=== PATIENT | female | born 1940 | race Caucasian/White ===

== ENCOUNTER 2016-08-11 06:34 | Day surgery (SDC) | payer MEDICARE, MEDICAID ==
[2016-08-11] VITALS (7 sets, daily range): BP systolic 106–139; BP diastolic 55–102; PULSE 60–77; RESP 12–20; TEMP 97–97.8; O2SAT 96–97; Ht 165.1 cm; Wt 53.2 kg
[~2016-08-11] VITALS: Ht 165.1 cm; Wt 53.2 kg
[~2016-08-11 06:34] MED LIST: ALBU18HF2 PO; COD1CAPS7 PO; CYAN10009 PO; CYAN1TAB46 PO; DIPH25CA84 PO; FLUT1AER INH; LEVO75TA10 PO; MOME13HF3 INH; MULT1TAB69 PO; VITA1TAB21 PO; ZINC50TA4 PO
--- OUTSIDE RECORDS SUMMARY | 2016-08-11 06:39 | XMS REPORT | Referral Summary ---
Author Author [facility], [facility] Organization [facility] Address Unknown Phone Unavailable Care Team Providers Care Railway Switchman Name Role Phone Oral Grant Primary Care Physician [phone] Encounter VC Date(s): 07/24/15 - 07/24/15 [facility], [address] [place] [address]- Discharge Diagnosis: External otitis Discharge Disposition: 01-Home or Self Care Attending Physician: Reed Grant MD Admitting Physician: Reed Grant MD Vital Signs Most recent to 1 oldest [Reference Range]: Peripheral Pulse 77 bpm Rate [60-100 bpm] (07/24/15 3:35 PM) Blood Pressure 134/78 mmHg [90-140/60-90 mmHg] (07/24/15 3:35 PM) SpO2 96 % (07/24/15 3:35 PM) Problem List Condition Effective Dates Status Health Status Informant Hay fever(Confirmed) Active allergy Resolved rhinitis(Confirmed) anxiety(Confirmed) Resolved Arthritis(Confirmed) Resolved asthma/emphyzema(Con Resolved firmed) Benign essential Active hypertension(Confirm ed) bipolar(Confirmed) Resolved Breast Active mass(Confirmed) Chronic low back Active pain(Confirmed) COPD (chronic Resolved obstructive pulmonary disease)(Confirmed) Fusion of spine of Active lumbar region(Confirmed) Disc degeneration, Active lumbosacral(Confirme d) Depression(Confirmed Resolved ) dysuria(Confirmed) Resolved Emphysema(Confirmed) Resolved GERD Resolved (gastroesophageal reflux disease)(Confirmed) Anxiety(Confirmed) Active History of Active melanoma(Confirmed) Hypothyroidism(Confi Resolved rmed) 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) Colitis(Confirmed) Active Lumbago(Confirmed) Active Lumbar Active post-laminectomy syndrome(Confirmed) Other malaise and Active fatigue(Confirmed) Melanoma(Confirmed) Resolved Lumbar Active radiculitis(Confirme d) Lumbar Active radiculitis(Confirme d) Lumbar disc Active herniation(Confirmed ) reflux(Confirmed) Resolved right eye retinal Resolved tear(Confirmed) stress Resolved incontinence(Confirm ed) Thoracic and Active lumbosacral neuritis(Confirmed) Tobacco Active patient user(Confirmed) Trigonitis(Confirmed Active ) ulcers(Confirmed) Resolved UTI (urinary tract Active infection)(Confirmed ) Vaginitis(Confirmed) Active Allergies, Adverse Reactions, Alerts Substance Reaction Severity Status Bactrim DS Active bismuth subsalicylate Active codeine Active meperidine Active Medications amoxicillin 875 mg oral tablet 875 mg 1 tabs, Oral, BID, X 10 days, # 20 tabs, 0 Refill(s), Pharmacy: [facility] #[id number], 1 tabs Oral BID,x10 days Start Date: 07/24/15 Stop Date: 08/03/15 Status: Ordered cetirizine 10 mg oral tablet 10 mg 1 tabs, Oral, Daily, 0 Refill(s) Start Date: 01/13/15 Status: Ordered Cortisporin otic solution 4 drops, Ear-Right, QID, # 10 mL, 0 Refill(s), Pharmacy: [facility] # [id number] Start Date: 07/24/15 Stop Date: 08/05/15 Status: Ordered estradiol 0.1 mg/g vaginal cream 1 g, Vaginal, 3x/Wk, APPOINTMENT NEEDED PRIOR TO ADDITIONAL REFILLS., # 42 g, 0 Refill(s), Pharmacy: [facility] #[id number] Start Date: 05/22/15 Status: Ordered levothyroxine 75 mcg (0.075 mg) oral tablet See Instructions, TAKE ONE TABLET BY MOUTH DAILY, # 30 tabs, 2 Refill(s), eRx: [facility] #[id number], TAKE ONE TABLET BY MOUTH DAILY Start Date: 02/16/15 Status: Ordered Lexapro 5 mg oral tablet 5 mg 1 tabs, Oral, Daily, # 30 tabs, 1 Refill(s), Pharmacy: [facility] # [id number], 1 tabs Oral Daily Start Date: 03/27/15 Status: Ordered Robaxin 500 mg oral tablet 500 mg 1 tabs, Oral, QID, as needed for pain, # 120 tabs, 0 Refill(s), Pharmacy : [facility] #[id number], 1 tabs Oral QID,PRN:as needed for pain Start Date: 01/22/15 Status: Ordered Symbicort 80 mcg-4.5 mcg/inh inhalation aerosol 2 puffs, Inhalation, BID, # 10.2 g, 3 Refill(s), Pharmacy: [facility] # [id number] Start Date: 05/21/15 Status: Ordered Ventolin HFA 90 mcg/inh inhalation aerosol 2 puffs, Inhalation, QID, # 2 Each, 3 Refill(s), Pharmacy: [facility] # [id number], 2 puffs Inhalation QID Start Date: 01/01/15 Status: Ordered Vitamin B-12 5,000 mcg, 0 Refill(s) Start Date: 10/09/13 Status: Ordered Vitamin B6 100 mg oral tablet 2 tabs, Oral, Daily, 0 Refill(s) Start Date: 10/09/13 Status: Ordered Vitamin C 500 mg, Oral, 0 Refill(s) Start Date: 10/09/13 Status: Ordered Results No data available for this section Immunizations Vaccine Date Refusal Reason tetanus/diphth/pertuss (Tdap) adult/adol1 07/11/15 influenza virus vaccine, inactivated2 02/02/15 influenza virus vaccine, inactivated 02/07/14 influenza virus vaccine, live 01/22/13 pneumococcal 13-valent conjugate vaccine3 02/02/15 pneumococcal 23-polyvalent vaccine 01/16/04 tetanus-diphth toxoids (Td) adult/adol 02/18/08 tetanus-diphth toxoids (Td) adult/adol 08/16/96 tetanus-diphth toxoids (Td) adult/adol 08/16/96 1Location History: given [facility] 2Location History: [facility] 3Location History: [facility] Procedures Procedure Date Related Diagnosis Body Site Right L2-3 Transforminal 12/12/13 Left L4-5 Transforaminal 05/19/11 cystoscopy1 11/05/10 Cholecystectomy;2 2008 Colonoscopy3 07/04/07 Esophagogastroduodenoscopy4 07/04/07 colonoscopies 1999 [facility] - Total abdominal hysterectomy and 1972 bilateral salpingo-oophorectomy hysterectomy5 1968 tonsilectomy 1956 anterior lumbar fusion 2006 Cataract surgery left knee menisectomy skin graft left buttock 11st coaptite suburethral bulking implant 2laparoscopic Dr. Collins 3with polypectomy showing 2 polps of hyperplastic origin. Plan repeat in 10 yrs (06/25/2017) 4Showing fundic gland polyp 5vaginal Social History Social History Type Response Smoking Status Current every day smoker; Type: Cigarettes; Tobacco use per day: 1 Pack; Number of years: 40 Assessment and Plan Extracted from: Title: Ambulatory Patient Education Author: Reed Grant MD Date: Behavioral Health Panic Attacks Panic attacks are sudden, short-livedsurges of severe anxiety, fear, or discomfort. They may occur for no reason when you are relaxed, when you are anxious, or when you are sleeping. Panic attacks may occur for a number of reasons: Healthy people occasionally have panic attacks in extreme, life- threatening situations, such as war or natural disasters. Normal anxiety is a protective mechanism of the body that helps us react to danger (fight or flight response). Panic attacks are often seen with anxiety disorders, such as panic disorder, social anxiety disorder, generalized anxiety disorder, and phobias. Anxiety disorders cause excessive or uncontrollable anxiety. They may interfere with your relationships or other life activities. Panic attacks are sometimes seen with other mental illnesses, such as depression and posttraumatic stress disorder. Certain medical conditions, prescription medicines, and drugs of abuse can cause panic attacks. SYMPTOMS Panic attacks start suddenly, peak within 20 minutes, and are accompanied by four or more of the following symptoms: Pounding heart or fast heart rate (palpitations). Sweating. Trembling or shaking. Shortness of breath or feeling smothered. Feeling choked. Chest pain or discomfort. Nausea or strange feeling in your stomach. Dizziness, light-headedness, or feeling like you will faint. Chills or hot flushes. Numbness or tingling in your lips or hands and feet. Feeling that things are not real or feeling that you are not yourself. Fear of losing control or going crazy. Fear of dying. Some of these symptoms can mimic serious medical conditions. For example, you may think you are having a heart attack. Although panic attacks can be very scary, they are not life threatening. DIAGNOSIS Panic attacks are diagnosed through an assessment by your health care provider. Your health care provider will ask questions about your symptoms, such as where and when they occurred. Your health care provider will also ask about your medical history and use of alcohol and drugs, including prescription medicines. Your health care provider may order blood tests or other studies to rule out a serious medical condition. Your health care provider may refer you to a mental health professional for further evaluation. TREATMENT Most healthy people who have one or two panic attacks in an extreme, life -threatening situation will not require treatment. The treatment for panic attacks associated with anxiety disorders or other mental illness typically involves counseling with a mental health professional, medicine, or a combination of both. Your health care provider will help determine what treatment is best for you. Panic attacks due to physical illness usually go away with treatment of the illness. If prescription medicine is causing panic attacks, talk with your health care provider about stopping the medicine, decreasing the dose, or substituting another medicine. Panic attacks due to alcohol or drug abuse go away with abstinence. Some adults need professional help in order to stop drinking or using drugs. HOME CARE INSTRUCTIONS Take all medicines as directed by your health care provider. Schedule and attend follow-up visits as directed by your health care provider. It is important to keep all your appointments. SEEK MEDICAL CARE IF: You are not able to take your medicines as prescribed. Your symptoms do not improve or get worse. SEEK IMMEDIATE MEDICAL CARE IF: You experience panic attack symptoms that are different than your usual symptoms. You have serious thoughts about hurting yourself or others. You are taking medicine for panic attacks and have a serious side effect. MAKE SURE YOU: Understand these instructions. Will watch your condition. Will get help right away if you are not doing well or get worse. This information is not intended to replace advice given to you by your health care provider. Make sure you discuss any questions you have with your health care provider. Document Released: 04/24/2006 Document Revised: 04/29/2014 Document Reviewed: [employer] Patient Information 2015 [employer]. Family Medicine Ear Drops You have been diagnosed with a condition requiring you to put drops of medicine into your outer ear. HOME CARE INSTRUCTIONS Put drops in the affected ear as instructed. After putting the drops in, you will need to lie down with the affected ear facing up for ten minutes so the drops will remain in the ear canal and run down and fill the canal. Continue using the ear drops for as long as directed by your health care provider. Prior to getting up, put a cotton ball gently in your ear canal. Leave enough of the cotton ball out so it can be easily removed. Do not attempt to push this down into the canal with a cotton-tipped swab or other instrument. Do not irrigate or wash out your ears if you have had a perforated eardrum or mastoid surgery, or unless instructed to do so by your health care provider. Keep appointments with your health care provider as instructed. Finish all medicine, or use for the length of time prescribed by your health care provider. Continue the drops even if your problem seems to be doing well after a couple days, or continue as instructed. SEEK MEDICAL CARE IF: You become worse or develop increasing pain. You notice any unusual drainage from your ear (particularly if the drainage has a bad smell). You develop hearing difficulties. You experience a serious form of dizziness in which you feel as if the room is spinning, and you feel nauseated (vertigo). The outside of your ear becomes red or swollen or both. This may be a sign of an allergic reaction. MAKE SURE YOU: Understand these instructions. Will watch your condition. Will get help right away if you are not doing well or get worse. This information is not intended to replace advice given to you by your health care provider. Make sure you discuss any questions you have with your health care provider. Document Released: 04/18/2002 Document Revised: 04/29/2014 Document Reviewed: [facility] Patient Information 2015 [employer]. Abscess An abscess is an infected area that contains a collection of pus and debris. It can occur in almost any part of the body. An abscess is also known as a furuncle or boil. CAUSES An abscess occurs when tissue gets infected. This can occur from blockage of oil or sweat glands, infection of hair follicles, or a minor injury to the skin. As the body tries to fight the infection, pus collects in the area and creates pressure under the skin. This pressure causes pain. People with weakened immune systems have difficulty fighting infections and get certain abscesses more often. SYMPTOMS Usually an abscess develops on the skin and becomes a painful mass that is red, warm, and tender. If the abscess forms under the skin, you may feel a moveable soft area under the skin. Some abscesses break open (rupture) on their own, but most will continue to get worse without care. The infection can spread deeper into the body and eventually into the bloodstream, causing you to feel ill. DIAGNOSIS Your caregiver will take your medical history and perform a physical exam. A sample of fluid may also be taken from the abscess to determine what is causing your infection. TREATMENT Your caregiver may prescribe antibiotic medicines to fight the infection. However, taking antibiotics alone usually does not cure an abscess. Your caregiver may need to make a small cut (incision) in the abscess to drain the pus. In some cases, gauze is packed into the abscess to reduce pain and to continue draining the area. HOME CARE INSTRUCTIONS Only take cden-djo-gboinru or prescription medicines for pain, discomfort , or fever as directed by your caregiver. If you were prescribed antibiotics, take them as directed. Finish them even if you start to feel better. If gauze is used, follow your caregiver's directions for changing the gauze. To avoid spreading the infection: Keep your draining abscess covered with a bandage. Wash your hands well. Do not share personal care items, towels, or whirlpools with others. Avoid skin contact with others. Keep your skin and clothes clean around the abscess. Keep all follow-up appointments as directed by your caregiver. SEEK MEDICAL CARE IF: You have increased pain, swelling, redness, fluid drainage, or bleeding. You have muscle aches, chills, or a general ill feeling. You have a fever. MAKE SURE YOU: Understand these instructions. Will watch your condition. Will get help right away if you are not doing well or get worse. This information is not intended to replace advice given to you by your health care provider. Make sure you discuss any questions you have with your health care provider. Document Released: 02/01/2006 Document Revised: 10/23/2012 Document Reviewed: [employer] Patient Information 2015 [employer]. No follow up information was provided. Extracted from: Title: Office Visit Note Author: Reed Grant MD Date: 07/24/15 Assessment/Plan Abscess of right external ear, External otitis Cortisporin Otic, Amoxicillin 875mg bid. Ordered: Office Visit Level 4 Est 64260 Anxiety Would like to get her back on Lexapro but she refused. Ordered: Office Visit Level 4 Est 36620 Orders: amoxicillin, 875 mg 1 tabs, Oral, BID, X 10 days, # 20 tabs, 0 Refill( s), Pharmacy: [facility] #[id number], 1 tabs Oral BID,x10 days neomycin/polymyxin B/hydrocortisone otic, 4 drops, Ear-Right, QID, # 10 mL, 0 Refill(s), Pharmacy: [facility] #[id number]
--- OUTSIDE RECORDS SUMMARY | 2016-08-11 06:39 | XMS REPORT | Summary of Care ---
Author Author Mykel Benavides, Lewis Organization Unknown Address Unknown Phone Unavailable Care Team Providers Care Resident Buyer Name Role Phone Lewis Hogue M.D. Unavailable Unavailable Reed Grant Unavailable Unavailable Unavailable Unavailable Functional Status Name Dates Details Functional status health issues are not documented Status: Name Dates Details Cognitive status health issues are not documented Status: Problems Name Dates Details Hypertension (401.9, I10) Status: Active Anxiety (300.00, F41.9) Status: Active Colitis (558.9, K52.9) Status: Active Chronic low back pain (724.2, M54.5) Status: Active Disc degeneration (722.6) Status: Active UTI (urinary tract infection) (599.0, N39.0) Status: Active Vaginitis (616.10, N76.0) Status: Active Trigonitis (595.3, N30.30) Status: Active 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 * Start 23-Feb-2016 Active Ventolin HFA 108 (90 Base) MCG/ACT Inhalation Aerosol Solution * Refills: 0 Lewis Hogue M.D. * Start 23-Feb-2016 Active Cetirizine HCl - 10 MG Oral Tablet TAKE 1 TABLET DAILY DIRECTED. * Refills: 0 * Start 26-Feb-2016 Active Cod Liver Oil Oral Capsule 1 capsule daily * Refills: 0 * Start 26-Feb-2016 Active Estrace 0.1 MG/GM Vaginal Cream APPLY A PEA-SIZED AMOUNT TO VAGINAL OPENING EVERY MONDAY, MONDAY, AND MONDAY EVENING. * Refills: 0 * Start 26-Feb-2016 Active Ferrous Sulfate 27 MG Oral Tablet TAKE DIRECTED. * Refills: 0 * Start 26-Feb-2016 Active Lexapro 5 MG Oral Tablet TAKE 1 TABLET DAILY. * Refills: 0 * Start 26-Feb-2016 Active Robaxin 500 MG Oral Tablet TAKE 1 TABLET 3 TIMES DAILY. * Refills: 0 * Start 26-Feb-2016 Active Symbicort 80-4.5 MCG/ACT Inhalation Aerosol INHALE 2 PUFFS TWICE DAILY. RINSE MOUTH AFTER USE. * Refills: 0 * Start 26-Feb-2016 Active Vitamin B12 1000 MCG Oral Tablet Extended Release 5000mcg daily * Refills: 0 * Start 26-Feb-2016 Active Vitamin B6 200 MG Oral Tablet TAKE 1 TABLET DAILY DIRECTED. * Refills: 0 * Start 26-Feb-2016 Active Vitamin C 500 MG Oral Tablet TAKE 1 TABLET DAILY. * Refills: 0 * Start 26-Feb-2016 Active Allergies and Adverse Reactions Name Dates Details Bactrim (Allergy) Status: Active codeine (Allergy) Status: Active meperidine (Allergy) Status: Active Pepto-Bismol (Allergy) Status: Active Past Medical History Name Dates Details History of Bipolar depression (296.50, F31.30) Status: Resolved History of chronic obstructive lung disease (V12.69, Z87.09) Status: Resolved History of depression (V11.8, Z86.59) Status: Resolved History of Dysuria (788.1, R30.0) Status: Resolved History of esophageal reflux (V12.79, Z87.19) Status: Resolved History of hypothyroidism (V12.29, Z86.39) Status: Resolved History of malignant melanoma (V10.82, Z85.820) Status: Resolved History of pulmonary emphysema (V12.69, Z87.09) Status: Resolved History of Stress incontinence, female (625.6, N39.3) Status: Resolved Procedures Procedure Dates Details History of Hysterectomy History of Tonsillectomy History of Salpingo-oophorectomy Bilat Laparosc Removal Of Both Ovaries & Tubes History of Cystoscopy (Diagnostic) History of Cholecystectomy History of Colonoscopy History of Diagnostic Esophagogastroduodenoscopy History of Cataract Extraction History of Arthrodesis Lumbar By Anterior Approach History of Graft Harvesting Procedures not documented Immunization Name Dates Details Immunizations not documented Family History Name Dates Details Family history of asthma (V17.5, Z82.5) Status: Active Family history of Parkinson disease, symptomatic (332.0, G20) Status: Active Name Dates Details Family history of Emphysema lung (492.8, J43.9) Status: Active Name Dates Details Family history of lung cancer (V16.1, Z80.1) Status: Active Social History Name Dates Details - Status: Name Dates Details Current every day smoker Vital Signs Date Test Result Details 22-Mar-2016 10:47 Temperature 98.1 f Status: Comments: Method: Heart Rate 90 /min Status: Comments: Location: ; Physical Findings 96 Status: Comments: O2 Saturation 16-Mar-2016 13:45 BP Systolic 121 mm[Hg] Status: Comments: Location: ; Position: BP Diastolic 66 mm[Hg] Status: Comments: Location: ; Position: Heart Rate 75 /min Status: Comments: Location: ; Height 65.5 in Status: Weight 106 lb Status: Body Mass Index Calculated 17.37 kg/m2 Status: Body Surface Area Calculated 1.52 m2 Status: 23-Feb-2016 11:35 BP Systolic 127 mm[Hg] Status: BP Diastolic 80 mm[Hg] Status: Temperature 97.9 f Status: Comments: Method: Heart Rate 79 /min Status: Comments: Location: ; Height 65.5 in Status: Weight 106 lb Status: Body Mass Index Calculated 17.37 kg/m2 Status: Body Surface Area Calculated 1.52 m2 Status: Results Date Description Value Details Results not documented Plan of Care Name Dates Details Planned Observations Planned Goals not documented Planned Encounters Appointment; Provider: Brandon Brice M.D. On 23-Mar-2016 15:30 Instructions Name Dates Details Instructions not documented Encounters Appointment; Brandon Brice M.D. Encounter Diagnosis: Problem not documented On 16-Mar-2016 13:45 Appointment; Lewis Hogue M.D. Encounter Diagnosis: Problem not documented On 23-Feb-2016 11:00
--- OUTSIDE RECORDS SUMMARY | 2016-08-11 06:39 | XMS REPORT | Referral Summary ---
Author Author [facility] Medicine Organization [facility] Address Unknown Phone Unavailable Care Team Providers Care Citizenship Instructor Name Role Phone Oral Grant Primary Care Physician [phone] Encounter VC Date(s): 03/21/16 - 03/21/16 [facility] [address] [place] [address] Discharge Diagnosis: Emphysema/COPD Discharge Diagnosis: Chronic obstructive pulmonary disease, unspecified Discharge Diagnosis: Anxiety Discharge Disposition: 01-Home or Self Care Attending Physician: Reed Grant MD Admitting Physician: Reed Grant MD Vital Signs Most recent to 1 oldest [Reference Range]: Blood Pressure 106/64 mmHg [90-140/60-90 mmHg] (03/21/16 11:14 AM) Problem List Condition Effective Dates Status Health [...] subsalicylate Active codeine Active meperidine Active Medications cetirizine 10 mg oral tablet 10 mg 1 tabs, Oral, Daily, 0 Refill(s) Start Date: 01/13/15 Status: Ordered Cod Liver Oil oral capsule 1 caps, Oral, Daily, # 30 caps, 0 Refill(s) Start Date: 11/02/15 Status: Ordered Estrace Vaginal 0.1 mg/g vaginal cream See Instructions, APPLY 1 GM VAGINALLY 3 TIMES WEEKLY -- MUST CALL MD FOR APPOINTMENT, # 42.5 unknown unit, eRx: [facility] #[id number], APPLY 1 GM VAGINALLY 3 TIMES WEEKLY -- MUST CALL MD FOR APPOINTMENT Start Date: 01/19/16 Status: Ordered ferrous sulfate Oral, 0 Refill(s) Start Date: 12/30/15 Status: Ordered levothyroxine 75 mcg (0.075 mg) oral tablet See Instructions, TAKE ONE TABLET BY MOUTH DAILY, # 30 tabs, eRx: [facility] #[id number], TAKE ONE TABLET BY MOUTH DAILY Start Date: 03/09/16 Status: Ordered Lexapro 5 mg oral tablet 5 mg 1 tabs, Oral, Daily, # 30 tabs, 1 Refill(s), Pharmacy: [facility] # [id number], 1 tabs Oral Daily Start Date: 03/27/15 Status: Ordered Robaxin 500 mg oral tablet 500 mg 1 tabs, Oral, QID, as needed for pain, # 120 tabs, 0 Refill(s), Pharmacy : [facility] #[id number], 1 tabs Oral QID,PRN:as needed for pain Start Date: 01/22/15 Status: Ordered Ventolin HFA 90 mcg/inh inhalation aerosol See Instructions, INHALE TWO PUFFS BY MOUTH FOUR TIMES A DAY NEEDED FOR WHEEZING, # 18 unknown unit, 2 Refill(s), eRx: [facility] #[id number], INHALE TWO PUFFS BY MOUTH FOUR TIMES A DAY NEEDED FOR WHEEZING Start Date: 02/05/16 Status: Ordered Vitamin B-12 5,000 mcg, 0 Refill(s) Start Date: 10/09/13 Status: Ordered Vitamin B6 100 mg oral tablet 2 tabs, Oral, Daily, 0 Refill(s) Start Date: 10/09/13 Status: Ordered Vitamin C 500 mg, Oral, 0 Refill(s) Start Date: 10/09/13 Status: Ordered Results No data available for this section Immunizations Vaccine Date Refusal Reason tetanus/diphth/pertuss (Tdap) adult/adol1 07/11/15 influenza virus vaccine, inactivated 02/24/16 influenza virus vaccine, inactivated2 02/02/15 influenza virus vaccine, inactivated 02/07/14 influenza virus vaccine, live 01/22/13 pneumococcal 13-valent conjugate vaccine3 02/02/15 pneumococcal 23-polyvalent vaccine 01/16/04 tetanus-diphth toxoids (Td) adult/adol 02/18/08 tetanus-diphth toxoids (Td) adult/adol 08/16/96 tetanus-diphth toxoids (Td) adult/adol 08/16/96 1Location History: given [facility] 2Location History: [place] 3Location History: [place] Procedures Procedure Date Related Diagnosis Body Site Right L2-3 Transforminal 12/12/13 Left L4-5 Transforaminal 05/19/11 cystoscopy1 11/05/10 Cholecystectomy;2 2008 Colonoscopy3 07/04/07 Esophagogastroduodenoscopy4 07/04/07 colonoscopies 1999 BSO - Total abdominal hysterectomy and 1972 bilateral salpingo-oophorectomy hysterectomy5 1967 tonsilectomy 1956 anterior lumbar fusion 2006 Cataract surgery left knee menisectomy skin graft left buttock 11st coaptite suburethral bulking implant 2laparoscopic Dr. Collins 3with polypectomy showing 2 polps of hyperplastic origin. Plan repeat in 10 yrs (06/25/2017) 4Showing fundic gland polyp 5vaginal Social History Social History Type Response Smoking Status Current every day smoker; Type: Cigarettes; Tobacco use per day: Pack; Number of years: 40 Assessment and Plan Extracted from: Title: Ambulatory Patient Education Author: Reed Grant MD Date: Emergency Medicine Chronic Obstructive Pulmonary Disease Chronic obstructive pulmonary disease (COPD) is a common lung condition in which airflow from the lungs is limited. COPD is a general term that can be used to describe many different lung problems that limit airflow, including both chronic bronchitis and emphysema. If you have COPD, your lung function will probably never return to normal, but there are measures you can take to improve lung function and make yourself feel better. CAUSES Smoking (common). Exposure to secondhand smoke. Genetic problems. Chronic inflammatory lung diseases or recurrent infections. SYMPTOMS Shortness of breath, especially with physical activity. Deep, persistent (chronic) cough with a large amount of thick mucus. Wheezing. Rapid breaths (tachypnea). Villarreal or bluish discoloration (cyanosis) of the skin, especially in your fingers, toes, or lips. Fatigue. Weight loss. Frequent infections or episodes when breathing symptoms become much worse (exacerbations). Chest tightness. DIAGNOSIS Your health care provider will take a medical history and perform a physical examination to diagnose COPD. Additional tests for COPD may include: Lung (pulmonary) function tests. Chest X-ray. CT scan. Blood tests. TREATMENT Treatment for COPD may include: Inhaler and nebulizer medicines. These help manage the symptoms of COPD and make your breathing more comfortable. Supplemental oxygen. Supplemental oxygen is only helpful if you have a low oxygen level in your blood. Exercise and physical activity. These are beneficial for nearly all people with COPD. Lung surgery or transplant. Nutrition therapy to gain weight, if you are underweight. Pulmonary rehabilitation. This may involve working with a team of health care providers and specialists, such as respiratory, occupational, and physical therapists. HOME CARE INSTRUCTIONS Take all medicines (inhaled or pills) as directed by your health care provider. Avoid juyc-xdr-qchreex medicines or cough syrups that dry up your airway (such as antihistamines) and slow down the elimination of secretions unless instructed otherwise by your health care provider. If you are a smoker, the most important thing that you can do is stop smoking. Continuing to smoke will cause further lung damage and breathing trouble. Ask your health care provider for help with quitting smoking. He or she can direct you to community resources or hospitals that provide support. Avoid exposure to irritants such as smoke, chemicals, and fumes that aggravate your breathing. Use oxygen therapy and pulmonary rehabilitation if directed by your health care provider. If you require home oxygen therapy, ask your health care provider whether you should purchase a pulse oximeter to measure your oxygen level at home. Avoid contact with individuals who have a contagious illness. Avoid extreme temperature and humidity changes. Eat healthy foods. Eating smaller, more frequent meals and resting before meals may help you maintain your strength. Stay active, but balance activity with periods of rest. Exercise and physical activity will help you maintain your ability to do things you want to do. Preventing infection and hospitalization is very important when you have COPD. Make sure to receive all the vaccines your health care provider recommends , especially the pneumococcal and influenza vaccines. Ask your health care provider whether you need a pneumonia vaccine. Learn and use relaxation techniques to manage stress. Learn and use controlled breathing techniques as directed by your health care provider. Controlled breathing techniques include: Pursed lip breathing. Start by breathing in (inhaling) through your nose for 1 second. Then, purse your lips as if you were going to whistle and breathe out (exhale) through the pursed lips for 2 seconds. Diaphragmatic breathing. Start by putting one hand on your abdomen just above your waist. Inhale slowly through your nose. The hand on your abdomen should move out. Then purse your lips and exhale slowly. You should be able to feel the hand on your abdomen moving in as you exhale. Learn and use controlled coughing to clear mucus from your lungs. Controlled coughing is a series of short, progressive coughs. The steps of controlled coughing are: 1.Lean your head slightly forward. 2.Breathe in deeply using diaphragmatic breathing. 3.Try to hold your breath for 3 seconds. 4.Keep your mouth slightly open while coughing twice. 5.Spit any mucus out into a tissue. 6.Rest and repeat the steps once or twice as needed. SEEK MEDICAL CARE IF: You are coughing up more mucus than usual. There is a change in the color or thickness of your mucus. Your breathing is more labored than usual. Your breathing is faster than usual. SEEK IMMEDIATE MEDICAL CARE IF: You have shortness of breath while you are resting. You have shortness of breath that prevents you from: Being able to talk. Performing your usual physical activities. You have chest pain lasting longer than 5 minutes. Your skin color is more cyanotic than usual. You measure low oxygen saturations for longer than 5 minutes with a pulse oximeter. MAKE SURE YOU: Understand these instructions. Will watch your condition. Will get help right away if you are not doing well or get worse. This information is not intended to replace advice given to you by your health care provider. Make sure you discuss any questions you have with your health care provider. Document Released: 02/01/2006 Document Revised: 05/15/2015 Document Reviewed: [employer] Interactive Patient Education 2016 [employer] No follow up information was provided. Extracted from: Title: Office Visit Note Author: Reed Grant MD Date: 03/21/16 Assessment/Plan 1.Anxiety No change in treatment. Ordered: Office Visit Level 4 Est 87266 2.Emphysema/COPD, Will start patient on Breo inhaler daily and follow upin 1 month. Chronic obstructive pulmonary disease, unspecified Ordered: Office Visit Level 4 Est 00047
--- OUTSIDE RECORDS SUMMARY | 2016-08-11 06:39 | XMS REPORT | Summary of Care ---
Author Author Lewis Hogue M.D. Organization Unknown Address Unknown Phone Unavailable Care Team Providers Care Licensed Veterinary Technician Name Role Phone Lewis Hogue M.D. Unavailable Unavailable Reed Grant Unavailable Unavailable Unavailable Unavailable Functional Status Name Dates Details Functional status health issues are not documented Status: Name Dates Details Cognitive status health issues are not documented Status: Problems Name Dates Details Active medical history not documented Status: Medications Name Dates Details Levothyroxine Sodium 75 MCG Oral Tablet Lewis Hogue M.D. * Start 23-Feb-2016 Active Ventolin HFA 108 (90 Base) MCG/ACT Inhalation Aerosol Solution * Refills: 0 Lewis Hogue M.D. * Start 23-Feb-2016 Active Allergies and Adverse Reactions Name Dates Details Pepto-Bismol (Allergy) Status: Active Procedures Procedure Dates Details Procedures not documented Immunization Name Dates Details Immunizations not documented Family History Name Dates Details No pertinent family history Status: Active Social History Name Dates Details - Status: Name Dates Details Current every day smoker Vital Signs Date Test Result Details 23-Feb-2016 11:35 BP Systolic 127 mm[Hg] Status: Comments: Location: ; Position: BP Diastolic 80 mm[Hg] Status: Comments: Location: ; Position: Temperature 97.9 f Status: Comments: Method: Heart Rate 79 /min Status: Comments: Location: ; Height 65.5 in Status: Weight 106 lb Status: Body Mass Index Calculated 17.37 kg/m2 Status: Body Surface Area Calculated 1.52 m2 Status: Results Date Description Value Details Results not documented Plan of Care Name Dates Details Planned Observations Planned Goals not documented Instructions Name Dates Details Instructions not documented Encounters Appointment; Lewis Hogue M.D. Encounter Diagnosis: Problem not documented On 23-Feb-2016 11:00
--- OUTSIDE RECORDS SUMMARY | 2016-08-11 06:39 | XMS REPORT | Referral Summary ---
Author Author [facility] Medicine Organization [facility] Address Unknown Phone Unavailable Care Team Providers Care Leather Goods Sales Representative Name Role Phone Oral Grant Primary Care Physician [phone] Encounter VC Date(s): 01/29/15 - 01/29/15 [facility] [address] [place] [address]- Discharge Disposition: 01-Home or Self Care Attending Physician: Reed Grant MD Admitting Physician: Reed Grant MD Vital Signs Most recent to 1 oldest [Reference Range]: Blood Pressure 102/72 mmHg [90-140/60-90 mmHg] (01/29/15 10:39 AM) Problem List Condition Effective Dates Status [...] 0 Refill(s) Start Date: 01/13/15 Status: Ordered estradiol 0.1 mg/g vaginal cream 1 g, Vaginal, 3x/Wk, APPOINTMENT NEEDED PRIOR TO ADDITIONAL REFILLS., # 42 g, 0 Refill(s), Pharmacy: [facility] #[id number] Start Date: 05/22/15 Status: Ordered levothyroxine 75 mcg (0.075 mg) oral tablet See Instructions, TAKE ONE TABLET BY MOUTH DAILY, # 30 tabs, 2 Refill(s), eRx: [facility] #[id number], TAKE ONE TABLET BY MOUTH DAILY Start Date: 02/16/15 Status: Ordered Lexapro 5 mg oral tablet 5 mg 1 tabs, Oral, Daily, # 30 tabs, 1 Refill(s), Pharmacy: [facility] # [id number], 1 tabs Oral Daily Start Date: 03/27/15 Status: Ordered Robaxin 500 mg oral tablet 500 mg 1 tabs, Oral, QID, as needed for pain, # 120 tabs, 0 Refill(s), Pharmacy : [facility] #[id number], 1 tabs Oral QID,PRN:as needed for pain Start Date: 01/22/15 Status: Ordered Symbicort 80 mcg-4.5 mcg/inh inhalation aerosol 2 puffs, Inhalation, BID, # 10.2 g, 3 Refill(s), Pharmacy: [facility] # [id number] Start Date: 05/21/15 Status: Ordered Ventolin HFA 90 mcg/inh inhalation aerosol 2 puffs, Inhalation, QID, # 2 Each, 3 Refill(s), Pharmacy: [facility] # [id number], 2 puffs Inhalation QID Start Date: 01/01/15 Status: Ordered Vitamin B-12 5,000 mcg, 0 Refill(s) Start Date: 10/09/13 Status: Ordered Vitamin B6 100 mg oral tablet 2 tabs, Oral, Daily, 0 Refill(s) Start Date: 10/09/13 Status: Ordered Vitamin C 500 mg, Oral, 0 Refill(s) Start Date: 10/09/13 Status: Ordered Results Chemistry Most recent to 1 oldest [Reference Range]: T4 [4.8-11.7 mcg/dL] 7.3 mcg/dL (01/29/15 11:10 AM) TSH [0.35-4.94] 4.04 (01/29/15 11:10 AM) Immunizations Vaccine Date Refusal Reason tetanus/diphth/pertuss (Tdap) [...] hysterectomy5 1968 tonsilectomy 1956 anterior lumbar fusion 2005 Cataract surgery left knee menisectomy skin graft [...] Patient Education Author: Reed Grant MD Date: Family Medicine Hypothyroidism The thyroid is a large gland located in the lower front of your neck. The thyroid gland helps control metabolism. Metabolism is how your body handles food. It controls metabolism with the hormone thyroxine. When this gland is underactive (hypothyroid), it produces too little hormone. CAUSES These include: Absence or destruction of thyroid tissue. Goiter due to iodine deficiency. Goiter due to medications. Congenital defects (since ). Problems with the pituitary. This causes a lack of TSH (thyroid stimulating hormone). This hormone tells the thyroid to test and turn up technician more hormone. SYMPTOMS Lethargy (feeling as though you have no energy) Cold intolerance Weight gain (in spite of normal food intake) Dry skin Coarse hair Menstrual irregularity (if severe, may lead to infertility) Slowing of thought processes Cardiac problems are also caused by insufficient amounts of thyroid hormone. Hypothyroidism in the is cretinism, and is an extreme form. It is important that this form be treated adequately and immediately or it will lead rapidly to retarded physical and mental development. DIAGNOSIS To prove hypothyroidism, your caregiver may do blood tests and ultrasound tests. Sometimes the signs are hidden. It may be necessary for your caregiver to watch this illness with blood tests either before or after diagnosis and treatment. TREATMENT Low levels of thyroid hormone are increased by using synthetic thyroid hormone. This is a safe, effective treatment. It usually takes about four weeks to gain the full effects of the medication. After you have the full effect of the medication, it will generally take another four weeks for problems to leave. Your caregiver may start you on low doses. If you have had heart problems the dose may be gradually increased. It is generally not an emergency to get rapidly to normal. HOME CARE INSTRUCTIONS Take your medications as your caregiver suggests. Let your caregiver know of any medications you are taking or start taking. Your caregiver will help you with dosage schedules. As your condition improves, your dosage needs may increase. It will be necessary to have continuing blood tests as suggested by your caregiver. Report all suspected medication side effects to your caregiver. SEEK MEDICAL CARE IF: Seek medical care if you develop: Sweating. Tremulousness (tremors). Anxiety. Rapid weight loss. Heat intolerance. Emotional swings. Diarrhea. Weakness. SEEK IMMEDIATE MEDICAL CARE IF: You develop chest pain, an irregular heart beat (palpitations), or a rapid heart beat. MAKE SURE YOU: Understand these instructions. Will watch your condition. Will get help right away if you are not doing well or get worse. Document Released: 04/24/2006 Document Revised: 07/16/2012 Document Reviewed: ExitCare Patient Information 2015 [employer] [facility]. This information is not intended to replace advice given to you by your health care provider. Make sure you discuss any questions you have with your health care provider. No follow up information was provided. Extracted from: Title: Office Visit Note Author: Reed Grant MD Date: 01/29/15 Assessment/Plan Anxiety Continue with the current medications. Ordered: Office Visit Level 3 Est 19483 Disc degeneration, lumbosacral Ordered: Office Visit Level 3 Est 27057 Hypothyroidism Will further evaluate with some lab. Ordered: Office Visit Level 3 Est 83782
--- OUTSIDE RECORDS SUMMARY | 2016-08-11 06:40 | XMS REPORT | Referral Summary ---
Author Author [facility], [facility] Organization [facility] Address Unknown Phone Unavailable Care Team Providers Care Boat And Plant Utility Supervisor Name Role Phone Oral Grant Primary Care Physician [phone] Encounter VC Date(s): 07/03/15 - 07/03/15 [facility], [address] [place] [address]- Discharge Diagnosis: Generalized anxiety disorder Discharge Diagnosis: Other malaise and fatigue Discharge Disposition: 01-Home or Self Care Attending Physician: Reed Grant MD Admitting Physician: Reed Grant MD Vital Signs Most recent to 1 oldest [Reference Range]: Peripheral Pulse 84 bpm Rate [60-100 bpm] (07/03/15 3:33 PM) Respiratory Rate 16 br/min [14-20 br/min] (07/03/15 3:33 PM) Blood Pressure 102/68 mmHg [90-140/60-90 mmHg] (07/03/15 3:33 PM) Problem List Condition Effective Dates Status [...] REFILLS., # 42 g, 0 Refill(s), Pharmacy: [facility] #[id number] Start Date: 05/22/15 Status: Ordered levothyroxine 75 mcg (0.075 mg) oral tablet See Instructions, TAKE ONE TABLET BY MOUTH DAILY, # 30 tabs, 2 Refill(s), eRx: [facility] #[id number], TAKE ONE TABLET BY MOUTH DAILY Start Date: 02/16/15 Status: Ordered Lexapro 5 mg oral tablet 5 mg 1 tabs, Oral, Daily, # 30 tabs, 1 Refill(s), Pharmacy: [facility] # [id number], 1 tabs Oral Daily Start Date: 03/27/15 Status: Ordered Robaxin 500 mg oral tablet 500 mg 1 tabs, Oral, QID, as needed for pain, # 120 tabs, 0 Refill(s), Pharmacy : [facility] #[id number], 1 tabs Oral QID,PRN:as needed for pain Start Date: 01/22/15 Status: Ordered Symbicort 80 mcg-4.5 mcg/inh inhalation aerosol 2 puffs, Inhalation, BID, # 10.2 g, 3 Refill(s), Pharmacy: [facility] # [id number] Start Date: 05/21/15 Status: Ordered Ventolin HFA 90 mcg/inh inhalation aerosol 2 puffs, Inhalation, QID, # 2 Each, 3 Refill(s), Pharmacy: [facility] # [id number], 2 puffs Inhalation QID Start Date: 01/01/15 Status: Ordered Vitamin B-12 5,000 mcg, 0 Refill(s) Start Date: 10/09/13 Status: Ordered Vitamin B6 100 mg oral tablet 2 tabs, Oral, Daily, 0 Refill(s) Start Date: 10/09/13 Status: Ordered Vitamin C 500 mg, Oral, 0 Refill(s) Start Date: 10/09/13 Status: Ordered Results No data available for this section Immunizations Vaccine Date Refusal Reason influenza virus vaccine, inactivated1 02/02/15 influenza virus vaccine, inactivated 02/07/14 influenza virus vaccine, live 01/22/13 pneumococcal 13-valent conjugate vaccine2 02/02/15 pneumococcal 23-polyvalent vaccine 01/16/04 tetanus-diphth toxoids (Td) adult/adol 02/18/08 tetanus-diphth toxoids (Td) adult/adol 08/16/96 tetanus-diphth toxoids (Td) adult/adol 08/16/96 1Location History: [place] 2Location History: [place] Procedures Procedure Date Related Diagnosis [...] 04/29/2014 Document Reviewed: ExitCare Patient Information 2015 [employer] No follow up information was provided. Extracted from: Title: Office Visit Note Author: Reed Grant MD Date: 07/03/15 Assessment/Plan Generalized anxiety disorder, Generalized anxiety disorder Will write up a letter to see if we can get her released from her present contract and move to another location for the senior citizens. Ordered: Office Visit Level 3 Est 31460 Other malaise, Other malaise and fatigue Ordered: Office Visit Level 3 Est 58324
--- OUTSIDE RECORDS SUMMARY | 2016-08-11 06:40 | XMS REPORT ---
Author Author Elizabeth Thurston Organization [employer] Address Unknown Phone Unavailable Care Team Providers Care Public Health Program Manager Name Role Phone Elizabeth Thurston CP Unavailable Allergies, Adverse Reactions, Alerts Substance Reaction Event Type spider bites Info Not Available Non Drug Allergy bee stings Info Not Available Non Drug Allergy codine Info Not Available Non Drug Allergy sulfamide Info Not Available Non Drug Allergy Problems Problem Type Condition Code Onset Dates Condition Status Assessment Right maxillary sinusitis J32.0 Active Medications Medication Code System Code Instructions Start Date End Date Status Dosage Synthroid [facility] [address]-06 75 MCG Orally Once a day 1 tablet on an empty stomach in the morning Augmentin [facility] [address]-29 875-125 MG Orally Twice a day Feb 15, 2016 Feb 22, 2016 1 tablet Zyrtec Allergy [facility] [address]-62 10 MG Orally Once a day 1 capsule Benadryl Allergy [facility] [address]-39 25 MG Orally every 6 hrs 1 tablet as needed Calcium 500+D High Potency [facility] [address]28-70598 500-400 MG-UNIT Orally Twice a day 1 tablet with meals Ventolin HFA [facility] [address]-77 108 (90 Base) MCG/ACT Inhalation every 4 hrs 2 puffs as needed Procedures Procedure Coding System Code Date OFFICE VISIT, EST-LOW COMPLEXITY (15 MIN.) CPT-4 85390 Feb 15, 2016 [facility] visit Established Patient CPT-4 G0467 Feb 15, 2016 Vital Signs Date/Time: Feb 15, 2016 Temperature 97.8 F Height 65.5 in Weight 105.1 lbs Blood Pressure Diastolic 60 mm Hg Blood Pressure Systolic 110 mm Hg Cardiac Monitoring Heart Rate 76 /min BMI 17.22 Index Oximetry 96 % Respiratory Rate 16 /min Results No Known Results Summary Purpose [employer] Submission
--- OUTSIDE RECORDS SUMMARY | 2016-08-11 06:40 | XMS REPORT | Continuity of Care Document ---
Author Author Linda Dias MA Ambulatory Address Unknown Phone Unavailable Care Team Providers Care Loader Unloader Name Role Phone Grant Reed SUMAN Unavailable Payers Payer name Insurance type Covered alliance party ID Authorization(s) Unknown Problems Condition Effective Dates (start - stop) Clinical Status Abdominal Pain - *Chronic Other and unspecified hyperlipidemia - *Chronic Candidiasis of vulva and vagina - *Acute Abdominal pain, unspecified site - *Acute Skin lesion - *Symptomatic Benign neoplasm of other specified sites of skin - COPD exacerbation - *Acute Bronchitis - *Chronic Fibrocystic breast disease - *Chronic Macular degeneration - *Chronic Radiculitis, Thoracic or Lumbar - *Chronic Hypothyroidism - *Fair Control Depression - *Fair Control Insect bite - *Acute Bite of nonvenomous arthropod - *Acute Hypothyroidism - *Chronic Depression - *Chronic Benign mole - *Acute NEED FOR PROPHYLACTIC VACCINATION AND INOCULATION AGAINST TETANUS-DIPHTHERIA [ TD] (DT) - Skin tear - *Acute Anxiety - *Poor control COPD (chronic obstructive pulmonary disease) - *Chronic Lung nodule - *Acute Depression - *Chronic ASTHMA, UNSPECIFIED TYPE, WITH (ACUTE) EXACERBATION - *Chronic Anxiety - *Chronic Bladder pain - *Acute DYSURIA - MALAISE AND FATIGUE NEC - LUMBOSACRAL NEURITIS NOS - LUMB/LUMBOSAC DISC DEGEN - VAGINITIS NOS - INTRINSC SPHNCTR DFICNCY - URIN TRACT INFECTION NOS - TRIGONITIS - PEPTIC ULCER NOS - ASTHMA NOS W (AC) EXAC - ALLERGIC RHINITIS NOS - 311 - DEPRESSIVE DISORDER NEC - Degeneration of lumbar or lumbosacral intervertebral disc - * Chronic Eczema - *Acute Allergic rhinitis - *Acute Emphysema - *Chronic Backache - *Chronic Vaginitis - *Acute Abdominal Pain - *Chronic Skin tag - *Symptomatic Benign neoplasm of other specified sites of skin - Improved Sinusitis, Acute - *Acute Bronchitis, Acute - *Acute Chronic interstitial cystitis - *Chronic OTH SYMPTM URINARY SYSTM - *Chronic STRAINING ON URINATION - *Chronic Cerumen impaction - *Chronic Deafness - *Acute Suture check - *Routine Benign pigmented nevus - *Chronic Family History Family Member Diagnosis Age At Onset Status Family h/o (Unknown) no family hx of anesthetic pro Yes Social History Social History Element Description Quantity alcohol Allergies, Adverse Reactions, Alerts Substance Reaction Severity Status CODEINE Unknown BISMUTH SUBSALICYLATE Unknown MEPERIDINE HCL Unknown PRESERVATIVE FREE Unknown Medications Medication Instructions Dosage Effective Dates (start - stop) Status Vitamin B-6 200 mg tablet,extended release TAKE 2 AT NIGHT - Active vitamin B12 500 mcg-folic acid 400 mcg tablet TAKE 2 TABS AT NIGHT 2011 - Active Atrovent HFA 17 mcg/actuation aerosol inhaler Inhale 2 puffs by inhalation 4 times a day. - Active take 1 Tablet by Oral route 2 times every day with meals 0 - Active Benadryl 25 mg capsule qid - Active Remeron 15 mg tablet take 1 tablet (15MG) by oral route every day before bedtime 15 MG - Active Vitamin C 500 mg tablet take 1 Tablet by Oral route every day 0 2013 - Active vitamin A-vitamin D3 5,000 unit-400 unit capsule daily - Active ProAir HFA 90 mcg/actuation aerosol inhaler inhale 2 puff by inhalation route 4 times every day as needed 0 - Active levothyroxine 75 mcg tablet take 1 tablet (75MCG) by oral route every day 75 MCG - Active [facility] to evaluate for services following eye surgery DX: 362.50 - Active Flexeril 10 mg tablet take 1 tablet (10MG) by oral route every 8 hours as needed 10 MG - Active Mobic 7.5 mg tablet take 1 tablet (7.5MG) by oral route 2 times every day 7.5 MG - Active Immunizations Vaccine Date Status Comments Td (7 yrs or older) cancelled - Cancelled reason: ALREADY HAD ONE flu (split) (3 yrs or older) completed - Completed reason: public agency flu (split) (3 yrs or older) completed - Completed reason: public agency Td (adult) completed - Completed reason: source unspecified Td (adult) completed - Completed reason: source unspecified pneumo (2 yrs or older) (PPV23) completed - Completed reason: source unspecified Results Test Name Date and Time Measure Units Reference Range Abnormal Flag Comments Panel Description: Metabolic Profile Glucose 15:25:00 94 mg/dL 70-99 BUN 15:25:00 17 mg/dL 10-20 Creatinine 15:25:00 0.74 mg/dL 0.57-1.11 Calcium 15:25:00 10.3 mg/dL 8.9-10.5 Sodium 15:25:00 139 mEq/L 135-144 Potassium 15:25:00 4.3 mEq/L 3.5-5.2 Chloride 15:25:00 103 mEq/L 99-111 CO2 15:25:00 27 mEq/L 22-31 Anion Gap 15:25:00 9 3-20 Testing performed at [facility] [address] [place] [id number] Insurance Sales Executive Nitin Villanueva MD Panel Description: EGFR-[facility] eGFR 15:25:00 >60 mL/min >60 Multiply eGFR results by 1.21 for race.Testing performed at [facility] [address] [place] [id number] Insurance Sales Executive Nitin Villanueva MD Vital Signs Date / Time: Height Weight Pulse Rate Blood Pressure Temperature /14:40:00 65.00 in 114.00 lbs 106/60 mm[Hg] 98.3 F Procedures Procedure Date Unknown Encounters En[facility] Patient [facility] Advance Directives Directive Effective Date Unknown
--- OUTSIDE RECORDS SUMMARY | 2016-08-11 06:40 | XMS REPORT | Referral Summary ---
Author Author [facility], Family Medicine Organization [facility] Address Unknown Phone Unavailable Care Team Providers Care Pneumatic Tool Repairer Name Role Phone Oral Grant Primary Care Physician [phone] Encounter [facility] Date(s): 01/29/15 - 01/29/15 [facility], [address] [place] [address]- Discharge Disposition: 01-Home or Self Care Attending Physician: Reed Grant MD Admitting Physician: Reed Grant MD Vital Signs Most recent to 1 oldest [Reference Range]: Blood Pressure 102/72 mmHg [90-140/60-90 mmHg] (01/29/15 10:39 AM) Problem List Condition Effective Dates Status Health Status Informant Hay fever(Confirmed) Active allergy Resolved rhinitis(Confirmed) Anxiety(Confirmed) Active anxiety(Confirmed) Resolved Arthritis(Confirmed) Resolved asthma/emphyzema(Con Resolved firmed) bipolar(Confirmed) Resolved Breast Active mass(Confirmed) Chronic low back Active pain(Confirmed) COPD (chronic Resolved obstructive pulmonary disease)(Confirmed) Fusion of spine of Active lumbar region(Confirmed) Disc degeneration, Active lumbosacral(Confirme d) Depression(Confirmed Resolved ) dysuria(Confirmed) Resolved Emphysema(Confirmed) Resolved GERD Resolved (gastroesophageal reflux disease)(Confirmed) History of Active melanoma(Confirmed) Hypothyroidism(Confi Resolved rmed) [...] 0 Refill(s) Start Date: 01/13/15 Status: Ordered Dulera 200 mcg-5 mcg/inh inhalation aerosol See Instructions, INHALE TWO PUFFS BY MOUTH TWICE A DAY, # 13 g, 2 Refill(s), Pharmacy: [facility] #[id number] Start Date: 01/01/15 Status: Ordered levothyroxine 75 mcg (0.075 mg) oral tablet See Instructions, TAKE ONE TABLET BY MOUTH ONCE A DAY, # 30 tabs, 2 Refill(s), eRx: [facility] #[id number], TAKE ONE TABLET BY MOUTH ONCE A DAY Start Date: 09/30/14 Status: Ordered Mobic 7.5 mg oral tablet 1 tabs, Oral, BID, 0 Refill(s) Start Date: 10/09/13 Status: Ordered [place] 5 mg-325 mg oral tablet See Instructions, as needed for pain, 0.5 tabs Oral q6-8hr prn pain, # 10 tabs, 0 Refill(s) Start Date: 12/09/14 Status: Ordered Premarin 0.625 mg/g vaginal cream with applicator See Instructions, 0.5 applicator Vaginal twice a week., # 42 g, 5 Refill(s), Pharmacy: [facility] #[id number] Start Date: 07/21/14 Status: Ordered Robaxin 500 mg oral tablet 500 mg 1 tabs, Oral, QID, as needed for pain, # 120 tabs, 0 Refill(s), Pharmacy : [facility] #[id number], 1 tabs Oral QID,PRN:as needed for pain Start Date: 01/22/15 Status: Ordered Toviaz 4 mg oral tablet, extended release 1 tabs, Oral, Daily, # 30 tabs, 0 Refill(s) Start Date: 09/01/14 Status: Ordered Ventolin HFA 90 mcg/inh inhalation aerosol 2 puffs, Inhalation, QID, # 2 Each, 3 Refill(s), Pharmacy: [facility] # [id number], 2 puffs Inhalation QID Start Date: 01/01/15 [...] 11:10 AM) Immunizations Vaccine Date Refusal Reason influenza virus vaccine, inactivated 02/07/14 influenza virus vaccine, live 01/22/13 pneumococcal 23-polyvalent vaccine 01/16/04 tetanus-diphth toxoids (Td) adult/adol 02/18/08 tetanus-diphth toxoids (Td) adult/adol 08/16/96 tetanus-diphth toxoids (Td) adult/adol 08/16/96 Procedures Procedure Date Related Diagnosis Body Site Right L2-3 Transforminal 12/12/13 Left L4-5 Transforaminal 05/19/11 cystoscopy1 11/05/10 Cholecystectomy;2 2008 Colonoscopy3 07/04/07 Esophagogastroduodenoscopy4 07/04/07 colonoscopies 1999 BSO - Total abdominal hysterectomy and 1972 bilateral salpingo-oophorectomy hysterectomy5 1968 tonsilectomy 1956 anterior lumbar fusion 2005 left knee menisectomy skin graft left buttock 11st coaptite suburethral bulking implant 2laparoscopic Dr. Collins 3with polypectomy showing 2 polps of hyperplastic origin. Plan repeat in 10 yrs (06/25/2017) 4Showing fundic gland polyp 5vaginal Social History Social History Type Response Smoking Status Current every day smoker; Type: Cigarettes; Tobacco use per day: 1 Pack; Number of years: 40 Assessment and Plan No data available for this section
--- OUTSIDE RECORDS SUMMARY | 2016-08-11 06:40 | XMS REPORT | Continuity of Care Document ---
Author Author Reed Grant MD Organization [facility] Ambulatory Address [address] [place] [address] Phone Care Team Providers Care Lapidary Apprentice Name Role Phone Reed Grant PP Unavailable Payers Payer name Insurance type Covered republican ID Authorization(s) Unknown Problems Condition Effective Dates (start - stop) Clinical Status Fibrocystic breast disease - *Chronic Macular degeneration - *Chronic Candidiasis of vulva and vagina - *Acute Abdominal pain, unspecified site - *Acute Other and unspecified hyperlipidemia - *Chronic Benign neoplasm of other specified sites of skin - Skin lesion - *Symptomatic COPD exacerbation - *Acute Bronchitis - *Chronic Radiculitis, Thoracic or Lumbar - *Chronic Benign pigmented nevus - *Chronic Abdominal Pain - *Chronic Suture check - *Routine Deafness - *Acute Cerumen impaction - *Chronic Vaginitis - *Acute Backache - *Chronic Abdominal Pain - *Chronic Emphysema - *Chronic Allergic rhinitis - *Acute Hypothyroidism - *Fair Control Depression - *Fair Control Insect bite - *Acute Bite of nonvenomous arthropod - *Acute Eczema - *Acute Degeneration of lumbar or lumbosacral intervertebral disc - * Chronic Hypothyroidism - *Chronic Depression - *Chronic Benign mole - *Acute STRAINING ON URINATION - *Chronic OTH SYMPTM URINARY SYSTM - *Chronic Chronic interstitial cystitis - *Chronic 311 - DEPRESSIVE DISORDER NEC - ALLERGIC RHINITIS NOS - ASTHMA NOS W (AC) EXAC - PEPTIC ULCER NOS - TRIGONITIS - URIN TRACT INFECTION NOS - INTRINSC SPHNCTR DFICNCY - VAGINITIS NOS - LUMB/LUMBOSAC DISC DEGEN - LUMBOSACRAL NEURITIS NOS - MALAISE AND FATIGUE NEC - DYSURIA - Bronchitis, Acute - *Acute Sinusitis, Acute - *Acute Bladder pain - *Acute Anxiety - *Chronic ASTHMA, UNSPECIFIED TYPE, WITH (ACUTE) EXACERBATION - *Chronic Depression - *Chronic Lung nodule - *Acute COPD (chronic obstructive pulmonary disease) - *Chronic NEED FOR PROPHYLACTIC VACCINATION AND INOCULATION AGAINST TETANUS-DIPHTHERIA [ TD] (DT) - Skin tear - *Acute Anxiety - *Poor control Benign neoplasm of other specified sites of skin - Improved Skin tag - *Symptomatic Family History Family Member Diagnosis Age At Onset Status Family h/o (Unknown) no family hx of anesthetic pro Yes Social History Social History Element Description Quantity alcohol Allergies, Adverse Reactions, Alerts Substance Reaction Severity Status CODEINE Unknown BISMUTH SUBSALICYLATE Unknown MEPERIDINE HCL Unknown PRESERVATIVE FREE Unknown Medications Medication Instructions Dosage Effective Dates (start - stop) Status Remeron 15 mg tablet take 1 tablet (15MG) by oral route every day before bedtime 15 MG - Active Vitamin C 500 mg tablet take 1 Tablet by Oral route every day 0 2013 - Active vitamin A-vitamin D3 5,000 unit-400 unit capsule daily - Active Vitamin B-6 200 mg tablet,extended release TAKE [...] Benadryl 25 mg capsule qid - Active ProAir HFA 90 mcg/actuation aerosol [...] Measure Units Reference Range Abnormal Flag Comments Unknown Vital Signs Date / Time: Height Weight Pulse Rate Blood Pressure Temperature /13:40:00 65.00 in 115.00 lbs 110/70 mm[Hg] 97.2 F Procedures Procedure Date Unknown Encounters Encounter Location Date Patient Visit [facility] Patient Visit [facility] Patient Visit [facility] Patient Visit [facility] Patient Visit [facility] Advance Directives Directive Effective Date Unknown
--- OUTSIDE RECORDS SUMMARY | 2016-08-11 06:40 | XMS REPORT | Referral Summary ---
Author Author [facility], [facility] Organization [facility] Address Unknown Phone Unavailable Care Team Providers Care Boarding Kennel Or Cattery Operator Name Role Phone Oral Grant Primary Care Physician [phone] Encounter [facility] Date(s): 01/29/15 - 01/29/15 [facility], [address] [place] [address]- Discharge Disposition: 01-Home or Self Care Attending [...] DAY, # 13 g, 2 Refill(s), Pharmacy: [facility] #[id number] Start Date: 01/01/15 Status: Ordered levothyroxine 75 mcg (0.075 mg) oral tablet See Instructions, TAKE ONE TABLET BY MOUTH ONCE A DAY, # 30 tabs, 2 Refill(s), eRx: [facility] #[id number], TAKE ONE TABLET BY MOUTH ONCE A DAY Start Date: 09/30/14 Status: Ordered Mobic 7.5 mg oral tablet 1 tabs, Oral, BID, 0 Refill(s) Start Date: 10/09/13 Status: Ordered [place] 5 mg-325 mg oral tablet See Instructions, as needed for pain, 0.5 tabs Oral q6-8hr prn pain, # 10 tabs, 0 Refill(s) Start Date: 12/09/14 Status: Ordered Premarin 0.625 mg/g vaginal cream with applicator See Instructions, 0.5 applicator Vaginal twice a week., # 42 g, 5 Refill(s), Pharmacy: [facility] #[id number] Start Date: 07/21/14 Status: Ordered Robaxin 500 mg oral tablet 500 mg 1 tabs, Oral, QID, as needed for pain, # 120 tabs, 0 Refill(s), Pharmacy : [facility] #[id number], 1 tabs Oral QID,PRN:as needed for pain Start Date: 01/22/15 Status: Ordered Toviaz 4 mg oral tablet, extended release 1 tabs, Oral, Daily, # 30 tabs, 0 Refill(s) Start Date: 09/01/14 Status: Ordered Ventolin HFA 90 mcg/inh inhalation aerosol 2 puffs, Inhalation, QID, # 2 Each, 3 Refill(s), Pharmacy: [facility] # [id number], 2 puffs Inhalation QID Start Date: 01/01/15 [...]
--- OUTSIDE RECORDS SUMMARY | 2016-08-11 06:40 | XMS REPORT | Summary of Care ---
Author Author Brandon Brice M.D. Unknown Address [address] [place] [address] [place] [address] Phone Unavailable Care Team Providers Care Cattle Trader Name Role Phone Mykel Benavides, Lewis Unavailable Unavailable Brandon Brice M.D. Unavailable Unavailable Reed Grant Unavailable Unavailable [...] Active Abdominal pain (789.00, R10.9) Status: Active Kidney pain (788.0, N23) Status: Active Nocturia (788.43, R35.1) Status: Active Allergic rhinitis (477.9, J30.9) Status: Active Abdominal pain of multiple sites (789.09, R10.9) Status: Active Pancreatic cyst (577.2, K86.2) Status: Active Incomplete bladder emptying (788.21, R33.9) Status: Active Difficulty urinating (788.99, R39.198) Status: Active Medications Name Dates Details Levothyroxine [...] smoker Vital Signs Date Test Result Details 30-Mar-2016 15:21 BP Systolic 115 mm[Hg] Status: Comments: Location: ; Position: BP Diastolic 71 mm[Hg] Status: Comments: Location: ; Position: Heart Rate 83 /min Status: Comments: Location: ; Weight 106 lb Status: Body Mass Index Calculated 17.37 kg/m2 Status: Body Surface Area Calculated 1.52 m2 Status: 23-Mar-2016 15:43 BP Systolic 139 mm[Hg] Status: Comments: Location: ; Position: BP Diastolic 61 mm[Hg] Status: Comments: Location: ; Position: Heart Rate 79 /min Status: Comments: Location: ; 22-Mar-2016 10:47 Temperature 98.1 f Status: Heart Rate 90 /min Status: Comments: Location: ; Physical Findings 96 Status: Comments: O2 Saturation 16-Mar-2016 13:45 BP Systolic 121 mm[Hg] Status: BP Diastolic 66 mm[Hg] Status: Heart Rate 75 /min Status: Comments: Location: [...] M.D. Encounter Diagnosis: Problem not documented On 23-Mar-2016 15:30 Appointment; Lewis Hogue M.D. Encounter Diagnosis: Problem not documented On 22-Mar-2016 10:45 Appointment; Brandon Brice M.D. Encounter Diagnosis: Problem not documented On 16-Mar-2016 13:45 Appointment; Lewis Hogue M.D. Encounter Diagnosis: Problem not documented On 23-Feb-2016 11:00
--- OUTSIDE RECORDS SUMMARY | 2016-08-11 06:40 | XMS REPORT | Referral Summary ---
Author Author [facility], [facility] Organization [facility] Address Unknown Phone Unavailable Care Team Providers Care Application Packager Name Role Phone Oral Grant Primary Care Physician [phone] Encounter [facility] Date(s): 12/09/14 - 12/09/14 [facility], [address] [place] [address]- Discharge Diagnosis: Chronic low back pain Discharge Diagnosis: Lumbar postlaminectomy syndrome Discharge Disposition: 01-Home or Self Care Attending Physician: Andressa Serna APRN Admitting Physician: Andressa Serna APRN Vital Signs Most recent to 1 oldest [Reference Range]: Temperature Tympanic 37.3 degC [36.6-38.1 degC] (12/09/14 3:03 PM) Peripheral Pulse 78 bpm Rate [60-100 bpm] (12/09/14 3:03 PM) Blood Pressure 128/70 mmHg [90-140/60-90 mmHg] (12/09/14 3:03 PM) SpO2 96 % (12/09/14 3:03 PM) Problem List Condition Effective Dates Status [...] 0 Refill(s), Pharmacy: [facility] #[id number] Start Date: 05/22/15 Status: Ordered levothyroxine 75 mcg (0.075 mg) oral tablet See Instructions, TAKE ONE TABLET BY MOUTH DAILY, # 30 tabs, 2 Refill(s), eRx: [facility] #[id number], TAKE ONE TABLET BY MOUTH DAILY Start Date: 02/16/15 Status: Ordered Lexapro 5 mg oral tablet 5 mg 1 tabs, Oral, Daily, # 30 tabs, 1 Refill(s), Pharmacy: [facility] # [id number], 1 tabs Oral Daily Start Date: 03/27/15 Status: Ordered Robaxin 500 mg oral tablet 500 mg 1 tabs, Oral, QID, as needed for pain, # 120 tabs, 0 Refill(s), Pharmacy : [facility] #[id number], 1 tabs Oral QID,PRN:as needed for pain Start Date: 01/22/15 Status: Ordered Symbicort 80 mcg-4.5 mcg/inh inhalation aerosol 2 puffs, Inhalation, BID, # 10.2 g, 3 Refill(s), Pharmacy: [facility] # [id number] Start Date: 05/21/15 Status: Ordered Ventolin HFA 90 mcg/inh inhalation aerosol 2 puffs, Inhalation, QID, # 2 Each, 3 Refill(s), [facility] # [id number], 2 puffs Inhalation QID Start Date: 01/01/15 [...]
--- OUTSIDE RECORDS SUMMARY | 2016-08-11 06:40 | XMS REPORT | Referral Summary ---
Author Author [facility] Organization [facility] Address Unknown Phone Unavailable Care Team Providers Care Plaster Helper Name Role Phone Oral Grant Primary Care Physician [phone] Encounter VC Date(s): 01/13/15 - 01/13/15 [facility] [address], [place] [address] Discharge Diagnosis: Lumbar radiculitis Discharge Diagnosis: Lumbago Discharge Diagnosis: Fusion of spine of lumbar region Discharge Disposition: 01-Home or Self Care Attending Physician: Mati Dominguez MD Admitting Physician: Mati Dominguez MD Vital Signs No data available for this section Problem List Condition Effective Dates Status Health [...] days, # 20 tabs, 0 Refill(s), Pharmacy: [facility] #[id number], 1 tabs Oral BID,x10 days Start Date: 07/24/15 Stop Date: 08/03/15 Status: Ordered cetirizine 10 mg oral tablet 10 mg 1 tabs, Oral, Daily, 0 Refill(s) Start Date: 01/13/15 Status: Ordered Cortisporin otic solution 4 drops, Ear-Right, QID, # 10 mL, 0 Refill(s), Pharmacy: [facility] # [id number] Start Date: 07/24/15 Stop Date: 08/05/15 Status: Ordered estradiol 0.1 mg/g vaginal cream 1 g, Vaginal, 3x/Wk, APPOINTMENT NEEDED PRIOR TO ADDITIONAL REFILLS., # 42 g, 0 Refill(s), Pharmacy: [facility] #[id number] Start Date: 05/22/15 Status: Ordered levothyroxine 75 mcg (0.075 mg) oral tablet See Instructions, TAKE ONE TABLET BY MOUTH DAILY, # 30 tabs, 2 Refill(s), eRx: [facility] #[id number], TAKE ONE TABLET BY MOUTH DAILY Start Date: 02/16/15 Status: Ordered Lexapro 5 mg oral tablet 5 mg 1 tabs, Oral, Daily, # 30 tabs, 1 Refill(s), Pharmacy: [facility] # [id number], 1 tabs Oral Daily Start Date: 03/27/15 Status: Ordered Robaxin 500 mg oral tablet 500 mg 1 tabs, Oral, QID, as needed for pain, # 120 tabs, 0 Refill(s), Pharmacy : [facility] #[id number], 1 tabs Oral QID,PRN:as needed for pain Start Date: 01/22/15 Status: Ordered Symbicort 80 mcg-4.5 mcg/inh inhalation aerosol 2 puffs, Inhalation, BID, # 10.2 g, 3 Refill(s), Pharmacy: [facility] # [id number] Start Date: 05/21/15 Status: Ordered Ventolin HFA 90 mcg/inh inhalation aerosol 2 puffs, Inhalation, QID, # 2 Each, 3 Refill(s), Pharmacy: [facility] # [id number], 2 puffs Inhalation QID Start Date: 01/01/15 [...] 40 Assessment and Plan Extracted from: Title: Office Visit Note Author: Mati Dominguez Date: 01/13/15 Assessment/Plan Fusion of spine of lumbar region Lumbago Lumbar radiculitis Conservative and surgical treatment options were discussed with the patient at length. She's tried physical therapy and injections would like to discuss surgical treatment optionsI think L4 5 is the most likely pain generator. We discussed that I will not be with clinic much longer. She was provided a list of additional spine surgeonsand we will attempt toexpedite an appointment. She would like to try Robaxin in place of cyclobenzaprine. She left today before getting the prescription.
--- OUTSIDE RECORDS SUMMARY | 2016-08-11 06:41 | XMS REPORT | Referral Summary ---
Author Author [facility] Organization [facility] Address Unknown Phone Unavailable Care Team Providers Care Public Stenographer Name Role Phone Oral Grant Primary Care Physician [phone] Encounter VC Date(s): 01/22/16 - 01/22/16 [facility] [address] [place] [address] Discharge Disposition: 01-Home or Self Care Attending Physician: Reed Grant MD Admitting Physician: Reed Grant MD Vital Signs Most recent to 1 oldest [Reference Range]: Blood Pressure 104/68 mmHg [90-140/60-90 mmHg] (01/22/16 1:52 PM) Problem List Condition Effective Dates Status [...] FOR APPOINTMENT, # 42.5 unknown unit, eRx: [facility] #[id number], APPLY 1 GM VAGINALLY 3 TIMES WEEKLY -- MUST CALL MD FOR APPOINTMENT Start Date: 01/19/16 Status: Ordered ferrous sulfate Oral, 0 Refill(s) Start Date: 12/30/15 Status: Ordered levothyroxine 75 mcg (0.075 mg) oral tablet See Instructions, TAKE ONE TABLET BY MOUTH DAILY, # 30 tabs, eRx: [facility] #[id number], TAKE ONE TABLET BY MOUTH DAILY Start Date: 01/07/16 Status: Ordered Lexapro 5 mg oral tablet 5 mg 1 tabs, Oral, Daily, # 30 tabs, 1 Refill(s), Pharmacy: [facility] # [id number], 1 tabs Oral Daily Start Date: 03/27/15 Status: Ordered Robaxin 500 mg oral tablet 500 mg 1 tabs, Oral, QID, as needed for pain, # 120 tabs, 0 Refill(s), Pharmacy : [facility] #[id number], 1 tabs Oral QID,PRN:as needed for pain Start Date: 01/22/15 Status: Ordered Symbicort 80 mcg-4.5 mcg/inh inhalation aerosol See Instructions, INHALE TWO PUFFS BY MOUTH TWICE A DAY, # 10.2 unknown unit, 2 Refill(s), eRx: [facility] #[id number], INHALE TWO PUFFS BY MOUTH TWICE A DAY Start Date: 11/06/15 Status: Ordered Ventolin HFA 90 mcg/inh inhalation aerosol 2 puffs, Inhalation, QID, as needed for wheezing, # 1 Each, 3 Refill(s), Pharmacy: [facility] #[id number], 2 puffs Inhalation QID,PRN:as needed for wheezing Start Date: 11/02/15 Status: Ordered Vitamin B-12 5,000 mcg, 0 [...] hysterectomy5 1967 tonsilectomy 1956 anterior lumbar fusion 2005 Cataract [...]
--- OUTSIDE RECORDS SUMMARY | 2016-08-11 06:41 | XMS REPORT | Referral Summary ---
Author Organization Unknown Address Unknown Phone Unavailable Care Team Providers Care Roll Up Operator Name Role Phone Oral Grant Primary Care Physician [phone] Encounter VC Date(s): 07/21/14 - 07/21/14 [facility], [address] [place] [address]- Discharge Diagnosis: Dysuria Discharge Diagnosis: Abdominal pain Discharge Disposition: Home or Self Care Attending Physician: Reed Grant MD Admitting Physician: Reed Grant MD Vital Signs Most recent to 1 oldest [Reference Range]: Blood Pressure 108/68 mmHg [90-140/60-90 mmHg] (07/21/14 9:17 AM) Problem List Condition Effective Dates Status Health Status Informant Hay fever(Confirmed) Active allergy Resolved rhinitis(Confirmed) anxiety(Confirmed) Resolved Arthritis(Confirmed) Resolved asthma/emphyzema(Con Resolved firmed) bipolar(Confirmed) Resolved Chronic low back Active pain(Confirmed) COPD (chronic Resolved obstructive pulmonary disease)(Confirmed) Fusion of spine of Active lumbar region(Confirmed) Disc degeneration, Active lumbosacral(Confirme d) Depression(Confirmed Resolved ) dysuria(Confirmed) Resolved Emphysema(Confirmed) Resolved GERD Resolved (gastroesophageal reflux disease)(Confirmed) Hypothyroidism(Confi Resolved rmed) 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) Colitis(Confirmed) Active Lumbago(Confirmed) Active Lumbar Active post-laminectomy syndrome(Confirmed) Other malaise and Active fatigue(Confirmed) Melanoma(Confirmed) Resolved Lumbar Active radiculitis(Confirme d) Lumbar disc Active herniation(Confirmed ) reflux(Confirmed) Resolved right eye retinal Resolved tear(Confirmed) stress Resolved incontinence(Confirm ed) Thoracic and Active lumbosacral neuritis(Confirmed) Trigonitis(Confirmed Active ) ulcers(Confirmed) Resolved UTI (urinary tract Active infection)(Confirmed ) Vaginitis(Confirmed) Active Allergies, Adverse Reactions, Alerts Substance Reaction Severity Status Bactrim DS Active bismuth subsalicylate Active codeine Active meperidine Active Medications Caltrate 600 + D 1 tabs, Oral, BID, 0 Refill(s) Start Date: 10/09/13 Status: Ordered cyclobenzaprine 10 mg oral tablet 1 tabs, Oral, TID, as needed for spasm, # 6 tabs, 0 Refill(s), Pharmacy: [facility] #[id number], 1 tabs Oral TID,PRN:as needed for spasm Start Date: 12/16/13 Status: Ordered Dulera 200 mcg-5 mcg/inh inhalation aerosol 2 puffs, Inhalation, BID, Patient needs appointment prior to refill, # 13 g, 0 Refill(s), Pharmacy: [facility] #[id number] Special Instructions: Patient needs appointment prior to refill Start Date: 07/14/14 Status: Ordered levothyroxine 75 mcg (0.075 mg) oral tablet See Instructions, TAKE ONE TABLET BY MOUTH ONCE A DAY, # 30 tabs, eRx: [facility] #[id number], TAKE ONE TABLET BY MOUTH ONCE A DAY Special Instructions: TAKE ONE TABLET BY MOUTH ONCE A DAY Start Date: 06/16/14 Status: Ordered Mobic 7.5 mg oral tablet 1 tabs, Oral, BID, 0 Refill(s) Start Date: 10/09/13 Status: Ordered Premarin 0.625 mg/g vaginal cream with applicator See Instructions, 0.5 applicator Vaginal twice a week., # 42 g, 5 Refill(s), Pharmacy: [facility] #[id number] Special Instructions: 0.5 applicator Vaginal twice a week. Start Date: 07/21/14 Status: Ordered tamsulosin 0.4 mg oral capsule 1 caps, Oral, Daily, # 90 caps, 2 Refill(s), Pharmacy: [facility] #[id number] , 1 caps Oral Daily Start Date: 01/28/14 Status: Ordered Vitamin B-12 5,000 mcg, 0 Refill(s) Start Date: 10/09/13 Status: Ordered Vitamin B6 100 mg oral tablet 2 tabs, Oral, Daily, 0 Refill(s) Start Date: 10/09/13 Status: Ordered Vitamin C 500 mg, Oral, 0 Refill(s) Start Date: 10/09/13 Status: Ordered Results Urinalysis Most recent to 1 oldest [Reference Range]: UA Color Yellow (07/21/14 9:30 AM) UA Appear Clear (07/21/14 9:30 AM) UA pH [5.0-8.0] 6.5 (07/21/14 9:30 AM) UA Leuk Est Negative [Negative] (07/21/14 9:30 AM) UA Nitrite Negative [Negative] (07/21/14 9:30 AM) UA Protein Negative [Negative] (07/21/14 9:30 AM) UA Glucose Negative [Negative] (07/21/14 9:30 AM) UA Ketones Negative [Negative] (07/21/14 9:30 AM) UA Urobilinogen 0.2 mg/dL (07/21/14 9:30 AM) UA Bili [Negative] Negative (07/21/14 9:30 AM) UA Blood Negative (07/21/14 9:30 AM) UA Spec Grav 1.010 [1.003-1.030] (07/21/14 9:30 AM) Type Clean Catch (07/21/14 9:30 AM) Immunizations Vaccine Date Refusal Reason influenza virus vaccine, inactivated 02/07/14 influenza virus vaccine, live 01/22/13 pneumococcal 23-polyvalent vaccine 01/16/04 tetanus-diphth toxoids (Td) adult/adol 02/18/08 tetanus-diphth toxoids (Td) adult/adol 08/16/96 tetanus-diphth toxoids (Td) adult/adol 08/16/96 Procedures Procedure Date Related Diagnosis Body Site Right L2-3 Transforminal 12/12/13 Left L4-5 Transforaminal 05/19/11 cystoscopy1 11/05/10 Cholecystectomy;2 2009 Colonoscopy3 07/04/07 Esophagogastroduodenoscopy4 07/04/07 colonoscopies 1999 BSO - Total abdominal hysterectomy and 1972 bilateral salpingo-oophorectomy hysterectomy5 1968 tonsilectomy 195 anterior lumbar fusion 2005 left knee menisectomy [...] Author: Reed Grant MD Date: Family Medicine Abdominal Pain Abdominal pain can be caused by many things. Your caregiver decides the seriousness of your pain by an examination and possibly blood tests and X-rays. Many cases can be observed and treated at home. Most abdominal pain is not caused by a disease and will probably improve without treatment. However, in many cases, more time must pass before a clear cause of the pain can be found. Before that point, it may not be known if you need more testing, or if hospitalization or surgery is needed. HOME CARE INSTRUCTIONS Do not take laxatives unless directed by your caregiver. Take pain medicine only as directed by your caregiver. Only take [id number] or prescription medicines for pain, discomfort, or fever as directed by your caregiver. Try a clear liquid diet (broth, tea, or water) for as long as directed by your caregiver. Slowly move to a bland diet as tolerated. SEEK IMMEDIATE MEDICAL CARE IF: The pain does not go away. You have a fever. You keep throwing up (vomiting ). The pain is felt only in portions of the abdomen. Pain in the right side could possibly be appendicitis. In an adult, pain in the left lower portion of the abdomen could be colitis or diverticulitis. You pass bloody or black tarry stools. MAKE SURE YOU: Understand these instructions. Will watch your condition. Will get help right away if you are not doing well or get worse. Document Released: 02/01/2006 Document Revised: 07/16/2012 Document Reviewed: [facility] Patient Information 2014 [employer]. Dysuria Dysuria is the medical term for pain with urination. There are many causes for dysuria, but urinary tract infection is the most common. If a urinalysis was performed it can show that there is a urinary tract infection. A urine culture confirms that you or your child is sick. You will need to follow up with a healthcare provider because: If a urine culture was done you will need to know the culture results and treatment recommendations. If the urine culture was positive, you or your child will need to be put on antibiotics or know if the antibiotics prescribed are the right antibiotics for your urinary tract infection. If the urine culture is negative (no urinary tract infection), then other causes may need to be explored or antibiotics need to be stopped. Today laboratory work may have been done and there does not seem to be an infection. If cultures were done they will take at least 24 to 48 hours to be completed. Today x-rays may have been taken and they read as normal. No cause can be found for the problems. The x-rays may be re-read by a radiologist and you will be contacted if additional findings are made. You or your child may have been put on medications to help with this problem until you can see your primary caregiver. If the problems get better, see your primary caregiver if the problems return. If you were given antibiotics ( medications which kill germs), take all of the mediations as directed for the full course of treatment. If laboratory work was done, you need to find the results. Leave a telephone number where you can be reached. If this is not possible, make sure you find out how you are to get test results. HOME CARE INSTRUCTIONS Drink lots of fluids. For adults, drink eight, 8 ounce glasses of clear juice or water a day. For children, replace fluids as suggested by your caregiver. Empty the bladder often. Avoid holding urine for long periods of time. After a bowel movement, women should cleanse front to back, using each tissue only once. Empty your bladder before and after sexual intercourse. Take all the medicine given to you until it is gone. You may feel better in a few days, but TAKE ALL MEDICINE. Avoid caffeine, tea, alcohol and carbonated beverages, because they tend to irritate the bladder. In men, alcohol may irritate the prostate. Only take euas-pfv-vkcffhv or prescription medicines for pain, discomfort, or fever as directed by your caregiver. If your caregiver has given you a follow-up appointment, it is very important to keep that appointment. Not keeping the appointment could result in a chronic or permanent injury, pain, and disability. If there is any problem keeping the appointment, you must call back to this facility for assistance. SEEK IMMEDIATE MEDICAL CARE IF: Back pain develops. A fever develops. There is nausea (feeling sick to your stomach) or vomiting (throwing up) . Problems are no better with medications or are getting worse. MAKE SURE YOU: Understand these instructions. Will watch your condition. Will get help right away if you are not doing well or get worse. Document Released: 01/20/2005 Document Revised: 07/16/2012 Document Reviewed: [facility] Patient Information 2014 [employer]. Pelvic Pain, Female Female pelvic pain can be caused by many different things and start from a variety of places. Pelvic pain refers to pain that is located in the lower half of the abdomen and between your hips. The pain may occur over a short period of time (acute ) or may be reoccurring (chronic ). The cause of pelvic pain may be related to disorders affecting the female reproductive organs (gynecologic ), but it may also be related to the bladder, kidney stones, an intestinal complication, or muscle or skeletal problems. Getting help right away for pelvic pain is important, especially if there has been severe, sharp, or a sudden onset of unusual pain. It is also important to get help right away because some types of pelvic pain can be life threatening. CAUSES Below are only some of the causes of pelvic pain. The causes of pelvic pain can be in one of several categories. Gynecologic. Pelvic inflammatory disease. Sexually transmitted infection. Ovarian cyst or a twisted ovarian ligament (ovarian torsion ). Uterine lining that grows outside the uterus (endometriosis ). Fibroids, cysts, or tumors. Ovulation. . that occurs outside the uterus (ectopic ). Miscarriage. Labor. Abruption of the placenta or ruptured uterus. Infection. Uterine infection (endometritis ). Bladder infection. Diverticulitis. Miscarriage related to a uterine infection (septic ). Bladder. Inflammation of the bladder (cystitis ). Kidney stone(s). Gastrointenstinal. Constipation. Diverticulitis. Neurologic. Trauma. Feeling pelvic pain because of mental or emotional causes (psychosomatic ) . Cancers of the bowel or pelvis. EVALUATION Your caregiver will want to take a careful history of your concerns. This includes recent changes in your health, a careful gynecologic history of your periods (menses ), and a sexual history. Obtaining your family history and medical history is also important. Your caregiver may suggest a pelvic exam. A pelvic exam will help identify the location and severity of the pain. It also helps in the evaluation of which organ system may be involved. In order to identify the cause of the pelvic pain and be properly treated, your caregiver may order tests. These tests may include: A test. Pelvic ultrasonography. An X-ray exam of the abdomen. A urinalysis or evaluation of vaginal discharge. Blood tests. HOME CARE INSTRUCTIONS Only take afhs-tbs-vaczqjh or prescription medicines for pain, discomfort, or fever as directed by your caregiver. Rest as directed by your caregiver. Eat a balanced diet. Drink enough fluids to make your urine clear or pale yellow, or as directed. Avoid sexual intercourse if it causes pain. Apply warm or cold compresses to the lower abdomen depending on which one helps the pain. Avoid stressful situations. Keep a journal of your pelvic pain. Write down when it started, where the pain is located, and if there are things that seem to be associated with the pain, such as food or your menstrual cycle. Follow up with your caregiver as directed. SEEK MEDICAL CARE IF: Your medicine does not help your pain. You have abnormal vaginal discharge. SEEK IMMEDIATE MEDICAL CARE IF: You have heavy bleeding from the vagina. Your pelvic pain increases. You feel lightheaded or faint. You have chills. You have pain with urination or blood in your urine. You have uncontrolled diarrhea or vomiting. You have a fever or persistent symptoms for more than 3 days. You have a fever and your symptoms suddenly get worse. You are being physically or sexually abused. MAKE SURE YOU: Understand these instructions. Will watch your condition. Will get help if you are not doing well or get worse. Document Released: 03/21/2005 Document Revised: 10/23/2012 Document Reviewed: [facility] Patient Information 2014 [employer]. No follow up information was provided. Extracted from: Title: Office Visit Note Author: Reed Grant MD Date: 07/21/14 Assessment/Plan Abdominal pain Refer to Urology. UA found to be normal. Ordered: Office Visit Level 3 Est 58318 Dysuria Ordered: Office Visit Level 3 Est 95645
--- OUTSIDE RECORDS SUMMARY | 2016-08-11 06:41 | XMS REPORT | Summary of Care ---
Author Author Brandon Brice M.D. Unknown Address [address] [place] [address] [place] [address] Phone Unavailable Care Team Providers Care Senior Patrol Agent Name Role Phone Lewis Hogue M.D. Unavailable Unavailable Brandon Brice M.D. Unavailable Unavailable Reed Grant Unavailable Unavailable Unavailable Unavailable Functional Status Name Dates Details Functional status health issues are not documented Status: Name Dates Details Cognitive status health issues are not documented Status: Problems Name Dates Details Allergic rhinitis (477.9, J30.9) Status: Active Hypertension (401.9, I10) Status: Active Anxiety (300.00, [...] smoker Vital Signs Date Test Result Details 16-Mar-2016 13:45 BP Systolic 121 mm[Hg] Status: [...] Location: ; Position: Temperature 97.9 f Status: Heart Rate 79 /min Status: Comments: Location: ; Height 65.5 in Status: Weight 106 lb Status: Body Mass Index Calculated 17.37 kg/m2 Status: Body Surface Area Calculated 1.52 m2 Status: Results Date Description Value Details Results not documented Plan of Care Name Dates Details Planned Observations Planned Goals not documented Planned Encounters Appointment; Provider: Brandon Brice M.D. On 23-Mar-2016 15:30 Appointment; Provider: Lewis Hogue M.D. On 22-Mar-2016 10:45 Instructions Name Dates Details Instructions not documented Encounters Appointment; Lewis Hogue M.D. Encounter Diagnosis: Problem not documented On 23-Feb-2016 11:00
--- OUTSIDE RECORDS SUMMARY | 2016-08-11 06:41 | XMS REPORT | Referral Summary ---
Author Author [facility] Organization [facility] Address Unknown Phone Unavailable Care Team Providers Care Technical Sales Support Manager Name Role Phone Oral Grant Primary Care Physician [phone] Encounter [facility] Date(s): 03/29/16 - 03/29/16 [facility] [address] [place] [address] Discharge Diagnosis: Abdominal pain, generalized Discharge Diagnosis: Intermittent diarrhea Discharge Diagnosis: Cystic mass of pancreas Discharge Disposition: 01-Home or Self Care Attending Physician: Josefina Driver PA-C Admitting Physician: Josefina Driver PA-C Vital Signs Most recent to 1 oldest [Reference Range]: Blood Pressure 94/64 mmHg [90-140/60-90 mmHg] (03/29/16 4:09 PM) Problem List Condition Effective Dates Status [...] subsalicylate Active codeine Active meperidine Active Medications Breo Ellipta 1 puffs, Inhalation, Daily, 0 Refill(s) Start Date: 03/29/16 Status: Ordered cetirizine 10 mg oral tablet [...] FOR APPOINTMENT, # 42.5 unknown unit, eRx: [facility] #[id number], APPLY 1 GM VAGINALLY 3 TIMES WEEKLY -- MUST CALL MD FOR APPOINTMENT Start Date: 01/19/16 Status: Ordered ferrous sulfate Oral, 0 Refill(s) Start Date: 12/30/15 Status: Ordered levothyroxine 75 mcg (0.075 mg) oral tablet See Instructions, TAKE ONE TABLET BY MOUTH DAILY, # 30 tabs, eRx: [facility] #[id number], TAKE ONE TABLET BY MOUTH DAILY Start Date: 03/09/16 Status: Ordered Lexapro 5 mg oral tablet 5 mg 1 tabs, Oral, Daily, # 30 tabs, 1 Refill(s), Pharmacy: [facility] # [id number], 1 tabs Oral Daily Start Date: 03/27/15 Status: Ordered Robaxin 500 mg oral tablet 500 mg 1 tabs, Oral, QID, as needed for pain, # 120 tabs, 0 Refill(s), Pharmacy : [facility] #[id number], 1 tabs Oral QID,PRN:as needed for pain Start Date: 01/22/15 Status: Ordered Ventolin HFA 90 mcg/inh inhalation aerosol See Instructions, INHALE TWO PUFFS BY MOUTH FOUR TIMES A DAY NEEDED FOR WHEEZING, # 18 unknown unit, 2 Refill(s), eRx: [facility] #[id number], INHALE TWO PUFFS BY MOUTH FOUR TIMES [...] and Plan Extracted from: Title: Office Visit Note- Author: Josefina Drivre PA-C Date: 03/29/16 Pancreatic cyst, abd pain Assessment/Plan Abdominal pain, generalized D/w pt that her duodenum is not at the RLQ where she is having pain. D/w her that she may benefit from a PPI, but she wants a scope done. Was done last in 2007 that showed a polyp, but not any significant gastritis from what I can find. Consult with Dr. Thornton. Ordered: Office Visit Level 4 Est 47353 Cystic mass of pancreas I do not think her pain is d/t thiscystic structure. Ithas been stablecompared to CT's from 2007 and 2013. I do not think she needs further work up for this at this time, but Dr. Grant' wanted her tosee Dr. Thornton. Ordered: Office Visit Level 4 Est 65980 Intermittent diarrhea I think the pt has IBS-D. Recommended starting on medication, however, pt wants tosee Dr. Thornton and wants a scope. D/w her that we can set her up for a consult, but is not due for another scope until 2018. Will see what would like to do with pt. Ordered: Office Visit Level 4 Est 90320
--- OUTSIDE RECORDS SUMMARY | 2016-08-11 06:41 | XMS REPORT | Referral Summary ---
Author Author [facility], [facility] Organization [facility] Address Unknown Phone Unavailable Care Team Providers Care Mold Capper Helper Name Role Phone Oral Grant Primary Care Physician [phone] Encounter [facility] Date(s): 11/02/15 - 11/02/15 [facility], [address] [place] [address]- Discharge Disposition: 01-Home or Self Care Attending Physician: Reed Grant MD Admitting Physician: Reed Grant MD Vital Signs Most recent to 1 oldest [Reference Range]: Blood Pressure 106/58 mmHg [90-140/60-90 mmHg] (11/02/15 1:42 PM) Problem List Condition Effective Dates Status [...] 0 Refill(s) Start Date: 11/02/15 Status: Ordered estradiol 0.1 mg/g vaginal cream 1 g, Vaginal, 3x/Wk, APPOINTMENT NEEDED PRIOR TO ADDITIONAL REFILLS., # 42 g, 0 Refill(s), Pharmacy: [facility] #[id number] Start Date: 10/09/15 Status: Ordered levothyroxine 75 mcg (0.075 mg) oral tablet See Instructions, TAKE ONE TABLET BY MOUTH DAILY, # 30 tabs, 1 Refill(s), eRx: [facility] #[id number], TAKE ONE TABLET BY MOUTH DAILY Start Date: 08/17/15 Status: Ordered Lexapro 5 mg oral tablet 5 mg 1 tabs, Oral, Daily, # 30 tabs, 1 Refill(s), Pharmacy: [facility] # [id number], 1 tabs Oral Daily Start Date: 03/27/15 Status: Ordered Robaxin 500 mg oral tablet 500 mg 1 tabs, Oral, QID, as needed for pain, # 120 tabs, 0 Refill(s), Pharmacy : [facility] #[id number], 1 tabs Oral QID,PRN:as needed for pain Start Date: 01/22/15 Status: Ordered Symbicort 80 mcg-4.5 mcg/inh inhalation aerosol 2 puffs, Inhalation, BID, # 10.2 g, 3 Refill(s), Pharmacy: [facility] # [id number] Start Date: 05/21/15 Status: Ordered Ventolin HFA 90 mcg/inh inhalation aerosol 2 puffs, Inhalation, QID, as needed for wheezing, # 1 Each, 3 Refill(s), Pharmacy: [facility] #[id number], 2 puffs Inhalation QID,PRN:as needed for wheezing Start Date: 11/02/15 Status: Ordered Vitamin B-12 5,000 mcg, 0 Refill(s) Start Date: 10/09/13 Status: Ordered Vitamin B6 100 mg oral tablet 2 tabs, Oral, Daily, 0 Refill(s) Start Date: 10/09/13 Status: Ordered Vitamin C 500 mg, Oral, 0 Refill(s) Start Date: 10/09/13 Status: Ordered Results Chemistry Most recent to 1 oldest [Reference Range]: Sodium Lvl [135-144 141 mEq/L mEq/L] (11/02/15 2:45 PM) Potassium Lvl 4.4 mEq/L [3.5-5.2 mEq/L] (11/02/15 2:45 PM) Chloride [99-111 108 mEq/L mEq/L] (11/02/15 2:45 PM) CO2 [22-31 mEq/L] 27 mEq/L (11/02/15 2:45 PM) AGAP [3-20] 6 (11/02/15 2:45 PM) BUN [10-20 mg/dL] 16 mg/dL (11/02/15 2:45 PM) Glucose Lvl [70-99 96 mg/dL mg/dL] (11/02/15 2:45 PM) Creatinine Lvl 0.68 mg/dL [0.57-1.11 mg/dL] (11/02/15 2:45 PM) eGFR [>60 mL/min] >60 mL/min 1 (11/02/15 2:45 PM) Calcium Lvl 9.3 mg/dL [8.9-10.5 mg/dL] (11/02/15 2:45 PM) TSH [0.35-4.94] 4.60 (11/02/15 2:45 PM) 1Result Comment: Multiply eGFR results by 1.21 for race. Urinalysis Most recent to 1 oldest [Reference Range]: UA Color Yellow (11/02/15 2:52 PM) UA Appear Cloudy *ABN* (11/02/15 2:52 PM) UA pH [5.0-8.0] 6.0 (11/02/15 2:52 PM) UA Leuk Est Negative [Negative] (11/02/15 2:52 PM) UA Nitrite Negative [Negative] (11/02/15 2:52 PM) UA Protein Negative [Negative] (11/02/15 2:52 PM) UA Glucose Negative [Negative] (11/02/15 2:52 PM) UA Ketones Negative [Negative] (11/02/15 2:52 PM) UA Urobilinogen 0.2 mg/dL [<1.0 mg/dL] (11/02/15 2:52 PM) UA Bili [Negative] Negative (11/02/15 2:52 PM) UA Blood [Negative] Negative (11/02/15 2:52 PM) UA Spec Grav 1.022 [1.003-1.030] (11/02/15 2:52 PM) Type Clean Catch (11/02/15 2:52 PM) Immunizations Vaccine Date Refusal Reason tetanus/diphth/pertuss (Tdap) [...]
--- OUTSIDE RECORDS SUMMARY | 2016-08-11 06:41 | XMS REPORT | Continuity of Care Document ---
Author Author Reed Grant MD Organization [facility] Address [address] [place] [address] Phone Care Team Providers Care Card Filer Name Role Phone Reed Grant PP Unavailable Payers Payer name Insurance type Covered alliance party ID Authorization(s) Unknown Problems Condition Effective Dates (start - stop) Clinical Status Radiculitis, Thoracic or Lumbar - *Chronic Candidiasis of vulva and vagina - *Acute Abdominal pain, unspecified site - *Acute Other and unspecified hyperlipidemia - *Chronic Benign neoplasm of other specified sites of skin - Skin lesion - *Symptomatic COPD exacerbation - *Acute Bronchitis - *Chronic Fibrocystic breast disease - *Chronic Macular degeneration - *Chronic Benign pigmented nevus - *Chronic [...] or lumbosacral intervertebral disc - * Chronic Chronic back pain - *Chronic Other Chronic Pain - *Chronic Hypothyroidism - *Chronic Depression - *Chronic Benign [...] Dosage Effective Dates (start - stop) Status Mobic 7.5 mg tablet take 1 tablet (7.5MG) by oral route 2 times every day 7.5 MG - Active Vitamin B-6 200 mg tablet,extended [...] hours as needed 10 MG - Active Immunizations Vaccine Date Status [...] Height Weight Pulse Rate Blood Pressure Temperature /08:02:00 65.00 in 114.00 lbs 92/60 mm[Hg] 98.1 F Procedures Procedure Date Unknown Encounters Encounter Location Date Patient Visit [facility] Patient Visit [facility] Patient Visit [facility] Patient Visit [facility] Patient [facility] Patient Visit [facility] New Patient Visit [facility] New Patient Visit [facility] New Patient Visit [facility] New Patient Visit [facility] New Patient Visit [facility] New Patient Visit [facility] Patient [facility] Patient Visit [facility] Advance Directives Directive Effective Date Unknown
--- OUTSIDE RECORDS SUMMARY | 2016-08-11 06:41 | XMS REPORT | Referral Summary ---
Author Author [facility], [facility] Organization [facility] Address Unknown Phone Unavailable Care Team Providers Care Drafter Construction Name Role Phone Oral Grant Primary Care Physician [phone] Encounter [facility] Date(s): 06/05/15 - 06/05/15 [facility], [address] [place] [address]- Discharge Diagnosis: Disc degeneration, lumbosacral Discharge Disposition: 01-Home or Self Care Attending Physician: Reed Grant MD Admitting Physician: Reed Grant MD Vital Signs Most recent to 1 oldest [Reference Range]: Peripheral Pulse 88 bpm Rate [60-100 bpm] (06/05/15 1:50 PM) Blood Pressure 130/76 mmHg [90-140/60-90 mmHg] (06/05/15 1:50 PM) SpO2 96 % (06/05/15 1:50 PM) Problem List Condition Effective Dates Status [...] REFILLS., # 42 g, 0 Refill(s), Pharmacy: [facility] #[id number] Start Date: 05/22/15 Status: Ordered levothyroxine 75 mcg (0.075 mg) oral tablet See Instructions, TAKE ONE TABLET BY MOUTH DAILY, # 30 tabs, 2 Refill(s), eRx: [facility] #[id number], TAKE ONE TABLET BY MOUTH DAILY Start Date: 02/16/15 Status: Ordered Lexapro 5 mg oral tablet 5 mg 1 tabs, Oral, Daily, # 30 tabs, 1 Refill(s), Pharmacy: [facility] # [id number], 1 tabs Oral Daily Start Date: 03/27/15 Status: Ordered Robaxin 500 mg oral tablet 500 mg 1 tabs, Oral, QID, as needed for pain, # 120 tabs, 0 Refill(s), Pharmacy : [facility] #[id number], 1 tabs Oral QID,PRN:as needed for pain Start Date: 01/22/15 Status: Ordered Symbicort 80 mcg-4.5 mcg/inh inhalation aerosol 2 puffs, Inhalation, BID, # 10.2 g, 3 Refill(s), Pharmacy: [facility] # [id number] Start Date: 05/21/15 Status: Ordered Ventolin HFA 90 mcg/inh inhalation aerosol 2 puffs, Inhalation, QID, # 2 Each, 3 Refill(s), Pharmacy: [facility] # [id number], 2 puffs Inhalation QID Start Date: 01/01/15 Status: Ordered Vitamin B-12 5,000 mcg, 0 Refill(s) Start Date: 10/09/13 Status: Ordered Vitamin B6 100 mg oral tablet 2 tabs, Oral, Daily, 0 Refill(s) Start Date: 10/09/13 Status: Ordered Vitamin C 500 mg, Oral, 0 Refill(s) Start Date: 10/09/13 Status: Ordered Results Hematology Most recent to 1 oldest [Reference Range]: WBC [4.8-10.8 7.0 10*3/uL 10*3/uL] (06/05/15 2:41 PM) RBC [4.00-5.20] 4.70 (06/05/15 2:41 PM) Hgb [12.0-16.0 14.5 gm/dL gm/dL] (06/05/15 2:41 PM) Hct [37.0-47.0 %] 41.9 % (06/05/15 2:41 PM) MCV [82.0-99.0 fL] 89.1 fL (06/05/15 2:41 PM) MCH [27.0-32.0 pg] 30.9 pg (06/05/15 2:41 PM) MCHC [32.0-36.0 34.6 gm/dL gm/dL] (06/05/15 2:41 PM) RDW [11.5-14.5 %] 12.7 % (06/05/15 2:41 PM) Platelet [150-400 309 10*3/uL 10*3/uL] (06/05/15 2:41 PM) MPV [8.8-14.8 fL] 9.9 fL (06/05/15 2:41 PM) Sed Rate [0-23] 8 (06/05/15 2:41 PM) Chemistry Most recent to 1 oldest [Reference Range]: Sodium Lvl [135-144 136 mEq/L mEq/L] (06/05/15 2:41 PM) Potassium Lvl 4.4 mEq/L [3.5-5.2 mEq/L] (06/05/15 2:41 PM) Chloride [99-111 103 mEq/L mEq/L] (06/05/15 2:41 PM) CO2 [22-31 mEq/L] 21 mEq/L *LOW* (06/05/15 2:41 PM) AGAP [3-20] 12 (06/05/15 2:41 PM) BUN [10-20 mg/dL] 16 mg/dL (06/05/15 2:41 PM) Glucose Lvl [70-99 83 mg/dL mg/dL] (06/05/15 2:41 PM) Creatinine Lvl 0.68 mg/dL [0.57-1.11 mg/dL] (06/05/15 2:41 PM) eGFR [>60 mL/min] >60 mL/min 1 (06/05/15 2:41 PM) Calcium Lvl 9.7 mg/dL [8.9-10.5 mg/dL] (06/05/15 2:41 PM) Albumin Lvl [3.4-4.8 4.4 gm/dL gm/dL] (06/05/15 2:41 PM) Total Protein 6.8 gm/dL [6.2-8.1 gm/dL] (06/05/15 2:41 PM) Globulin [1.8-4.0 2.4 gm/dL gm/dL] (06/05/15 2:41 PM) ALT [0-55 U/L] 18 U/L (06/05/15 2:41 PM) AST [5-34 U/L] 22 U/L (06/05/15 2:41 PM) Alk Phos [40-150 53 U/L U/L] (06/05/15 2:41 PM) Bili Total [0.2-1.2 0.4 mg/dL mg/dL] (06/05/15 2:41 PM) Chol [0-199 mg/dL] 249 mg/dL *HI* (06/05/15 2:41 PM) Trig [0-149 mg/dL] 65 mg/dL (06/05/15 2:41 PM) HDL [40-84 mg/dL] 82 mg/dL (06/05/15 2:41 PM) LDL [0-130 mg/dL] 154 mg/dL *HI* (06/05/15 2:41 PM) VLDL Cholesterol 13 mg/dL [0-28 mg/dL] (06/05/15 2:41 PM) Cardiac Risk 3.0 [0.0-5.0] (06/05/15 2:41 PM) 1Result Comment: Multiply eGFR results by 1.21 for race. Immunizations Vaccine Date Refusal Reason influenza virus [...] Patient Education Author: Reed Grant MD Date: Cardiovascular Dyslipidemia Dyslipidemia is an imbalance of the lipids in your blood. Lipids are waxy, fat- like proteins that your body needs in small amounts. Dyslipidemia often involves the lipids cholesterol or triglycerides. Common forms of dyslipidemia are: High levels of bad cholesterol (LDL cholesterol). LDL cholesterol is the type of cholesterol that causes heart disease. Low levels of good cholesterol (HDL cholesterol). HDL cholesterol is the type of cholesterol that helps protect against heart disease. High levels of triglycerides. Triglycerides are a fatty substance in the blood linked to a buildup of plaque on your arteries. RISK FACTORS Increased age. Having a family history of high cholesterol. Certain medicines, including control pills, diuretics, beta-blockers , and some medicines for depression. Smoking. Eating a high-fat diet. Being overweight. Medical conditions such as diabetes, polycystic ovary syndrome, , kidney disease, and hypothyroidism. Lack of regular exercise. SIGNS AND SYMPTOMS There are no signs or symptoms with dyslipidemia. DIAGNOSIS A simple blood test called a fasting blood test can be done to determine your level of: Total cholesterol. This is the combined number of LDL cholesterol and HDL cholesterol. A healthy number is lower than 200. LDL cholesterol. The goal number for LDL cholesterol is different for each person depending on risk factors. Ask your health care provider what your LDL cholesterol number should be. HDL cholesterol. A healthy level of HDL cholesterol is 60 or higher. A number lower than 40 for men or 50 for women is a danger sign. Triglycerides. A healthy triglyceride number is less than 150. TREATMENT Dyslipidemia is a treatable condition. Your health care provider will advise you on what type of treatment is best based on your age, your test results, and current guidelines. Treatment may include: Dietary changes. A dietitian can help you create a meal plan. You may need to: Eat more foods that contain omega-3s, such as salmon and other fish. Replace saturated fats and trans fats in your diet with healthy fats such as nuts, seeds, avocados, olive oil, and canola oil. Regular exercise. This can help lower your LDL cholesterol, raise your HDL cholesterol, and help with weight management. Check with your health care provider before beginning an exercise program. Most people should participate in 30 minutes of brisk exercise 5 days a week. Quitting smoking. Medicines to lower LDL cholesterol and triglycerides. Your health care provider will monitor your lipid levels with regular blood tests. HOME CARE INSTRUCTIONS Eat a healthy diet. Follow any diet instructions if they were given to you by your health care provider. Maintain a healthy weight. Exercise regularly based on the recommendations of your health care provider. Do not use any tobacco products, including cigarettes, chewing tobacco, or electronic cigarettes. Take medicines only as directed by your health care provider. Keep all follow-up visits as directed by your health care provider. SEEK MEDICAL CARE IF: You are having possible side effects from your medicines. Document Released: 04/29/2014 Document Revised: 09/08/2014 Document Reviewed: [employer] Patient Information 2015 [employer]. This information is not intended to replace advice given to you by your health care provider. Make sure you discuss any questions you have with your health care provider. Family Medicine Chronic Obstructive Pulmonary Disease Chronic obstructive [...] discoloration (cyanosis) of the skin, especially in fingers , toes, or lips. Fatigue. Weight loss. Frequent infections or episodes when breathing symptoms become much worse ( exacerbations). Chest tightness. DIAGNOSIS Your health care provider will take a medical history and perform a physical examination to make the initial diagnosis. Additional tests for COPD may include: Lung (pulmonary) function tests. Chest X-ray. CT scan. Blood tests. TREATMENT Treatment available to help you feel better when you have COPD includes: Inhaler and nebulizer medicines. These help manage the symptoms of COPD and make your breathing more comfortable. Supplemental oxygen. Supplemental oxygen is only helpful if you have a low oxygen level in your blood. Exercise and physical activity. These are beneficial for nearly all people with COPD. Some people may also benefit from a pulmonary rehabilitation program. HOME CARE INSTRUCTIONS Take all medicines (inhaled or pills) as directed by your health care provider. Avoid zeid-lpb-owahuuy medicines or cough syrups that dry up your airway ( such as antihistamines) and slow down the elimination [...] coughs. The steps of controlled coughing are: 1. Lean your head slightly forward. 2. Breathe in deeply using diaphragmatic breathing. 3. Try to hold your breath for 3 seconds. 4. Keep your mouth slightly open while coughing twice. 5. Spit any mucus out into a tissue. 6. Rest and repeat the steps once or twice [...] get worse. Document Released: 02/01/2006 Document Revised: 09/08/2014 Document Reviewed: [facility] Patient Information 2015 [employer] [facility]. This information is not intended to replace advice given to you by your health care provider. Make sure you discuss any questions you have with your health care provider. No follow up information was provided. Extracted from: Title: Office Visit Note Author: Reed Grant MD Date: 06/05/15 Assessment/Plan Anxiety Continue with the current medications. Ordered: CBC Hemogram Benign essential hypertension Will be getting lab. Ordered: Comprehensive Metabolic Panel Office Visit Level 4 Est 22283 COPD (chronic obstructive pulmonary disease) Ordered: Office Visit Level 4 Est 75635 Disc degeneration, lumbosacral, Disc degeneration, lumbosacral Ordered: Sedimentation Rate High cholesterol, High cholesterol Ordered: Lipid Panel Office Visit Level 4 Est 50138 Hypothyroidism Ordered: Office Visit Level 4 Est 14912
--- OUTSIDE RECORDS SUMMARY | 2016-08-11 06:42 | XMS REPORT | Summary of Care ---
Author Author Brandon Brice M.D. 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 * Quantity: 10 Refills: 0 Brandon Brice M.D. * Start 08-Apr-2016 Active Fluconazole 150 MG Oral Tablet TAKE 1 TABLET 1 TIME ONLY. after Cipro is done * Quantity: 1 Refills: 0 Brandon Brice M.D. * Start 08-Apr-2016 Active Allergies and Adverse Reactions Name Dates [...] smoker Vital Signs Date Test Result Details 08-Apr-2016 12:24 BP Systolic 112 mm[Hg] Status: Comments: Location: ; Position: BP Diastolic 69 mm[Hg] Status: Comments: Location: ; Position: Heart Rate 86 /min Status: Comments: Location: ; Physical Findings 16 Status: Comments: Respiration 30-Mar-2016 15:21 BP Systolic 115 mm[Hg] Status: [...] ; 22-Mar-2016 10:47 Temperature 98.1 f Status: Comments: Method: Heart Rate 90 /min Status: Comments: Location: ; Physical Findings 96 Status: Comments: O2 Saturation Results Date Description Value Details 11-Apr-2016 09:25 URINE CULTURE [id number] Comments: [employer] performed at: [facility], [address] [place] [address], [address] [place] [address], Circle Shear Operator: Brandon Haas D.O., MPHQuest Collection Date/Time: [id number] Results Received Date/Time: [id number] Reported Date/Time: [id number] performed at: [facility], [address] [place] [address], [address] [place] [address], Circle Shear Operator: Brandon Haas D.O., MPHQuest Collection Date/Time: [id number] Results Received Date/Time: [id number] Reported Date/Time: [id number] performed at: [facility], [address] [place] [address], [address] [place] [address], Circle Shear Operator: Brandon Haas D.O., MPHQuest Collection Date/Time: [id number] Results Received Date/Time: [id number] Reported Date/Time: [id number] CULTURE, URINE, ROUTINE SEE NOTE (Abnormal) Comments: CULTURE, URINE, ROUTINE MICRO NUMBER: [id number] TEST STATUS: FINAL SPECIMEN SOURCE : URINE, CLEAN CATCH SPECIMEN QUALITY: ADEQUATE RESULT: Greater than 100,000 CFU/mL of Escherichia coli E.coli INT DARLENE AMOX/ CLAVULANATE S 8 AMPICILLIN R >=32 AMP/SULBACTAM I 16 CEFAZOLIN NR <=4 1 CEFEPIME S <=1 CEFTRIAXONE S <=1 CIPROFLOXACIN S <= 0.25 ERTAPENEM S <=0.5 GENTAMICIN R >=16 IMIPENEM S <=0.25 LEVOFLOXACIN S <=0.12 NITROFURANTOIN S <=16 PIP/TAZOBACTAM S <=4 TOBRAMYCIN S 4 TRIMETHOPRIM/SULFA S <=20S=Susceptible I=Intermediate R=Resistant *=Not TestedNR=Not Reported NN=See Therapy CommentsTHERAPY COMMENTS Note 1: ORAL therapy: A cefazolin DARLENE of < 32 predicts susceptibility to the oral agents cefaclor, cefdinir, cefpodoxime , cefprozil, cefuroxime, cephalexin, and loracarbef when used for therapy of uncomplicated UTIs due to E. coli, K. pneumoniae, and P. mirabilis. PARENTERAL therapy: A cefazolin DARLENE of > 8 indicates resistance to parenteral cefazolin. An alternate test method must be performed to to confirm susceptibility to parenteral cefazolin.[KS]----- Plan of Care Name Dates Details Planned Observations Planned Goals not documented Planned Encounters Appointment; Provider: Brandon Brice M.D. On 20-May-2016 14:00 Instructions Name Dates Details Instructions not documented Encounters Appointment; Brandon Brice M.D. Encounter Diagnosis: Problem not documented On 08-Apr-2016 12:30 Appointment; Brandon Brice M.D. Encounter Diagnosis: Problem not documented On 30-Mar-2016 15:15 Appointment; Brandon Brice M.D. Encounter Diagnosis: Problem not documented On 23-Mar-2016 15:30 Appointment; Lewis Hogue M.D. Encounter Diagnosis: Problem not documented On 22-Mar-2016 10:45 Appointment; Brandon Brice M.D. Encounter Diagnosis: Problem not documented On 16-Mar-2016 13:45 Appointment; Lewis Hogue M.D. Encounter Diagnosis: Problem not documented On 23-Feb-2016 11:00
--- OUTSIDE RECORDS SUMMARY | 2016-08-11 06:42 | XMS REPORT | Summary of Care ---
Author Author Brandon Brice M.D. Unknown Address [address] [place] [address] [place] [address] Phone Unavailable Care Team Providers Care Geosciences Professor Name Role Phone Mykel Benavides, Lewis Unavailable [...] By Anterior Approach History of Graft Harvesting URINE CULTURE [id number] Ordered: 08-Apr-2016 Immunization Name Dates Details Immunizations not documented [...] Provider: Brandon Brice M.D. On 20-May-2016 14:00 Interventions Provided Medication Changes* Ciprofloxacin HCl - 250 MG Oral Tablet - Start * Fluconazole 150 MG Oral Tablet - Start Labs/Procedures/Imaging* URINE CULTURE [id number]; To be Done: 08 Apr 2016 Instructions Name Dates Details Instructions not documented [...]
--- OUTSIDE RECORDS SUMMARY | 2016-08-11 06:42 | XMS REPORT | Referral Summary ---
Author Author [facility], Family Medicine Organization [facility] Address Unknown Phone Unavailable Care Team Providers Care Licsw Name Role Phone Oral Grant Primary Care Physician [phone] Encounter VC Date(s): 05/21/15 - 05/21/15 [facility], [address] [place] [address]- Discharge Disposition: 01-Home or Self Care Attending Physician: Reed Grant MD Admitting Physician: Reed Grant MD Vital Signs Most recent to 1 oldest [Reference Range]: Blood Pressure 104/68 mmHg [90-140/60-90 mmHg] (05/21/15 10:00 AM) Problem List Condition Effective Dates Status [...] 0 Refill(s) Start Date: 01/13/15 Status: Ordered levothyroxine 75 mcg (0.075 mg) oral tablet See Instructions, TAKE ONE TABLET BY MOUTH DAILY, # 30 tabs, 2 Refill(s), eRx: [facility] #[id number], TAKE ONE TABLET BY MOUTH DAILY Start Date: 02/16/15 Status: Ordered Lexapro 5 mg oral tablet 5 mg 1 tabs, Oral, Daily, # 30 tabs, 1 Refill(s), Pharmacy: [facility] # [id number], 1 tabs Oral Daily Start Date: 03/27/15 Status: Ordered Premarin 0.625 mg/g vaginal cream with applicator See Instructions, 0.5 applicator Vaginal twice a week., # 42 g, 5 Refill(s), Pharmacy: [facility] #[id number] Start Date: 07/21/14 Status: Ordered Robaxin 500 mg oral tablet 500 mg 1 tabs, Oral, QID, as needed for pain, # 120 tabs, 0 Refill(s), Pharmacy : [facility] #[id number], 1 tabs Oral QID,PRN:as needed for pain Start Date: 01/22/15 Status: Ordered Symbicort 80 mcg-4.5 mcg/inh inhalation aerosol 2 puffs, Inhalation, Daily, 0 Refill(s) Start Date: 04/23/15 Status: Ordered Symbicort 80 mcg-4.5 mcg/inh inhalation aerosol 2 puffs, Inhalation, BID, # 10.2 g, 3 Refill(s), Pharmacy: [facility] # [id number] Start Date: 05/21/15 Status: Ordered Ventolin HFA 90 mcg/inh inhalation aerosol 2 puffs, Inhalation, QID, # 2 Each, 3 Refill(s), Pharmacy: [facility] # [id number], 2 puffs Inhalation QID Start Date: 01/01/15 [...] hysterectomy5 1968 tonsilectomy 195 anterior lumbar fusion 2006 left knee menisectomy skin graft left buttock [...]
--- OUTSIDE RECORDS SUMMARY | 2016-08-11 06:42 | XMS REPORT | Summary of Care ---
Author Author Brandon Brice M.D. Unknown Address [address] [place] [address] [place] [address] Phone Unavailable Care Team Providers Care Licensed Embalmer Supervisor Name Role Phone Mykel Benavides, Lewis Unavailable [...]
--- OUTSIDE RECORDS SUMMARY | 2016-08-11 06:42 | XMS REPORT | Referral Summary ---
Author Author [facility] Medicine Organization [facility] Address Unknown Phone Unavailable Care Team Providers Care Stencil Machine Operator Name Role Phone Oral Grant Primary Care Physician [phone] Encounter VC Date(s): 02/24/16 - 02/24/16 [facility] [address] [place] [address] Discharge Disposition: 01-Home or Self Care Attending Physician: Reed Grant MD Admitting Physician: Reed Grant MD Vital Signs No data available for [...] FOR APPOINTMENT, # 42.5 unknown unit, eRx: [facility] #[id number], APPLY 1 GM VAGINALLY 3 TIMES WEEKLY -- MUST CALL MD FOR APPOINTMENT Start Date: 01/19/16 Status: Ordered ferrous sulfate Oral, 0 Refill(s) Start Date: 12/30/15 Status: Ordered levothyroxine 75 mcg (0.075 mg) oral tablet See Instructions, TAKE ONE TABLET BY MOUTH DAILY, # 30 tabs, eRx: [facility] #[id number], TAKE ONE TABLET BY MOUTH DAILY Start Date: 01/07/16 Status: Ordered Lexapro 5 mg oral tablet 5 mg 1 tabs, Oral, Daily, # 30 tabs, 1 Refill(s), Pharmacy: [facility] # [id number], 1 tabs Oral Daily Start Date: 03/27/15 Status: Ordered Robaxin 500 mg oral tablet 500 mg 1 tabs, Oral, QID, as needed for pain, # 120 tabs, 0 Refill(s), Pharmacy : [facility] #[id number], 1 tabs Oral QID,PRN:as needed for pain Start Date: 01/22/15 Status: Ordered Symbicort 80 mcg-4.5 mcg/inh inhalation aerosol See Instructions, INHALE TWO PUFFS BY MOUTH TWICE A DAY, # 10.2 unknown unit, 2 Refill(s), eRx: [facility] #[id number], INHALE TWO PUFFS BY MOUTH TWICE A DAY Start Date: 11/06/15 Status: Ordered Ventolin HFA 90 mcg/inh inhalation aerosol See Instructions, INHALE TWO PUFFS BY MOUTH FOUR TIMES A DAY NEEDED FOR WHEEZING, # 18 unknown unit, 2 Refill(s), eRx: [facility] #[id number], INHALE TWO PUFFS BY MOUTH FOUR TIMES [...]
--- OUTSIDE RECORDS SUMMARY | 2016-08-11 06:42 | XMS REPORT | Referral Summary ---
Author Author [facility], [facility] Medicine Organization [facility] Address Unknown Phone Unavailable Care Team Providers Care Sewer System Supervisor Name Role Phone Oral Grant Primary Care Physician [phone] Encounter VC Date(s): 06/19/15 - 06/19/15 [facility] [address] [place] [address]- Discharge Diagnosis: Disc degeneration, lumbosacral Discharge Diagnosis: Benign essential hypertension Discharge Diagnosis: High cholesterol Discharge Diagnosis: COPD bronchitis Discharge Disposition: 01-Home or Self Care Attending Physician: Reed Grant MD Admitting Physician: Reed Grant MD Vital Signs Most recent to 1 oldest [Reference Range]: Blood Pressure 98/56 mmHg [90-140/60-90 mmHg] (06/19/15 3:38 PM) Problem List Condition Effective Dates Status [...] REFILLS., # 42 g, 0 Refill(s), Pharmacy: [facility] #[id number] Start Date: 05/22/15 Status: Ordered levothyroxine 75 mcg (0.075 mg) oral tablet See Instructions, TAKE ONE TABLET BY MOUTH DAILY, # 30 tabs, 2 Refill(s), eRx: [facility] #[id number], TAKE ONE TABLET BY MOUTH DAILY Start Date: 02/16/15 Status: Ordered Lexapro 5 mg oral tablet 5 mg 1 tabs, Oral, Daily, # 30 tabs, 1 Refill(s), Pharmacy: [facility] # [id number], 1 tabs Oral Daily Start Date: 03/27/15 Status: Ordered Robaxin 500 mg oral tablet 500 mg 1 tabs, Oral, QID, as needed for pain, # 120 tabs, 0 Refill(s), Pharmacy : [facility] #[id number], 1 tabs Oral QID,PRN:as needed for pain Start Date: 01/22/15 Status: Ordered Symbicort 80 mcg-4.5 mcg/inh inhalation aerosol 2 puffs, Inhalation, BID, # 10.2 g, 3 Refill(s), Pharmacy: [facility] # [id number] Start Date: 05/21/15 Status: Ordered Ventolin HFA 90 mcg/inh inhalation aerosol 2 puffs, Inhalation, QID, # 2 Each, 3 Refill(s), Pharmacy: [facility] # [id number], 2 puffs Inhalation QID Start Date: 01/01/15 [...] Patient Education Author: Reed Grant MD Date: 04/22 Allergy Chronic Bronchitis Chronic bronchitis is a lasting inflammation of the bronchial tubes, which are the tubes that carry air into your lungs. This is inflammation that occurs: On most days of the week. For at least three months at a time. Over a period of two years in a row. When the bronchial tubes are inflamed, they start to produce mucus. The inflammation and buildup of mucus make it more difficult to breathe. Chronic bronchitis is usually a permanent problem and is one type of chronic obstructive pulmonary disease (COPD). People with chronic bronchitis are at greater risk for getting repeated colds, or respiratory infections. CAUSES Chronic bronchitis most often occurs in people who have: Long-standing, severe asthma. A history of smoking. Asthma and who also smoke. SIGNS AND SYMPTOMS Chronic bronchitis may cause the following: A cough that brings up mucus (productive cough). Shortness of breath. caretaker grounds headache. Wheezing. Chest discomfort. Recurring respiratory infections. DIAGNOSIS Your health care provider may confirm the diagnosis by: Taking your medical history. Performing a physical exam. Taking a chest X-ray. Performing pulmonary function tests. TREATMENT Treatment involves controlling symptoms with medicines, oxygen therapy, or making lifestyle changes, such as exercising and eating a healthy, well- balanced diet. Medicines could include: Inhalers to improve air flow in and out of your lungs. Antibiotics to treat bacterial infections, such as pneumonia, sinus infections, and acute bronchitis. As a preventative measure, your health care provider may recommend routine vaccinations for influenza and pneumonia. This is to prevent infection and hospitalization since you may be more at risk for these types of infections. HOME CARE INSTRUCTIONS Take medicines only as directed by your health care provider. If you smoke cigarettes, chew tobacco, or use electronic cigarettes, quit. If you need help quitting, ask your health care provider. Avoid pollen, dust, animal dander, molds, smoke, and other things that cause shortness of breath or wheezing attacks. Talk to your health care provider about possible exercise routines. Regular exercise is very important to help you feel better. If you are prescribed oxygen use at home follow these guidelines: Never smoke while using oxygen. Oxygen does not burn or explode, but flammable materials will burn faster in the presence of oxygen. Keep a fire extinguisher close by. Let your fire department know that you have oxygen in your home. Warn visitors not to smoke near you when you are using oxygen. Put up " no smoking" signs in your home where you most often use the oxygen. Regularly test your smoke detectors at home to make sure they work. If you receive care in your home from a nurse or other health care provider, he or she may also check to make sure your smoke detectors work. Ask your health care provider whether you would benefit from a pulmonary rehabilitation program. Do not wait to get medical care if you have any concerning symptoms. Delays could cause permanent injury and may be life threatening. SEEK MEDICAL CARE IF: You have increased coughing or shortness of breath or both. You have muscle aches. You have chest pain. Your mucus gets thicker. Your mucus changes from clear or white to yellow, green, harvey, or bloody. SEEK IMMEDIATE MEDICAL CARE IF: Your usual medicines do not stop your wheezing. You have increased difficulty breathing. You have any problems with the medicine you are taking, such as a rash, itching, swelling, or trouble breathing. MAKE SURE YOU: Understand these instructions. Will watch your condition. Will get help right away if you are not doing well or get worse. This information is not intended to replace advice given to you by your health care provider. Make sure you discuss any questions you have with your health care provider. Document Released: 02/09/2007 Document Revised: 02/10/2015 Document Reviewed: [facility] Patient Information 2015 [facility]. Cardiovascular Dyslipidemia Dyslipidemia is an imbalance of [...] cholesterol. Certain medicines, including control pills, diuretics, beta- blockers, and some medicines for depression. Smoking. Eating [...] Treatment may include: Dietary changes. A dietitian may help you create a diet that is based on your risk factors, conditions, and lifestyle. Regular exercise. This can help lower your LDL cholesterol, raise your HDL cholesterol, and help with weight management. Check with your health care provider before beginning an exercise program. Most people should participate in 30 minutes of brisk exercise 5 days a week. Quitting smoking. Medicines to lower LDL cholesterol and triglycerides. If you have high levels of triglycerides, your health care provider may: Have you stop drinking alcohol. Have you restrict your fat intake. Have you eliminate refined sugars from your diet. Treat you for other conditions, such as underactive thyroid gland ( hypothyroidism) and high blood sugar (hyperglycemia). Your health care provider will monitor your [...] having possible side effects from your medicines. This information is not intended to replace advice given to you by your health care provider. Make sure you discuss any questions you have with your health care provider. Document Released: 04/29/2014 Document Revised: 02/10/2015 Document Reviewed: [employer] Patient Information 2015 [place]. No follow up information was provided. Extracted from: Title: Office Visit Note Author: Reed Grant MD Date: 06/19/15 Assessment/Plan Benign essential hypertension, Essential (primary) hypertension continue with the current medications and follow up in 3 months. Ordered: Office Visit Level 3 Est 98091 Chronic obstructive pulmonary disease, unspecified, COPD bronchitis Ordered: Office Visit Level 3 Est 79387 Disc degeneration, lumbosacral, Other intervertebral disc degeneration, lumbosacral region Ordered: Office Visit Level 3 Est 94036 High cholesterol, Pure hypercholesterolemia Ordered: Office Visit Level 3 Est 11357
--- OUTSIDE RECORDS SUMMARY | 2016-08-11 06:42 | XMS REPORT | Summary of Care ---
Author Author Brandon Brice M.D. Unknown Address [address] [place] [address] [place] [address] Phone Unavailable Care Team Providers Care Anodiser Name Role Phone Mykel Benavides, Lewis Unavailable [...] Approach History of Graft Harvesting URINE CULTURE [id number] Ordered: 08-Apr-2016 Immunization Name Dates Details Immunizations [...] Oral Tablet - Start Labs/Procedures/Imaging* URINE CULTURE [id number]; To be Done: 08 Apr 2016 Instructions [...]
--- OUTSIDE RECORDS SUMMARY | 2016-08-11 06:42 | XMS REPORT | Summary of Care ---
Author Author Brandon Brice M.D. Unknown Address [address] [place] [address] [place] [address] Phone Unavailable Care Team Providers Care Liquid Waste Treatment Plant Operator Name Role Phone Mykel Benavides, Lewis Unavailable [...] and lumbosacral neuritis (724.4, M54.14) Status: Active Kidney pain (788.0, N23) Status: Active Nocturia (788.43, R35.1) Status: Active Abdominal pain (789.00, R10.9) Status: Active Allergic rhinitis (477.9, J30.9) Status: Active Incomplete bladder emptying (788.21, R33.9) Status: Active Difficulty urinating (788.99, R39.198) Status: Active Abdominal pain of multiple sites (789.09, R10.9) Status: Active Pancreatic cyst (577.2, K86.2) Status: Active Medications Name Dates Details Levothyroxine [...] smoker Vital Signs Date Test Result Details 23-Mar-2016 15:43 BP Systolic 139 mm[Hg] Status: [...] Encounters Appointment; Provider: Brandon Brice M.D. On 30-Mar-2016 15:15 Instructions Name Dates Details Instructions not documented Encounters Appointment; Lewis Hogue M.D. Encounter Diagnosis: Problem not documented On 22-Mar-2016 10:45 Appointment; Brandon Brice M.D. Encounter Diagnosis: Problem not documented On 16-Mar-2016 13:45 Appointment; Lewis Hogue M.D. Encounter Diagnosis: Problem not documented On 23-Feb-2016 11:00
--- OUTSIDE RECORDS SUMMARY | 2016-08-11 06:43 | XMS REPORT | Referral Summary ---
Author Organization Unknown Address Unknown Phone Unavailable Care Team Providers Care Land Manager Name Role Phone Oral Grant Primary Care Physician [phone] Encounter VC Date(s): 09/01/14 - 09/01/14 [facility], [address] [place] [address] Discharge Diagnosis: Breast pain, left Discharge Disposition: Home or Self Care Attending Physician: Reed Grant MD Admitting Physician: Reed Grant MD Vital Signs Most recent to 1 oldest [Reference Range]: Temperature Tympanic 36.7 degC [36.6-38.1 degC] (09/01/14 1:30 PM) Peripheral Pulse 80 bpm Rate [60-100 bpm] (09/01/14 1:30 PM) Respiratory Rate 14 br/min [14-20 br/min] (09/01/14 1:30 PM) Blood Pressure 124/72 mmHg [90-140/60-90 mmHg] (09/01/14 1:30 PM) Problem List Condition Effective Dates Status [...] spasm, # 6 tabs, 0 Refill(s), Pharmacy: [facility] #[id number], 1 tabs Oral TID,PRN:as needed for spasm Start Date: 12/16/13 Status: Ordered Dulera 200 mcg-5 mcg/inh inhalation aerosol See Instructions, INHALE TWO PUFFS BY MOUTH TWICE A DAY *NEED TO MAKE APPOINTMENT*, # 13 unknown unit, eRx: [facility] #[id number], INHALE TWO PUFFS BY MOUTH TWICE A DAY *NEED TO MAKE APPOINTMENT* Special Instructions: INHALE TWO PUFFS BY MOUTH TWICE A DAY *NEED TO MAKE APPOINTMENT* Start Date: 08/13/14 Status: Ordered levothyroxine 75 mcg (0.075 mg) oral tablet See Instructions, TAKE ONE TABLET BY MOUTH ONCE A DAY, # 30 tabs, eRx: [facility] #[id number], TAKE ONE TABLET BY MOUTH ONCE A DAY Special Instructions: TAKE ONE TABLET BY MOUTH ONCE A DAY Start Date: 08/13/14 Status: Ordered Mobic 7.5 mg oral tablet 1 tabs, Oral, BID, 0 Refill(s) Start Date: 10/09/13 Status: Ordered Premarin 0.625 mg/g vaginal cream with applicator See Instructions, 0.5 applicator Vaginal twice a week., # 42 g, 5 Refill(s), Pharmacy: [facility] #[id number] Special Instructions: 0.5 applicator Vaginal twice a week. Start Date: 07/21/14 Status: Ordered Toviaz 4 mg oral tablet, extended release 1 tabs, Oral, Daily, # 30 tabs, 0 Refill(s) Start Date: 09/01/14 Status: Ordered Vitamin B-12 5,000 mcg, 0 [...]
--- OUTSIDE RECORDS SUMMARY | 2016-08-11 06:43 | XMS REPORT | Referral Summary ---
Author Author [facility] Organization [facility] Address Unknown Phone Unavailable Care Team Providers Care Coil Wrapper Name Role Phone Oral Grant Primary Care Physician [phone] Encounter VC Date(s): 10/08/14 - 10/08/14 [facility] [address] [place] [address] [place] [address]- Discharge Diagnosis: Breast lump Discharge Diagnosis: Breast pain Discharge Disposition: 01-Home or Self Care Attending Physician: Feliciano Oneal MD Admitting Physician: Feliciano Oneal MD Referring Physician: Reed Grant MD Vital Signs Most recent to 1 oldest [Reference Range]: Temperature Tympanic 37.3 degC [36.6-38.1 degC] (10/08/14 1:21 PM) Peripheral Pulse 68 bpm Rate [60-100 bpm] (10/08/14 1:21 PM) Respiratory Rate 20 br/min [14-20 br/min] (10/08/14 1:21 PM) Blood Pressure 108/74 mmHg [90-140/60-90 mmHg] (10/08/14 1:21 PM) Problem List Condition Effective Dates Status [...] BY MOUTH TWICE A DAY, # 13 unknown unit, 1 Refill(s), eRx: [facility] #[id number], INHALE TWO PUFFS BY MOUTH TWICE A DAY Start Date: 04/15/15 Status: Ordered Dulera 200 mcg-5 mcg/inh inhalation aerosol See Instructions, INHALE TWO PUFFS BY MOUTH TWICE A DAY, # 13 g, 2 Refill(s), Pharmacy: [facility] #[id number] Start Date: 01/01/15 Status: Ordered levothyroxine 75 mcg (0.075 mg) oral tablet See Instructions, TAKE ONE TABLET BY MOUTH DAILY, # 30 tabs, 2 Refill(s), eRx: [facility] #[id number], TAKE ONE TABLET BY MOUTH DAILY Start Date: 02/16/15 Status: Ordered Lexapro 5 mg oral tablet 5 mg 1 tabs, Oral, Daily, # 30 tabs, 1 Refill(s), Pharmacy: [facility] # [id number], 1 tabs Oral Daily Start Date: 03/27/15 Status: Ordered meclizine 25 mg oral tablet 25 mg 1 tabs, Oral, q6hr, # 15 tabs, 0 Refill(s) Start Date: 03/23/15 Status: Ordered Mobic 7.5 mg oral tablet 1 tabs, Oral, BID, 0 Refill(s) Start Date: 10/09/13 Status: Ordered Hinkle 5 mg-325 mg oral tablet See Instructions, as needed for pain, 0.5 tabs Oral q6-8hr prn pain, # 10 tabs, 0 Refill(s) Start Date: 12/09/14 Status: Ordered Premarin 0.625 mg/g vaginal cream with applicator See Instructions, 0.5 applicator Vaginal twice a week., # 42 g, 5 Refill(s), Pharmacy: [facility] #[id number] Start Date: 07/21/14 Status: Ordered Robaxin 500 mg oral tablet 500 mg 1 tabs, Oral, QID, as needed for pain, # 120 tabs, 0 Refill(s), Pharmacy : [facility] #[id number], 1 tabs Oral QID,PRN:as needed for pain Start Date: 01/22/15 Status: Ordered Toviaz 4 mg oral tablet, extended release 1 tabs, Oral, Daily, # 30 tabs, 0 Refill(s) Start Date: 09/01/14 Status: Ordered Ventolin HFA 90 mcg/inh inhalation aerosol 2 puffs, Inhalation, QID, # 2 Each, 3 Refill(s), Pharmacy: [facility] # [id number], 2 puffs Inhalation QID Start Date: 01/01/15 [...] Extracted from: Title: Ambulatory Patient Education Author: Feliciano Oneal MD Date: 10/08 Family Medicine Breast Tenderness Breast tenderness is a common problem for women of all ages. Breast tenderness may cause mild discomfort to severe pain. It has a variety of causes. Your health care provider will find out the likely cause of your breast tenderness by examining your breasts, asking you about symptoms, and ordering some tests. Breast tenderness usually does not mean you have breast cancer. HOME CARE INSTRUCTIONS Breast tenderness often can be handled at home. You can try: Getting fitted for a new bra that provides more support, especially during exercise. Wearing a more supportive bra or sports bra while sleeping when your breasts are very tender. If you have a breast injury, apply ice to the area: Put ice in a plastic bag. Place a towel between your skin and the bag. Leave the ice on for 20 minutes, 23 times a day. If your breasts are too full of milk as a result of , try: Expressing milk either by hand or with a breast pump. Applying a warm compress to the breasts for relief. Taking [id number] pain relievers, if approved by your health care provider. Taking other medicines that your health care provider prescribes. These may include antibiotic medicines or control pills. Over the intermodal owner operator truck driver, your breast tenderness might be eased if you: Cut down on caffeine. Reduce the amount of fat in your diet. Keep a log of the days and times when your breasts are most tender. This will help you and your health care provider find the cause of the tenderness and how to relieve it. Also, learn how to do breast exams at home. This will help you notice if you have an unusual growth or lump that could cause tenderness. SEEK MEDICAL CARE IF: Any part of your breast is hard, red, and hot to the touch. This could be a sign of infection. Fluid is coming out of your nipples (and you are not ). Especially watch for blood or pus. You have a fever as well as breast tenderness. You have a new or painful lump in your breast that remains after your menstrual period ends. You have tried to take care of the pain at home, but it has not gone away. Your breast pain is getting worse, or the pain is making it hard to do the things you usually do during your day. Document Released: 04/06/2009 Document Revised: 12/25/2013 Document Reviewed: ExitCare Patient Information 2014 [place] [facility]. No follow up information was provided. Extracted from: Title: Office Visit Note Author: Feliciano Oneal MD Date: 10/08/14 Assessment/Plan Breast lump right Ordered: Office Visit Level 4 Est 64458 Breast pain left, with history of prior benign biopsy Ordered: Office Visit Level 4 Est 93525 Plan: Radiographic evaluation of breast at this time consisting of Right diagnostic mammogram and Left screening mammogram. Further evaluation/intervention depending upon these radiographic results. I did review the patient's chart including a recent CT scan of her chest performed on September 19, 2014 which revealed a 2 mm nodule within the right middle lobe. Emphysematous changes were also noted. Furthermore, there was a 14 mm soft tissue density within the right breast and further evaluation was recommended with right diagnostic mammography. Reviewed recent note performed by PCPs topographical field assistant on September 02, 2014. Reviewed my prior office note from October. From reviewing her chart it does appear that the last radiographic evaluation of the patient's breast was performed in 2011. I strongly encouraged the patient to proceed at this time with radiographic evaluation of her breast. We will wait these results and proceed accordingly with further recommendations.
--- OUTSIDE RECORDS SUMMARY | 2016-08-11 06:43 | XMS REPORT | Referral Summary ---
Author Author [facility], [facility] Organization [facility] Address Unknown Phone Unavailable Care Team Providers Care Rn Diabetes Name Role Phone Oral Grant Primary Care Physician [phone] Encounter VC Date(s): 03/27/15 - 03/27/15 [facility] [address] [place] [address]- Discharge Disposition: 01-Home or Self Care Attending Physician: Reed Grant MD Admitting Physician: Reed Grant MD Vital Signs Most recent to 1 oldest [Reference Range]: Blood Pressure 112/74 mmHg [90-140/60-90 mmHg] (03/27/15 2:35 PM) Problem List Condition Effective Dates Status [...] DAY, # 13 g, 2 Refill(s), Pharmacy: [facility] #[id number] Start Date: 01/01/15 Status: Ordered levothyroxine 75 mcg (0.075 mg) oral tablet See Instructions, TAKE ONE TABLET BY MOUTH DAILY, # 30 tabs, 2 Refill(s), eRx: [facility] #[id number], TAKE ONE TABLET BY MOUTH DAILY Start Date: 02/16/15 Status: Ordered Lexapro 5 mg oral tablet 5 mg 1 tabs, Oral, Daily, # 30 tabs, 1 Refill(s), Pharmacy: [facility] # [id number], 1 tabs Oral Daily Start Date: 03/27/15 Status: Ordered meclizine 25 mg oral tablet 25 mg 1 tabs, Oral, q6hr, # 15 tabs, 0 Refill(s) Start Date: 03/23/15 Status: Ordered Mobic 7.5 mg oral tablet 1 tabs, Oral, BID, 0 Refill(s) Start Date: 10/09/13 Status: Ordered Lincoln 5 mg-325 mg oral tablet See Instructions, as needed for pain, 0.5 tabs Oral q6-8hr prn pain, # 10 tabs, 0 Refill(s) Start Date: 12/09/14 Status: Ordered Premarin 0.625 mg/g vaginal cream with applicator See Instructions, 0.5 applicator Vaginal twice a week., # 42 g, 5 Refill(s), Pharmacy: [facility] #[id number] Start Date: 07/21/14 Status: Ordered Robaxin 500 mg oral tablet 500 mg 1 tabs, Oral, QID, as needed for pain, # 120 tabs, 0 Refill(s), Pharmacy : [facility] #[id number], 1 tabs Oral QID,PRN:as needed for pain Start Date: 01/22/15 Status: Ordered Toviaz 4 mg oral tablet, extended release 1 tabs, Oral, Daily, # 30 tabs, 0 Refill(s) Start Date: 09/01/14 Status: Ordered Ventolin HFA 90 mcg/inh inhalation aerosol 2 puffs, Inhalation, QID, # 2 Each, 3 Refill(s), Pharmacy: [facility] # [id number], 2 puffs Inhalation QID Start Date: 01/01/15 [...]
--- OUTSIDE RECORDS SUMMARY | 2016-08-11 06:43 | XMS REPORT | Referral Summary ---
Author Author [facility] Medicine Organization [facility] Address Unknown Phone Unavailable Care Team Providers Care Garden Equipment Mechanic Name Role Phone Oral Grant Primary Care Physician [phone] Encounter VC Date(s): 09/25/15 - 09/25/15 [facility] [address] [place] [address]- Discharge Disposition: 01-Home or Self Care Attending Physician: Reed Grant MD Admitting Physician: Reed Grant MD Vital Signs Most recent to 1 oldest [Reference Range]: Blood Pressure 104/64 mmHg [90-140/60-90 mmHg] (09/25/15 1:14 PM) Problem List Condition Effective Dates Status [...] days, # 20 tabs, 0 Refill(s), Pharmacy: [facility] #[id number], 1 tabs Oral BID,x10 days Start Date: 09/25/15 Stop Date: 10/05/15 Status: Ordered cetirizine 10 mg oral tablet 10 mg 1 tabs, Oral, Daily, 0 Refill(s) Start Date: 01/13/15 Status: Ordered estradiol 0.1 mg/g vaginal cream 1 g, Vaginal, 3x/Wk, APPOINTMENT NEEDED PRIOR TO ADDITIONAL REFILLS., # 42 g, 0 Refill(s), Pharmacy: [facility] #[id number] Start Date: 05/22/15 Status: Ordered levothyroxine 75 mcg (0.075 mg) oral tablet See Instructions, TAKE ONE TABLET BY MOUTH DAILY, # 30 tabs, 1 Refill(s), eRx: [facility] #[id number], TAKE ONE TABLET BY MOUTH DAILY Start Date: 08/17/15 Status: Ordered Lexapro 5 mg oral tablet 5 mg 1 tabs, Oral, Daily, # 30 tabs, 1 Refill(s), Pharmacy: [facility] # [id number], 1 tabs Oral Daily Start Date: 03/27/15 Status: Ordered Robaxin 500 mg oral tablet 500 mg 1 tabs, Oral, QID, as needed for pain, # 120 tabs, 0 Refill(s), Pharmacy : [facility] #[id number], 1 tabs Oral QID,PRN:as needed for pain Start Date: 01/22/15 Status: Ordered Symbicort 80 mcg-4.5 mcg/inh inhalation aerosol 2 puffs, Inhalation, BID, # 10.2 g, 3 Refill(s), Pharmacy: [facility] # [id number] Start Date: 05/21/15 Status: Ordered Ventolin HFA 90 mcg/inh inhalation aerosol 2 puffs, Inhalation, QID, # 2 Each, 3 Refill(s), Pharmacy: [facility] # [id number], 2 puffs Inhalation QID Start Date: 01/01/15 [...] Patient Education Author: Reed Grant MD Date: Allergy Sinusitis, Adult Sinusitis is redness, soreness, and inflammation of the paranasal sinuses. Paranasal sinuses are air pockets within the bones of your face. They are located beneath your eyes, in the middle of your forehead, and above your eyes. In healthy paranasal sinuses, mucus is able to drain out, and air is able to circulate through them by way of your nose. However, when your paranasal sinuses are inflamed, mucus and air can become trapped. This can allow bacteria and other germs to grow and cause infection. Sinusitis can develop quickly and last only a short time (acute) or continue over a long period (chronic). Sinusitis that lasts for more than 12 weeks is considered chronic. CAUSES Causes of sinusitis include: Allergies. Structural abnormalities, such as displacement of the cartilage that separates your nostrils (deviated septum), which can decrease the air flow through your nose and sinuses and affect sinus drainage. Functional abnormalities, such as when the small hairs (cilia) that line your sinuses and help remove mucus do not work properly or are not present. SIGNS AND SYMPTOMS Symptoms of acute and chronic sinusitis are the same. The primary symptoms are pain and pressure around the affected sinuses. Other symptoms include: Upper toothache. Earache. Headache. Bad breath. Decreased sense of smell and taste. A cough, which worsens when you are lying flat. Fatigue. Fever. Thick drainage from your nose, which often is green and may contain pus ( purulent). Swelling and warmth over the affected sinuses. DIAGNOSIS Your health care provider will perform a physical exam. During your exam, your health care provider may perform any of the following to help determine if you have acute sinusitis or chronic sinusitis: Look in your nose for signs of abnormal growths in your nostrils (nasal polyps). Tap over the affected sinus to check for signs of infection. View the inside of your sinuses using an imaging device that has a light attached (endoscope). If your health care provider suspects that you have chronic sinusitis, one or more of the following tests may be recommended: Allergy tests. Nasal culture. A sample of mucus is taken from your nose, sent to a lab, and screened for bacteria. Nasal cytology. A sample of mucus is taken from your nose and examined by your health care provider to determine if your sinusitis is related to an allergy. TREATMENT Most cases of acute sinusitis are related to a viral infection and will resolve on their own within 10 days. Sometimes, medicines are prescribed to help relieve symptoms of both acute and chronic sinusitis. These may include pain medicines, decongestants, nasal steroid sprays, or saline sprays. However, for sinusitis related to a bacterial infection, your health care provider will prescribe antibiotic medicines. These are medicines that will help kill the bacteria causing the infection. Rarely, sinusitis is caused by a fungal infection. In these cases, your health care provider will prescribe antifungal medicine. For some cases of chronic sinusitis, surgery is needed. Generally, these are cases in which sinusitis recurs more than 3 times per year, despite other treatments. HOME CARE INSTRUCTIONS Drink plenty of water. Water helps thin the mucus so your sinuses can drain more easily. Use a humidifier. Inhale steam 34 times a day (for example, sit in the bathroom with the shower running). Apply a warm, moist washcloth to your face 34 times a day, or as directed by your health care provider. Use saline nasal sprays to help moisten and clean your sinuses. Take medicines only as directed by your health care provider. If you were prescribed either an antibiotic or antifungal medicine, finish it all even if you start to feel better. SEEK IMMEDIATE MEDICAL CARE IF: You have increasing pain or severe headaches. You have nausea, vomiting, or drowsiness. You have swelling around your face. You have vision problems. You have a stiff neck. You have difficulty breathing. This information is not intended to replace advice given to you by your health care provider. Make sure you discuss any questions you have with your health care provider. Document Released: 04/24/2006 Document Revised: 02/10/2015 Document Reviewed: ExitCare Patient Information 2015 [employer]. No follow up information was provided. Extracted from: Title: Office Visit Note Author: Reed Grant MD Date: 09/25/15 Assessment/Plan Acute bacterial sinusitis Rx for Amoxil 875mg bid and Mucinex DM 1200mg bid. Ordered: Office Visit Level 4 Est 37715 Acute lymphadenitis Advil for the discomfort and follow up as needed. Ordered: Office Visit Level 4 Est 71817 Orders: amoxicillin, 875 mg 1 tabs, Oral, BID, X 10 days, # 20 tabs, 0 Refill( s), Pharmacy: [facility] #[id number], 1 tabs Oral BID,x10 days
--- OUTSIDE RECORDS SUMMARY | 2016-08-11 06:43 | XMS REPORT | Continuity of Care Document ---
Author Author [facility] Organization [facility] Address Unknown Phone Unavailable Care Team Providers Care Stream Control Officer Name Role Phone ESTRADA KELLOGG MD Primary Care Physician [phone] Insurance Providers Payer Name Policy Number Subscriber Name Relationship Medicare [id number] Elise Queen 18 Self [facility] Plan [id number] Elise Queen 16 Self Advance Directives Directive Response Recorded Date/Time Advanced Directives Type None 09/11/13 6:52pm Ordered Resuscitation Status Full Code 09/11/13 5:54pm Problems Medical Problems Problem Onset Date Status Acute Bronchitis Unknown Active Diarrhea improved Unknown Active Nausea Unknown Active Chest pain Unknown Active Chest pain Unknown Active Medications Medication Dose Route Sig Days/Qty Instructions Order Date Discontinued Date Status Divalproex Sodium 1,500 Mg PO BEDTIME 05/26/08 11/04/10 Discontinued Omeprazole 20 Mg PO DAILY 05/02/08 05/26/08 Discontinued [Hormone Patch] 05/26/08 11/05/10 Discontinued Dicyclomine Hcl 1 Tab PO FOUR TIMES DAILY 05/19/08 05/26/08 Discontinued Ketorolac Tromethamine 1 Tab PO FOUR TIMES DAILY 05/19/08 05/26/08 Discontinued Ipratropium [place] 14 Gm IH NEEDED 05/26/08 Active [place] Carbonate 300 Mg PO THREE TIMES A DAY 05/26/08 11/04/10 Discontinued Levothyroxine Sodium 25 Mcg PO DAILY 11/04/10 04/05/12 Discontinued Levothyroxine Sodium 75 DAILY 04/05/12 Active Meloxicam 7.5 Mg PO NEEDED 09/11/13 Active Cyclobenzaprine Hcl 10 Mg PO Every 8 Hours PRN SPASMS 09/11/13 Active Mometasone/Formoterol 2 Puff INH TWICE A DAY 01/14/14 Active Albuterol Sulfate 1 Puff INH NEEDED 01/14/14 Active [place]-3 Fatty Acids 1 Mg PO TWICE A DAY 01/14/14 Active Cyanocobalamin (Vitamin B-12) 1,500 Tab PO DAILY 01/14/14 Active Vitamin B Complex 1 Cap PO DAILY 01/14/14 Active Acetaminophen 1-2 Tab PO Every 6 Hours PRN PAIN 01/15/14 Active Social History Social History Problem Response Recorded Date/Time Smoking Status Heavy Smoker 09/11/2013 6:53pm When did patient START smoking? 13 years old 01/15/2014 6:42am Chewing Tobacco Status No 09/11/2013 4:17pm Hx Substance Use No 01/15/2014 6:42am Hx Alcohol Use Y WINE AT TIMES 01/15/2014 6:42am Has the pt used tobacco in the last 12 months Yes 01/15/2014 6:42am Query Response Start Date Stop Date Smoking Status Current every day smoker Hospital Discharge Instructions No hospital discharge instructions. Plan of Care No plan of care. Functional Status No functional status results. Allergies, Adverse Reactions, Alerts Allergen Type Severity Reaction Status Last Updated Nitroglycerin Adverse Reaction Intermediate Severe Hypotension Active 11/18 Bismuth subsalicylate Allergy Mild HIVES Active 09/11/13 Morphine Adverse Reaction Intermediate Hallucinations Active 09/11/13 Codeine Adverse Reaction Unknown CAUSES NAUSEA Active 09/11/13 Lactose Allergy Unknown SEVERE CRAMPS Active 09/11/13 Adhesive Adverse Reaction Unknown REDNESS Active 01/14/14 Meperidine Adverse Reaction Unknown NAUSEA Active 01/14/14 BUG SPRAY Allergy Mild HIVES Active 11/04/10 Immunizations Name Given Type Hx Influenza Vaccination Y FEB 2013 Historical Hx Pneumococcal Vaccination Y 2009 Historical Hx Tetanus, Diptheria, Pertussis NO OPEN AREAS. Historical Hx Influenza Vaccination Y FEB 2013 Historical Hx Tetanus, Diptheria, Pertussis NO OPEN AREAS. Historical Vital Signs Acute Vital Signs Vital Response Date/Time Temperature (Fahrenheit) 97.9 deg F (96.8 - 99.1) Temperature (Calculated Celsius) 36.00793 degrees C (36.0 - 37.3) Temperature Source Temporal Pulse Rate (adult) 66 bpm (60 - 100) Respiratory Rate 16 breaths/min (10 - 20) O2 Sat by Pulse Oximetry 98 % (90 - 100) Oxygen Delivery Method Room Air Blood Pressure 128/64 mm Hg Blood Pressure Source Automatic Cuff Height 5 ft 5.5 in Weight 111 lb Body Mass Index 18.0 kg/m^2 Results Test Source Date Result Interp. Ref. Range Comments Activated Partial Thromboplast Time September 11, 2013 4:25pm 34.4 SEC N 24- 36 Alanine Aminotransferase (ALT/SGPT) September 11, 2013 4:25pm 24 U/L N 9-52 Albumin September 11, 2013 4:25pm 4.7 G/DL N 3.5-5.0 Albumin/Globulin Ratio September 11, 2013 4:25pm 1.6 RATIO N 1.1-2.2 Alkaline Phosphatase September 11, 2013 4:25pm 57 U/L N 38-126 Anion Gap January 15, 2014 6:44am 9 MEQ/L N 5-15 COMMENT SCU WILL CALL Aspartate Amino Transf (AST/SGOT) September 11, 2013 4:25pm 29 U/L N 14-36 B-Type Natriuretic Peptide January 29, 2008 2:23pm 27 PG/ML N 15-100 BUN/Creatinine Ratio January 15, 2014 6:44am 24 RATIO N 6-26 COMMENT SCU WILL CALL Band Neutrophils # January 15, 2014 6:44am 0.1 T/MM3 - COMMENT SCU WILL CALL Band Neutrophils % January 15, 2014 6:44am 1.0 % N 0-6 COMMENT SCU WILL CALL Basophils # (Auto) September 12, 2013 7:30am 0.1 T/MM3 N 0-0.2 Basophils (%) (Auto) September 12, 2013 7:30am 1.2 % N 0-2 Blood Urea Nitrogen January 15, 2014 6:44am 17.0 MG/DL N 7-17 COMMENT SCU WILL CALL Calcium Level January 15, 2014 6:44am 9.7 MG/DL N 8.4-10.2 COMMENT SCU WILL CALL Calculated Osmolality January 15, 2014 6:44am 271 MOSM/KG N 261-280 COMMENT SCU WILL CALL Carbon Dioxide Level January 15, 2014 6:44am 25 MEQ/L N 22-30 COMMENT SCU WILL CALL Chemistry Specimen Hemolysis January 15, 2014 6:44am < 15 0-25 0-25 : No Hemolysis.26-70: Slight Hemolysis - can falsely elevate K and Urine Protein. 71-285: Moderate Hemolysis - can falsely elevate K, Troponin I, CA 19-9, PTH, CSF GLucose, and Urine Protein, and can falsely decrease Phenytoin. 286-999: Gross Hemolysis - can falsely elevate K, Troponin I, CA 19-9, PTH, CSF Glucose, and Urine Protine, and can falsely decrease Phenytoin. Recommend specimen recollection. Chloride Level January 15, 2014 6:44am 106 MEQ/L N 98-107 COMMENT SCU WILL CALL Cholesterol Level September 12, 2013 5:20am 207 MG/DL H 132-199 Cholesterol/HDL Ratio September 12, 2013 5:20am 3.3 RATIO N 0-4.0 Creatine Kinase MB January 30, 2008 8:15am 0.1 NG/ML N 0-3.4 Creatinine January 15, 2014 6:44am 0.7 MG/DL N 0.7-1.2 COMMENT SCU WILL CALL D-Dimer January 29, 2008 4:48pm 442 NG/ML N 68-494 <500 NG/ML FIBRIN DEGRADATION EQUIVALENTS=PRESUMPTIVE NEGATIVE FOR PE OR DVT >500 NG/ML FIBRIN DEGRADATION EQUIVALENTS =ADDITIONAL EVALUATION FOR PE OR DVT RECOMMENDED VALUES ARE DECREASED SHARPLY BY ANTICOAGULANT THERAPY EKG May 26, 2008 9:48am Complete - COMMENT IN SSU #10, PREOP Eosinophils # (Auto) September 12, 2013 7:30am 0.3 T/MM3 N 0-0.5 Eosinophils # (Manual) January 15, 2014 6:44am 0.1 T/MM3 N 0-0.5 COMMENT SCU WILL CALL Eosinophils % (Manual) January 15, 2014 6:44am 1.0 % N 0-4 COMMENT SCU WILL CALL Eosinophils (%) (Auto) September 12, 2013 7:30am 4.8 % H 0-4 Globulin September 11, 2013 4:25pm 2.9 G/DL N 2.4-3.6 Glomerular Filtration Rate Calc January 15, 2014 6:44am 82 - COMMENT SCU WILL CALL Glucose Level January 15, 2014 6:44am 103 MG/DL N 65-110 COMMENT SCU WILL CALL Group A Streptococcus Screen December 27, 2012 1:55pm Negative - Strep culture confirmation to follow HDL Cholesterol Direct September 12, 2013 5:20am 63 MG/DL H 40-60 Hematocrit January 15, 2014 6:44am 40.5 % N 36-46 COMMENT SCU WILL CALL Hemoglobin January 15, 2014 6:44am 13.8 GM/DL N 12-16 COMMENT SCU WILL CALL Icterus Index January 15, 2014 6:44am < 2 0-7 COMMENT SCU WILL CALL Immature Granulocyte # (Auto) September 12, 2013 7:30am 0.00 T/MM3 N 0.00- 0.03 Immature Granulocyte % (Auto) September 12, 2013 7:30am 0.0 % N 0.0-0.5 LDL Cholesterol, Calculated September 12, 2013 5:20am 126.8 N 66-159 Lymphocytes # (Auto) September 12, 2013 7:30am 1.9 T/MM3 N 1-4.8 Lymphocytes # (Manual) January 15, 2014 6:44am 2.2 T/MM3 N 1-4.8 COMMENT SCU WILL CALL Lymphocytes % (Manual) January 15, 2014 6:44am 28.0 % N 23-45 COMMENT SCU WILL CALL Lymphocytes (%) (Auto) September 12, 2013 7:30am 32.7 % N 23-45 Magnesium Level September 11, 2013 4:25pm 2.0 MG/DL N 1.6-2.3 Mean Corpuscular Hemoglobin January 15, 2014 6:44am 31.7 UUG N 26-34 COMMENT SCU WILL CALL Mean Corpuscular Hemoglobin Concent January 15, 2014 6:44am 34.1 GM/DL N 31-37 COMMENT SCU WILL CALL Mean Corpuscular Volume January 15, 2014 6:44am 93.1 UM3 N 80-100 COMMENT SCU WILL CALL Mean Platelet Volume January 15, 2014 6:44am 8.8 UM3 L 9.4-12.4 COMMENT SCU WILL CALL Monocytes # (Auto) September 12, 2013 7:30am 0.5 T/MM3 N 0-0.8 Monocytes # (Manual) January 15, 2014 6:44am 0.1 T/MM3 N 0-0.8 COMMENT SCU WILL CALL Monocytes % (Manual) January 15, 2014 6:44am 1.0 % N 0-9.0 COMMENT SCU WILL CALL Monocytes (%) (Auto) September 12, 2013 7:30am 9.4 % H 0-9.0 EE-Wsi-H-Type Natriuretic Peptide September 11, 2013 4:25pm 127 PG/ML N 0-175 Rule in cut points: <50 years old=450; 50-75 years old=900; >75 years old=1800; When utilizing ProBNP rule-in cut points, adjustment for impaired renal function is typically not required. Neutrophils # (Auto) September 12, 2013 7:30am 2.9 T/MM3 N 1.8-7.7 Neutrophils # (Manual) January 15, 2014 6:44am 5.4 T/MM3 N 1.8-7.7 COMMENT SCU WILL CALL Neutrophils % (Manual) January 15, 2014 6:44am 69.0 % H 33-66 COMMENT SCU WILL CALL Neutrophils (%) (Auto) September 12, 2013 7:30am 51.9 % N 33-66 Platelet Count January 15, 2014 6:44am 333 T/MM3 N 130-400 COMMENT SCU WILL CALL Potassium Level January 15, 2014 6:44am 4.0 MEQ/L N 3.6-5 COMMENT SCU WILL CALL Procalcitonin January 06, 2013 6:20pm < 0.05 NG/ML - PCT </=0.5 ng/ mL - sepsis not likely;PCT >0.5 and </=2 ng/mL - sepsis possible; PCT >2 ng/mL - sepsis likely; PCT >/=10 ng/mL - systemic inflammatory response - sepsis or septic shock highly indicated. Prothromb Time International Ratio September 11, 2013 4:25pm 0.96 N 0.86-1.10 THERAPUTIC RANGE=2.00-3.00 FOR ANTI-THROMBOSIS THERAPUTIC RANGE=2.50-3.50 FOR IMPLANTED VALVE RDW Standard Deviation January 15, 2014 6:44am 43.4 FL N 36.9-50.2 COMMENT SCU WILL CALL Red Blood Count January 15, 2014 6:44am 4.35 M/MM3 N 4.00-5.20 COMMENT SCU WILL CALL Sodium Level January 15, 2014 6:44am 140 MEQ/L N 134-144 COMMENT SCU WILL CALL Tests Not Done May 02, 2008 5:40pm Not done - Has specimen been collected/obtained? Y Thyroid Stimulating Hormone (TSH) September 11, 2013 4:25pm 3.36 MIU/L N 0.47- 4.68 Thyroxine (T4) January 29, 2008 2:23pm 7.1 UG/DL N 4.5-11.5 Total Bilirubin September 11, 2013 4:25pm 0.60 MG/DL N 0.20-1.30 Total Protein September 11, 2013 4:25pm 7.6 G/DL N 6.3-8.2 Triglycerides Level September 12, 2013 5:20am 86 MG/DL N 35-135 Troponin I September 12, 2013 1:15pm < 0.012 ng/ml 0-0.12 Turbidity January 15, 2014 6:44am < 20 0-20 COMMENT SCU WILL CALL Urine Amorphous Urates September 12, 2013 5:20am Few - Has specimen been collected/obtained? Y Urine Bacteria September 12, 2013 5:20am 3+ H - Has specimen been collected/ obtained? Y Urine Bilirubin September 12, 2013 5:20am Negative - Has specimen been collected/obtained? Y Urine Blood September 12, 2013 5:20am Negative - Has specimen been collected/obtained? Y Urine Collection Type September 12, 2013 5:20am Cleancatch-midstream - Has specimen been collected/obtained? Y Urine Color September 12, 2013 5:20am Yellow - Has specimen been collected/ obtained? Y Urine Culture Indicated September 12, 2013 5:20am Cult reflexed &setup - Has specimen been collected/obtained? Y Urine Glucose (UA) September 12, 2013 5:20am Negative - Has specimen been collected/obtained? Y Urine Ketones September 12, 2013 5:20am Trace H - Has specimen been collected /obtained? Y Urine Leukocyte Esterase September 12, 2013 5:20am 1+ H - Has specimen been collected/obtained? Y Urine Mucus July 13, 2013 5:12pm Present - Has specimen been collected/obtained? Y Urine Nitrite September 12, 2013 5:20am Negative - Has specimen been collected/obtained? Y Urine Protein September 12, 2013 5:20am Negative - Has specimen been collected/obtained? Y Urine RBC September 12, 2013 5:20am None seen /HPF - Has specimen been collected/obtained? Y Urine Specific [place] September 12, 2013 5:20am >=1.030 H - Has specimen been collected/obtained? Y Urine Squamous Epithelial Cells September 12, 2013 5:20am >50 - Has specimen been collected/obtained? Y Urine Turbidity September 12, 2013 5:20am Sl cloudy - Has specimen been collected/obtained? Y Urine Urobilinogen September 12, 2013 5:20am 0.2 EU/DL - Has specimen been collected/obtained? Y Urine WBC September 12, 2013 5:20am Tntc /HPF H - Has specimen been collected /obtained? Y Urine pH September 12, 2013 5:20am 5.0 - Has specimen been collected/ obtained? Y VLDL Cholesterol September 12, 2013 5:20am 17.2 MG/DL N 0-28 Venous Blood Lactate January 06, 2013 6:20pm 1.5 MMOL/L N 0.6-2.2 White Blood Count January 15, 2014 6:44am 7.8 T/MM3 N 4.5-11.0 COMMENT SCU WILL CALL Blood Culture Blood January 06, 2013 6:25pm NO GROWTH AFTER 5 DAYS Group A Streptococcus Culture Throat December 27, 2012 2:14pm Urine Culture Urine, Clean Catch-Midstream September 12, 2013 6:20am Staphylococcus Epidermidis Procedures No known history of procedures.
--- OUTSIDE RECORDS SUMMARY | 2016-08-11 06:43 | XMS REPORT | Continuity of Care Document ---
Author Author [facility] Organization [facility] Address Unknown Phone Unavailable Allergies Active Description Code Type Severity Reaction Onset Reported/Identified Relationship to Patient Clinical Status Yes adhesive Drug Allergy Mild RED RASH 07/23/2013 Medications Problems Procedures Code Description Performed By Performed On [address] VITRECTOMY NEC Florian CALDERÓN, Noe Cabral 07/30/2013 14.9 OTHER POST SEGMENT OPS Florian CALDERÓN, Noe Cabral 07/30/2013 Results Encounters ACCT No. Visit Date/Time Discharge Status Pt. Type Provider Facility Loc./Unit Complaint [id number] 07/30/2013 07:44:00 2013 14:40:00 DIS Outpatient Florian CALDERÓN, [facility] ASHLEY [id number] 07/23/2013 13:53:00 2013 13:53:00 DIS Outpatient Florian CALDERÓN, [facility] ISAURA
--- OUTSIDE RECORDS SUMMARY | 2016-08-11 06:43 | XMS REPORT | Referral Summary ---
Author Author [facility] Organization [facility] Address Unknown Phone Unavailable Care Team Providers Care Table Runner Name Role Phone Oral Grant Primary Care Physician [phone] Encounter VC Date(s): 12/30/14 - 12/30/14 [facility] [address] [place], [place] [address] Discharge Diagnosis: Lumbar radiculitis Discharge Diagnosis: Lumbago Discharge Disposition: 01-Home or Self Care Attending [...] Refill(s), Pharmacy: [facility] #[id number] Start Date: 05/22/15 Status: Ordered levothyroxine 75 mcg (0.075 mg) oral tablet See Instructions, TAKE ONE TABLET BY MOUTH DAILY, # 30 tabs, 2 Refill(s), eRx: [facility] #[id number], TAKE ONE TABLET BY MOUTH DAILY Start Date: 02/16/15 Status: Ordered Lexapro 5 mg oral tablet 5 mg 1 tabs, Oral, Daily, # 30 tabs, 1 Refill(s), Pharmacy: [facility] # [id number], 1 tabs Oral Daily Start Date: 03/27/15 Status: Ordered Robaxin 500 mg oral tablet 500 mg 1 tabs, Oral, QID, as needed for pain, # 120 tabs, 0 Refill(s), Pharmacy : [facility] #[id number], 1 tabs Oral QID,PRN:as needed for pain Start Date: 01/22/15 Status: Ordered Symbicort 80 mcg-4.5 mcg/inh inhalation aerosol 2 puffs, Inhalation, BID, # 10.2 g, 3 Refill(s), Pharmacy: [facility] # [id number] Start Date: 05/21/15 Status: Ordered Ventolin HFA 90 mcg/inh inhalation aerosol 2 puffs, Inhalation, QID, # 2 Each, 3 Refill(s), Pharmacy: [facility] # [id number], 2 puffs Inhalation QID Start Date: 01/01/15 [...] 1968 tonsilectomy 195 anterior lumbar fusion 2005 Cataract surgery left [...] Office Visit Note Author: Mati Dominguez Date: 12/30/14 Assessment/Plan Lumbago Ordered: XR Spine Lumbosacral Minimum 4 Views Lumbar radiculitis Conservative treatment options were discussed with the patient length. She feels as though she is exhausted conservative treatment options. She's tried physical therapy and injections. She wants to discuss surgical treatment options. I recommended updating her lumbar spine MRI prior to making any definitive treatment recommendations. 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 Mild to moderate right foraminal narrowing at L4 5 and severe left foraminal narrowing at L4 5. Center previous fusion at L5- S1 with bilateral foraminal narrowing, right greater than left. I will see the patient back following the MRI for further recommendations. I don't think the disc extrusion at L2-3 is likely causing her symptoms seem to be more in an L5 distribution.
--- OUTSIDE RECORDS SUMMARY | 2016-08-11 06:43 | XMS REPORT | Referral Summary ---
Author Author [facility] Organization [facility] Address Unknown Phone Unavailable Care Team Providers Care Histopath Tech Name Role Phone Oral Grant Primary Care Physician [phone] Encounter VC Date(s): 12/30/15 - 12/30/15 [facility] [address] [place] [address] Discharge Disposition: 01-Home or Self Care Attending Physician: Reed Grant MD Admitting Physician: Reed Grant MD Vital Signs Most recent to 1 oldest [Reference Range]: Blood Pressure 112/64 mmHg [90-140/60-90 mmHg] (12/30/15 11:13 AM) Problem List Condition Effective Dates Status [...] # 42 g, 0 Refill(s), Pharmacy: [facility] #[id number] Start Date: 10/09/15 Status: Ordered ferrous sulfate Oral, 0 Refill(s) Start Date: 12/30/15 Status: Ordered levothyroxine 75 mcg (0.075 mg) oral tablet See Instructions, TAKE ONE TABLET BY MOUTH DAILY, # 30 tabs, eRx: [facility] #[id number], TAKE ONE TABLET BY MOUTH DAILY Start Date: 11/06/15 Status: Ordered Lexapro 5 mg oral tablet 5 mg 1 tabs, Oral, Daily, # 30 tabs, 1 Refill(s), Pharmacy: [facility] # [id number], 1 tabs Oral Daily Start Date: 03/27/15 Status: Ordered Robaxin 500 mg oral tablet 500 mg 1 tabs, Oral, QID, as needed for pain, # 120 tabs, 0 Refill(s), Pharmacy : [facility] #[id number], 1 tabs Oral QID,PRN:as needed for pain Start Date: 01/22/15 Status: Ordered Symbicort 80 mcg-4.5 mcg/inh inhalation aerosol See Instructions, INHALE TWO PUFFS BY MOUTH TWICE A DAY, # 10.2 unknown unit, 2 Refill(s), eRx: [facility] #[id number], INHALE TWO PUFFS BY MOUTH TWICE A DAY Start Date: 11/06/15 Status: Ordered Ventolin HFA 90 mcg/inh inhalation aerosol 2 puffs, Inhalation, QID, as needed for wheezing, # 1 Each, 3 Refill(s), Pharmacy: [facility] #[id number], 2 puffs Inhalation QID,PRN:as needed for wheezing Start Date: 11/02/15 Status: Ordered Vitamin B-12 5,000 mcg, 0 Refill(s) Start Date: 10/09/13 Status: Ordered Vitamin B6 100 mg oral tablet 2 tabs, Oral, Daily, 0 Refill(s) Start Date: 10/09/13 Status: Ordered Vitamin C 500 mg, Oral, 0 Refill(s) Start Date: 10/09/13 Status: Ordered Zithromax Z-Erick 250 mg oral tablet 1 packets, Oral, Daily, as directed on package labeling, X 5 days, # 6 tabs, 0 Refill(s), Pharmacy: [facility] #[id number], 1 packets Oral Daily,x5 days, Instr:as directed on package labeling Start Date: 12/30/15 Stop Date: 01/04/16 Status: Ordered Results Hematology Most recent to 1 oldest [Reference Range]: WBC [5.0-10.0 5.7 10*3/uL 10*3/uL] (12/30/15 12:05 PM) RBC [3.70-5.20] 4.85 (12/30/15 12:05 PM) Hgb [12.0-16.0 14.8 gm/dL gm/dL] (12/30/15 12:05 PM) Hct [37.0-47.0 %] 43.9 % (12/30/15 12:05 PM) MCV [80.0-96.0 fL] 90.5 fL (12/30/15 12:05 PM) MCH [26.0-34.0 pg] 30.5 pg (12/30/15 12:05 PM) MCHC [32.0-36.0 33.7 gm/dL gm/dL] (12/30/15 12:05 PM) RDW [0.0-14.5 %] 12.6 % (12/30/15 12:05 PM) Platelet [150-400 293 10*3/uL 10*3/uL] (12/30/15 12:05 PM) MPV [8.8-14.8 fL] 9.7 fL (12/30/15 12:05 PM) Neutrophils [50-70 56 % %] (12/30/15 12:05 PM) Lymphocytes [20-40 29 % %] (12/30/15 12:05 PM) Monocytes [4-8 %] 12 % *HI* (12/30/15 12:05 PM) Eosinophils [0-6 %] 2 % (12/30/15 12:05 PM) Basophils [0-2 %] 1 % (12/30/15 12:05 PM) Neutro Absolute 3.22 10*3 [2.50-7.00 10*3] (12/30/15 12:05 PM) Lymph Absolute 1.68 10*3 [1.00-4.00 10*3] (12/30/15 12:05 PM) Woods Absolute 0.67 10*3 [0.20-0.80 10*3] (12/30/15 12:05 PM) Eos Absolute 0.11 10*3 [0.00-0.60 10*3] (12/30/15 12:05 PM) Baso Absolute 0.05 [0.00-0.30] (12/30/15 12:05 PM) Immunizations Vaccine Date Refusal Reason tetanus/diphth/pertuss [...] 1968 tonsilectomy 195 anterior lumbar fusion 2006 Cataract surgery left [...] Sinusitis, Adult Sinusitis is redness, soreness, and puffiness (inflammation) of the air pockets in the bones of your face (sinuses). The redness, soreness, and puffiness can cause air and mucus to get trapped in your sinuses. This can allow germs to grow and cause an infection. HOME CARE Drink enough fluids to keep your pee (urine) clear or pale yellow. Use a humidifier in your home. Run a hot shower to create steam in the bathroom. Sit in the bathroom with the door closed. Breathe in the steam 34 times a day. Put a warm, moist washcloth on your face 34 times a day, or as told by your doctor. Use salt water sprays (saline sprays) to wet the thick fluid in your nose. This can help the sinuses drain. Only take medicine as told by your doctor. GET HELP RIGHT AWAY IF: Your pain gets worse. You have very bad headaches. You are sick to your stomach (nauseous). You throw up (vomit). You are very sleepy (drowsy) all the time. Your face is puffy (swollen). Your vision changes. You have a stiff neck. You have trouble breathing. MAKE SURE YOU: Understand these instructions. Will watch your condition. Will get help right away if you are not doing well or get worse. This information is not intended to replace advice given to you by your health care provider. Make sure you discuss any questions you have with your health care provider. Document Released: 10/10/2008 Document Revised: 05/15/2015 Document Reviewed: ExitCare Patient Information 2016 [facility]. [facility] Weakness Weakness is a lack of strength. It may be felt all over the body (generalized) or in one specific part of the body (focal). Some causes of weakness can be serious. You may need further medical evaluation, especially if you are elderly or you have a history of immunosuppression (such as chemotherapy or HIV), kidney disease, heart disease, or diabetes. CAUSES Weakness can be caused by many different things, including: Infection. Physical exhaustion. Internal bleeding or other blood loss that results in a lack of red blood cells (anemia). Dehydration. This cause is more common in elderly people. Side effects or electrolyte abnormalities from medicines, such as pain medicines or sedatives. Emotional distress, anxiety, or depression. Circulation problems, especially severe peripheral arterial disease. Heart disease, such as rapid atrial fibrillation, bradycardia, or heart failure. Nervous system disorders, such as Guillain-Méndez syndrome, multiple sclerosis, or stroke. DIAGNOSIS To find the cause of your weakness, your caregiver will take your history and perform a physical exam. Lab tests or X-rays may also be ordered, if needed. TREATMENT Treatment of weakness depends on the cause of your symptoms and can vary greatly. HOME CARE INSTRUCTIONS Rest as needed. Eat a well-balanced diet. Try to get some exercise every day. Only take [id number] or prescription medicines as directed by your caregiver. SEEK MEDICAL CARE IF: Your weakness seems to be getting worse or spreads to other parts of your body. You develop new aches or pains. SEEK IMMEDIATE MEDICAL CARE IF: You cannot perform your normal daily activities, such as getting dressed and feeding yourself. You cannot walk up and down stairs, or you feel exhausted when you do so. You have shortness of breath or chest pain. You have difficulty moving parts of your body. You have weakness in only one area of the body or on only one side of the body. You have a fever. You have trouble speaking or swallowing. You cannot control your bladder or bowel movements. You have black or bloody vomit or stools. MAKE SURE YOU: Understand these instructions. Will watch your condition. Will get help right away if you are not doing well or get worse. This information is not intended to replace advice given to you by your health care provider. Make sure you discuss any questions you have with your health care provider. Document Released: 04/24/2006 Document Revised: 10/23/2012 Document Reviewed: ExitCare Patient Information 2016 [employer]. Fatigue Fatigue is feeling tired all of the time, a lack of energy, or a lack of motivation. Occasional or mild fatigue is often a normal response to activity or life in general. However, long-lasting (chronic) or extreme fatigue may indicate an underlying medical condition. HOME CARE INSTRUCTIONS Watch your fatigue for any changes. The following actions may help to lessen any discomfort you are feeling: Talk to your health care provider about how much sleep you need each night. Try to get the required amount every night. Take medicines only as directed by your health care provider. Eat a healthy and nutritious diet. Ask your health care provider if you need help changing your diet. Drink enough fluid to keep your urine clear or pale yellow. Practice ways of relaxing, such as yoga, meditation, massage therapy, or acupuncture. Exercise regularly. Change situations that cause you stress. Try to keep your work and personal routine reasonable. Do not abuse illegal drugs. Limit alcohol intake to no more than 1 drink per day for non women and 2 drinks per day for men. One drink equals 12 ounces of beer, 5 ounces of wine, or 1 ounces of hard liquor. Take a multivitamin, if directed by your health care provider. SEEK MEDICAL CARE IF: Your fatigue does not get better. You have a fever. You have unintentional weight loss or gain. You have headaches. You have difficulty: Falling asleep. Sleeping throughout the night. You feel angry, guilty, anxious, or sad. You are unable to have a bowel movement (constipation). You skin is dry. Your legs or another part of your body is swollen. SEEK IMMEDIATE MEDICAL CARE IF: You feel confused. Your vision is blurry. You feel faint or pass out. You have a severe headache. You have severe abdominal, pelvic, or back pain. You have chest pain, shortness of breath, or an irregular or fast heartbeat. You are unable to urinate or you urinate less than normal. You develop abnormal bleeding, such as bleeding from the rectum, vagina, nose, lungs, or nipples. You vomit blood. You have thoughts about harming yourself or committing suicide. You are worried that you might harm someone else. This information is not intended to replace advice given to you by your health care provider. Make sure you discuss any questions you have with your health care provider. Document Released: 02/19/2008 Document Revised: 05/15/2015 Document Reviewed: ExitCare Patient Information 2016 [employer]. No follow up information was provided. Extracted from: Title: Office Visit Note Author: Reed Grant MD Date: 12/30/15 Assessment/Plan Acute bacterial sinusitis Will change antibiotic first before consulting a ENT Ordered: Office Visit Level 4 Est 13436 Chronic fatigue, Chronic fatigue Will check a CBC Ordered: Office Visit Level 4 Est 41183 Orders: azithromycin, 1 packets, Oral, Daily, as directed on package labeling , X 5 days, # 6 tabs, 0 Refill(s), Pharmacy: [facility] #[id number], 1 packets Oral Daily,x5 days,Instr:as directed on package labeling
--- OUTSIDE RECORDS SUMMARY | 2016-08-11 06:43 | XMS REPORT | Continuity of Care Document ---
Author Author [facility] Organization [facility] Address Unknown Phone Unavailable Care Team Providers Care Sewage Reticulation Drafting Officer Name Role Phone ESTRADA KELLOGG MD Primary Care Physician [phone] Insurance Providers Payer Name Policy Number Subscriber Name Relationship Medicare [id number] Elise Queen 18 Self [facility] Plan [id number] Elise Queen 18 Self Advance Directives Directive Response Recorded Date/Time Advanced Directives Type None 09/11/13 6:52pm Ordered Resuscitation Status Full Code 09/11/13 5:54pm Resuscitation Documents on File No 08/19/14 1:00pm Problems Medical Problems Problem Onset Date Status [...] PO FOUR TIMES DAILY 05/19/08 05/26/08 Discontinued [place] Carbonate 300 Mg PO THREE TIMES A DAY 05/26/08 11/04/10 Discontinued Levothyroxine Sodium 25 Mcg PO DAILY 11/04/10 04/05/12 Discontinued Levothyroxine Sodium 75 DAILY 04/05/12 08/19/14 Discontinued Meloxicam 7.5 Mg PO DAILY 09/11/13 Active Mometasone/Formoterol 2 Puff INH TWICE A DAY 01/14/14 Active Acetaminophen 1-2 Tab PO Every 6 Hours PRN PAIN 01/15/14 Active Levothyroxine Sodium 75 Mcg PO BEFORE BREAKFAST Once daily before breakfast. 08/19/14 Active Mirtazapine 1 Tab PO BEDTIME 08/19/14 Active [Hormone Cream] VAGINALLY Q3D 08/19/14 Active Social History Social History Problem Response Recorded Date/Time Chewing Tobacco Status No 09/11/2013 4:17pm Hx Substance Use No 08/20/2014 12:55pm Hx Alcohol Use Y WINE AT TIMES 08/20/2014 12:55pm Has the pt used tobacco in the last 12 months Yes 08/20/2014 12:55pm Tobacco Usage smoke 09/11/2013 6:09pm Query Response Start Date Stop Date Smoking Status Heavy Smoker Hospital Discharge Instructions No hospital discharge instructions. [...] Given Type Hx Influenza Vaccination Y FEB 2014 Historical Hx Pneumococcal Vaccination Y 2009 Historical Hx Tetanus, Diptheria, Pertussis NO OPEN AREAS. Historical Hx Influenza Vaccination Y FEB 2014 Historical Hx Tetanus, Diptheria, Pertussis NO OPEN AREAS. Historical Vital Signs Acute Vital Signs Vital Response Date/Time Temperature (Fahrenheit) 97.8 deg F (96.8 - 99.1) Temperature (Calculated Celsius) 36.09268 degrees C (36.0 - 37.3) Temperature Source Temporal Pulse Rate (adult) 62 bpm (60 - 100) Respiratory Rate 15 breaths/min (10 - 20) O2 Sat by Pulse Oximetry 98 % (90 - 100) Oxygen Delivery Method Room Air Blood Pressure 105/63 mm Hg Blood Pressure Source Automatic Cuff Height 5 ft 5 in Weight 111 lb Body Mass Index [...] MEQ/L N 22-30 COMMENT SCU WILL CALL Chloride Level January 15, 2014 6:44am 106 [...] VALUES ARE DECREASED SHARPLY BY ANTICOAGULANT THERAPY Eosinophils # (Auto) September 12, 2013 7:30am 0.3 T/MM3 N 0-0.5 Eosinophils # (Manual) January 15, 2014 6:44am 0.1 T/MM3 N 0-0.5 COMMENT SCU WILL CALL Eosinophils % (Manual) January 15, 2014 6:44am 1.0 % N 0-4 COMMENT SCU WILL CALL Eosinophils (%) (Auto) September 12, 2013 7:30am 4.8 % H 0-4 Globulin September 11, 2013 4:25pm 2.9 G/DL N 2.4-3.6 Glucose Level January 15, 2014 6:44am 103 MG/DL N 65-110 COMMENT SCU WILL CALL Group A Streptococcus Screen December 27, 2012 1:55pm Negative - Strep culture confirmation to follow Hematocrit January 15, 2014 6:44am 40.5 % N 36-46 COMMENT SCU WILL CALL Hemoglobin January 15, 2014 6:44am 13.8 GM/DL N 12-16 COMMENT SCU WILL CALL LDL Cholesterol, Calculated September 12, 2013 5:20am [...] 12, 2013 7:30am 9.4 % H 0-9.0 Neutrophils # (Auto) September 12, 2013 7:30am [...] MEQ/L N 3.6-5 COMMENT SCU WILL CALL Prothromb Time International Ratio September 11, 2013 [...] 12, 2013 1:15pm < 0.012 ng/ml 0-0.12 Urine Amorphous Urates September 12, 2013 5:20am [...] Has specimen been collected/obtained? Y Urine Specific [place] September 12, 2013 5:20am >=1.030 H - [...] 12, 2013 5:20am 17.2 MG/DL N 0-28 White Blood Count January 15, 2014 6:44am 7.8 T/MM3 N 4.5-11.0 COMMENT SCU WILL CALL Chemistry Specimen Hemolysis [...] can falsely decrease Phenytoin. Recommend specimen recollection. EKG May 26, 2008 9:48am Complete - COMMENT IN SSU #10, PREOP HDL Cholesterol Direct September 12, 2013 5:20am 63 MG/DL H 40-60 Turbidity January 15, 2014 6:44am < 20 0-20 COMMENT SCU WILL CALL Glomerular Filtration Rate Calc January 15, 2014 6:44am 82 - COMMENT SCU WILL CALL Immature Granulocyte # (Auto) September 12, 2013 7:30am 0.00 T/MM3 N 0.00- 0.03 Immature Granulocyte % (Auto) September 12, 2013 7:30am 0.0 % N 0.0-0.5 Venous Blood Lactate January 06, 2013 6:20pm 1.5 MMOL/L N 0.6-2.2 Procalcitonin January 06, 2013 6:20pm < 0.05 NG/ML - PCT </=0.5 ng/ mL - sepsis not likely;PCT >0.5 and </=2 ng/mL - sepsis possible; PCT >2 ng/mL - sepsis likely; PCT >/=10 ng/mL - systemic inflammatory response - sepsis or septic shock highly indicated. Icterus Index January 15, 2014 6:44am < 2 0-7 COMMENT SCU WILL CALL ZR-Cgl-Y-Type Natriuretic Peptide September 11, 2013 4:25pm 127 PG/ML N 0-175 Rule in cut points: <50 years old=450; 50-75 years old=900; >75 years old=1800; When utilizing ProBNP rule-in cut points, adjustment for impaired renal function is typically not required. Blood Culture Blood January 06, 2013 6:25pm NO GROWTH AFTER 5 DAYS Group A Streptococcus Culture Throat December 27, 2012 2:14pm Urine Culture Urine, Clean Catch-Midstream September 12, 2013 6:20am Staphylococcus Epidermidis Procedures Procedure Status Date Provider(s) MUSC TEST DONE W/N TEST COMP completed 05/28/14 NRV CNDJ TST 3-4 STUDIES completed 05/28/14 Cataract surgery completed 08/20/14 KIM CRAWLEY MD Encounters Encounter Location Date/Time Registered Clinic [facility] 05/28/14 9:27am
--- OUTSIDE RECORDS SUMMARY | 2016-08-11 06:44 | XMS REPORT | Referral Summary ---
Author Author [facility] Organization [facility] Address Unknown Phone Unavailable Care Team Providers Care Fence Maker Name Role Phone Oral Grant Primary Care Physician [phone] Encounter VC Date(s): 05/18/16 - 05/18/16 [facility] [address] [place] [address] Discharge Diagnosis: Vaginal discharge Discharge Disposition: 01-Home or Self Care Attending Physician: Josefina Driver PA-C Admitting Physician: Josefina Driver PA-C Vital Signs Most recent to 1 oldest [Reference Range]: Peripheral Pulse 78 bpm Rate [60-100 bpm] (05/18/16 12:57 PM) Respiratory Rate 18 br/min [14-20 br/min] (05/18/16 12:57 PM) Blood Pressure 124/80 mmHg [90-140/60-90 mmHg] (05/18/16 12:57 PM) Problem List Condition Effective Dates Status [...] codeine Active meperidine Active Medications Breo Ellipta 100 mcg-25 mcg/inh inhalation powder See Instructions, INHALE ONE DOSE BY MOUTH DAILY, # 60 unknown unit, eRx: [facility] #[id number] Start Date: 05/06/16 Status: Ordered cetirizine 10 mg oral tablet [...] FOR APPOINTMENT, # 42.5 unknown unit, eRx: [facility] #[id number], APPLY 1 GM VAGINALLY 3 TIMES WEEKLY -- MUST CALL MD FOR APPOINTMENT Start Date: 01/19/16 Status: Ordered ferrous sulfate Oral, 0 Refill(s) Start Date: 12/30/15 Status: Ordered levothyroxine 75 mcg (0.075 mg) oral tablet See Instructions, TAKE ONE TABLET BY MOUTH DAILY, # 30 tabs, eRx: [facility] #[id number] Start Date: 05/06/16 Status: Ordered Robaxin 500 mg oral tablet 500 mg 1 tabs, Oral, QID, as needed for pain, # 120 tabs, 0 Refill(s), Pharmacy : [facility] #[id number], 1 tabs Oral QID,PRN:as needed for pain Start Date: 01/22/15 Status: Ordered Ventolin HFA 90 mcg/inh inhalation aerosol See Instructions, INHALE TWO PUFFS BY MOUTH FOUR TIMES A DAY NEEDED FOR WHEEZING, # 1 Each, 2 Refill(s), Pharmacy: [facility] #[id number], INHALE TWO PUFFS BY MOUTH FOUR TIMES A DAY NEEDED FOR WHEEZING Start Date: 05/06/16 Status: Ordered Vitamin B-12 5,000 mcg, 0 Refill(s) Start Date: 10/09/13 Status: Ordered Vitamin B6 100 mg oral tablet 2 tabs, Oral, Daily, 0 Refill(s) Start Date: 10/09/13 Status: Ordered Vitamin C 500 mg, Oral, 0 Refill(s) Start Date: 10/09/13 Status: Ordered Results Urinalysis Most recent to 1 oldest [Reference Range]: UA Color Yellow (05/18/16 1:28 PM) UA Appear Sl Cloudy (05/18/16 1:28 PM) UA pH [5.0-8.0] 5.5 (05/18/16 1:28 PM) UA Leuk Est Negative [Negative] (05/18/16 1:28 PM) UA Nitrite Negative [Negative] (05/18/16 1:28 PM) UA Protein Negative [Negative] (05/18/16 1:28 PM) UA Glucose Negative [Negative] (05/18/16 1:28 PM) UA Ketones Negative [Negative] (05/18/16 1:28 PM) UA Urobilinogen 0.2 mg/dL [<=1.0 mg/dL] (05/18/16 1:28 PM) UA Bili [Negative] Negative (05/18/16 1:28 PM) UA Blood [Negative] Negative (05/18/16 1:28 PM) UA Spec Grav >=1.030 [1.003-1.030] (05/18/16 1:28 PM) Type Clean Catch (05/18/16 1:28 PM) Immunizations Given and Recorded Vaccine Date Status Refusal Reason tetanus/diphth/pertuss (Tdap) adult/adol1 07/11/15 Recorded influenza virus vaccine, inactivated 02/24/16 Given influenza virus vaccine, inactivated2 02/02/15 Recorded influenza virus vaccine, inactivated 02/07/14 Recorded influenza virus vaccine, live 01/22/13 Given pneumococcal 13-valent conjugate vaccine3 02/02/15 Recorded pneumococcal 23-polyvalent vaccine 01/16/04 Recorded tetanus-diphth toxoids (Td) adult/adol 02/18/08 Given tetanus-diphth toxoids (Td) adult/adol 08/16/96 Recorded tetanus-diphth toxoids (Td) adult/adol 08/16/96 Given 1Location History: given [facility] 2Location History: [facility] 3Location History: [facility] Procedures Procedure Date Related Diagnosis Body Site Right L2-3 Transforminal 12/12/13 Left L4-5 Transforaminal 05/19/11 cystoscopy1 11/05/10 Cholecystectomy;2 2008 Colonoscopy3 07/04/07 Esophagogastroduodenoscopy4 07/04/07 colonoscopies 1999 [facility] - Total abdominal hysterectomy and 1971 bilateral salpingo-oophorectomy hysterectomy5 1967 Appendectomy6 1956 tonsilectomy 1956 anterior lumbar fusion 2005 Cataract surgery left knee menisectomy skin graft left buttock 11st coaptite suburethral bulking implant 2laparoscopic Dr. Collins 3with polypectomy showing 2 polps of hyperplastic origin. Plan repeat in 10 yrs (06/25/2017) 4Showing fundic gland polyp 5vaginal 6with YOLI-BSO Social History Social History Type Response Smoking Status Current every day smoker; Type: Cigarettes; Tobacco use per day: Pack; Number of years: 38 Assessment and Plan Extracted from: Title: Office Visit Note- Vaginal Author: Josefina Driver PA-C Date: 05/18/16 discharge Assessment/Plan Vaginal discharge UA was normal. Wet prep was also found to be normal. Will send for genital culture at this time. For now, d/w pt that she is to keep the area clean with plain soap and water. May continue to use the estradiol cream. Ordered: Genital Culture Office Visit Level 3 Est [id number]
[2016-08-11] MEDS ORDERED: LIDOCAINE 1% (10mg/ml) 2ml SDV INJ ONE (07:00)
[2016-08-11] MEDS ORDERED: FLEET PHOSPHO-SODA 133 ML ENEMA RECTALLY PRN (07:00)
[2016-08-11] MEDS ORDERED: LR 1,000 ML IV SCH (07:00)
--- NOTE | 2016-08-11 07:38 | ANESPREOP ---
Anesthesia Record Date and Time DATE: 08/11/16 TIME: 07:33 Pre-Op Diagnosis abdominal pain Proposed Surgical Procedure EGD & COLONOSCOPY NPO since: mn Allergies: Coded Allergies: bismuth subsalicylate (Verified Allergy, Mild, HIVES, 03/22/15) Sulfa (Sulfonamide Antibiotics) (Verified Allergy, Unknown, 07/11/15) lactose (Verified Allergy, Unknown, SEVERE CRAMPS, 03/22/15) morphine (Verified Adverse Reaction, Intermediate, Hallucinations, ) nitroglycerin (Verified Adverse Reaction, Intermediate, Severe Hypotension , 03/22/15) adhesive (Unverified Adverse Reaction, Unknown, REDNESS, 03/22/15) PT STATES SHE HAS VERY THIN SKIN codeine (Unverified Adverse Reaction, Unknown, CAUSES NAUSEA, 03/22/15) meperidine (Verified Adverse Reaction, Unknown, NAUSEA, 03/22/15) Uncoded Allergies: BUG SPRAY (Allergy, Mild, HIVES, 11/04/10) Ht/Wt/BMI Height: 5 ' 5.00 " Weight: 53.200 kg BMI: 19.5 kg/m2 Vital Signs Date Time Temp Pulse Resp B/P Pulse Ox O2 Delivery O2 Flow Rate FiO2 08/11/16 07:00 97.8 77 14 139/102 96 Room Air Medications Inpatient Medications Current Medications Medications (Trade) Dose Ordered Sig/Jillian Start Time Stop Time Status Last Admin Dose Admin Lactated Ringer's (Lactated Ringers) 1,000 ml @ 50 mls/hr Q20H 08/11/16 07:00 08/11/16 07:28 50 MLS/HR Sodium Biphosphate/ Sodium Phosphate (Fleet Enema) 1 enema PRN PRN 08/11/16 07:00 Albuterol Sulfate (Ventolin HFA 90 mcg/actuation) 18 Gm Hfa.aer.ad, 1 PUFF PO Q4H PRN for SHORTNESS OF AIR, (Reported) Last Taken: on 08/11/16 0500 Cod Liver Oil (Cod Liver Oil) 1 Each Capsule, 1 CAP PO DAILY, (Reported) Last Taken: on 08/09/16 Cyanocobalamin (Vitamin B-12) (Vitamin B-12) 1,000 Mcg Tablet, 1 TAB PO DAILY, (Reported) Last Taken: on 08/09/16 1400 Cyanocobalamin/Folic Acid (Vitamin H18-Qonnr Acid Tablet) 1 Each Tablet, 4 TAB PO DAILY, (Reported) Last Taken: on 08/09/16 1400 Diphenhydramine HCl (Benadryl) 25 Mg Capsule, 1 CAP PO Q4-6HPRN, (Reported) Last Taken: on 08/11/16 0500 Fluticasone/Vilanterol (Breo Ellipta 100-25 Mcg INH) 1 Each Blst.w.dev, 1 UNIT INH DAILY, (Reported) Last Taken: on 08/11/16 0500 Levothyroxine Sodium (Levothyroxine Sodium) 75 Mcg Tablet, 75 MCG PO ACB, (Reported) Last Taken: on 08/11/16 0500 Mometasone/Formoterol (Dulera 200 Mcg/5 Mcg Inhaler) 13 Gm Hfa.aer.ad, 2 PUFF INH BID, (Reported) Last Taken: on Unknown Date & Time Multivitamin (Multivitamins) 1 Each Tablet, 1 TAB PO DAILY, (Reported) Last Taken: on 08/09/16 1400 Vitamin B Complex (Vitamin B Complex) 1 Each Tablet, 1 TAB PO DAILY, (Reported) Last Taken: on 08/09/16 1400 Zinc Gluconate (Zinc) 50 Mg Tablet, 50 MG PO DAILY, (Reported) Last Taken: on 08/09/16 1400 Currently on Beta Tami: No Medical/Surgical History Anesthesia PMH: Reports: *Angina, *Dyspnea (ON EXERTION), Arthritis (BACK, KNEE ), Asthma (ASTHMA/EMPHYSEMA), COPD (EMPHYSEMA), Cancer (MELANOMA ON BUTTOCK ), Depression, Pneumonia (2006), Reflux, Thyroid Disease (HYPOTHYROID ), Denies: * Diabetes, *Hypertension, *NM, Anesthesia Reactions ( NO AIRWAY/INTUBATION PROBLEMS-N&V), Blood Transfusion Reac, CHF, CVA/Stroke/TIA, Clotting Problems, Deep Vein Thrombosis, Glaucoma, Hepatitis, Hiatal Hernia, Malignant Hyperthermia , Renal Disease, Seizures, Sleep Apnea, Tuberculosis Smoking Status: Current every day smoker # of Packs per Day: 1 # of Years: 30 HX of Last Menstrual Period: HYST Past Surgical History Orthopedic Surgeries: Yes - ANT LUMBAR FUSION, L KNEE MENISECTOMY Abdominal Surgeries: Yes - JAYDA Genitourinary Surgeries: Yes - CYSTO, BLADDER REPAIR WITH MESH Cardiac Surgeries: Yes - HEART CATH Endocrine Surgeries: No Reproductive Surgeries: Yes - HYST Neurological Surgeries: No Ear Surgeries: No Nose Surgeries: No Throat Surgeries: Yes - TONSILLECTOMY Other Surgeries: Yes - R RETINAL TEAR, COLONOSCOPY; OD CATARACT,ALL TEETH EXTRACTED Anesthesia Adverse Reactions: FOUND none Family Hx of Anesthesia Advers: none Hx of Motion Sickness: No Pertinent Findings EKG Rhythm: Sinus Rhythm Physical Exam Respiratory: Bilat breath sounds equal, Lungs clear Cardiovascular: FOUND Regular rate, rhythm, FOUND No murmur Airway Assessment Mallampati Score: I TMD: 3 Fingerbreadths Neck Extension: Good Teeth: Upper Dentures, Lower Dentures Overall Assessment: No Airway Concerns ASA: 3 Plan Anesthesia Plan: TIVA Discussion Discussed risks/options/alternatives of anesthesia and questions answered. Patient consents. Nursing pain assessment noted. Attestation Statement Prior to the delivery of any anesthetic medication, I examined the patient, developed the plan, obtained the patient's consent and discussed the risk and benefits of the procedure with the patient/guardian. CHRISS WHITTINGTON TICKET SPECULATOR Aug 11, 2016 07:37
[2016-08-11] MEDS ORDERED: LIDOCAINE 2% (20mg/ml) 5ml PF SDV ONE (08:11)
[2016-08-11] MEDS ORDERED: PROPOFOL 500mg 50 ML IV ONE (08:11)
[2016-08-11] MEDS ORDERED: LIDOCAINE VISCOUS 2% Oral Soln 15ml UD ONE (08:15)
--- NOTE | 2016-08-11 09:22 | ANESPO ---
Post-Op Note Date 08/11/16 Time: 09:00 Status Pt Participated in Evaluation: Pt participated in person Vital Signs Date Time Temp Pulse Resp B/P Pulse Ox O2 Delivery O2 Flow Rate FiO2 08/11/16 09:15 64 20 128/65 97 Room Air 08/11/16 08:53 97.0 Respiratory Function: Airway patent Mental Status: Alert/oriented Pain Level Intensity: 3 Hydration: IV infusing Complications during Recovery None apparent Follow-Up Instructions Instructions Per Surgeon CHRISS WHITTINGTON CRNA Aug 11, 2016 09:22
--- NOTE | 2016-08-11 09:39 | NUR ---
Pain Pt rates pain in lower abdomen at a 3 on a 1-10 pain scale. Describes it as a cramping feeling that she felt preop as well. Dr. Thornton aware of pain et in to visit with patient postop.
--- NOTE | 2016-08-11 14:48 | OPNOTEF ---
DATE OF SERVICE 08/11/2016 SURGEON Feliciano Thornton MD PREOPERATIVE DIAGNOSIS History for generalized abdominal pain, nausea, vomiting, change in bowel habits. POSTOPERATIVE DIAGNOSIS History for generalized abdominal pain, nausea, vomiting, change in bowel habits, small hiatal hernia with associated irregular GE junction and polyp-like structure involving distal esophagus, colonic polyps located at 20 cm x2, at 50 cm x1, and cecum. PROCEDURE Esophagogastroduodenoscopy with biopsies from distal esophagus via cold biopsy technique, colonoscopy with multiple polypectomies via cold biopsy technique. ANESTHESIA TIVA BRIEF HISTORY/INDICATIONS Mrs. Queen is a 75-year-old female who has had a longstanding history for abdominal pain. She has had also longstanding history for nausea and vomiting in association with this abdominal pain. Recently she has had a component of some change in her bowel habits as well per her report. As a result of the above indications, it was recommended to the patient she should undergo both a colonoscopy and an EGD for further evaluation. For completeness please refer to notes included in the patient's chart. FINDINGS Upon upper endoscopy, esophagus, stomach and duodenum were found to be essentially within normal limits with the exception of the distal esophagus. The patient was found to have a small hiatal hernia and there was some associated slight irregularity of the squamocolumnar junction and a small polyp-like structure involving the distal esophagus that was on the order of about 5 mm in diameter. This polyp-like structure was removed in its entirety via cold biopsy technique as well as performing circumferential biopsies from the distal esophagus. Upon colonoscopy, there was no evidence for angiodysplastic lesions, diverticula or adrián malignancies. The patient was found to have several polyps that were on the order of about 5-6 mm in diameter and removed in their entirety via cold biopsy technique. DESCRIPTION OF PROCEDURE After informed consent was obtained, the patient was brought to the endoscopy suite and placed on the table in left lateral decubitus position. The patient subsequently underwent total intravenous anesthesia by the nurse marker assembler per my request. A formal time-out was then completed. Next, an Olympus gastroscope was inserted into the oral hypopharynx and subsequently the esophagus under direct visualization. The gastroscope was advanced through the esophagus, stomach, pylorus, duodenal bulb, into the second portion of the duodenum. The scope was slowly withdrawn. First and second portions of the duodenum were within normal limits. No evidence for duodenitis or ulcerations were noted. The scope was then drawn back into the prepyloric region and antrum. Again, no mucosal abnormalities were noted. A J-maneuver was performed. Cardia and fundus were within normal limits. Endoscopically, the patient was found to have a small hiatal hernia. Scope was allowed to straighten and slowly withdrawn. The remaining corpus of the stomach was well visualized and again without noted abnormalities. Scope was withdrawn back to the level of the diaphragm. Squamocolumnar junction was about 2-3 cm above the level of the diaphragm. There was some progression of the columnar mucosa upon the squamous epithelium to a length of about 5-8 mm at various locations. Additionally there was a small polyp-like structure as well involving the distal esophagus as discussed above. This polyp-like structure grasped and removed in its entirety via cold biopsy technique. Multiple circumferential biopsies were also obtained from the distal esophagus. Scope was then slowly withdrawn. The remaining esophageal mucosa was found to be within normal limits. Next, attention was directed towards performing the colonoscopy. First a digital examination was performed. Normal sphincter tone. No rectal masses were appreciated. An Olympus colonoscope was inserted in the anus and advanced through the lumen of the colon under direct visualization at all times until the cecum was ascertained. Triangulation of the teniae coli, ileocecal valve and appendiceal lumen were all visualized. Upon the ileocecal valve region, the patient was found to have a polyp on the order of about 5-6 mm in diameter. This polyp-like structure was sessile and grasped and removed in its entirety via cold biopsy technique. The scope was then slowly withdrawn where similar polyps were identified at 50 cm x1, and at 20 cm x2. These polyps were also removed in their entirety via cold biopsy technique and placed within separate containers. There no evidence for angiodysplastic lesions, diverticula or adrián malignancies. The colonoscope was then continued to be withdrawn until it was brought forth back into the rectal vault. A J-maneuver was performed. No worrisome perianal pathology was noted. Scope was allowed to straighten and withdrawn through the anal verge. The patient tolerated the procedure without difficulty and was sent back to the preop area in stable condition. We will await the biopsy results from today's EGD and colonoscopy proceed accordingly with further recommendations thereafter. [facility]
== END 2016-08-11 09:59 | disposition home or self-care (01) ==
LOC: SCU 06:34
PROVIDERS: ATTEND Surgery
DX: D12.0 Benign neoplasm of cecum (principal); D12.6 Benign neoplasm of colon, unspecified; R19.4 Change in bowel habit; K21.9 Gastro-esophageal reflux disease without esophagitis; K44.9 Diaphragmatic hernia without obstruction or gangrene; F17.210 Nicotine dependence, cigarettes, uncomplicated; F41.9 Anxiety disorder, unspecified; I10 Essential (primary) hypertension; J43.9 Emphysema, unspecified; J45.909 Unspecified asthma, uncomplicated; F31.9 Bipolar disorder, unspecified; E03.9 Hypothyroidism, unspecified; Z79.899 Other long term (current) drug therapy
CPT/HCPCS: 43239; 45380; J7120